=== PATIENT | male | born 1955 | race Caucasian/White ===

== ENCOUNTER → 2019-03-04 | Outpatient (CLI) | payer SELFPAY | PROVIDERS: Family Provider Family Medicine; Visit Provider Internal Medicine Medical Oncology | DX: C91.10 Chronic lymphocytic leukemia of B-cell type not having achieved remission (principal); N18.9 Chronic kidney disease, unspecified; Z87.891 Personal history of nicotine dependence; K30 Functional dyspepsia | CPT/HCPCS: 99214 ==

== ENCOUNTER 2019-03-25 13:46 | Outpatient (CLI) | payer MEDICARE, SELFPAY ==
--- NOTE | 2019-03-25 14:15 | ONC FU_ITS ---
An[facility] Patient Note Patient: Fredy Zuniga Unit #: [id number]: 1955 Dictated By: Anel KellerDate of Visit: Mar 25, 2019 Onc MED Follow-Up/Prog Note Chief Complaint: Chronic lymphocytic leukemia. History of Present Illness: Mr Zuniga is a 64 year-old man with chronic lymphocytic leukemia, Sellers stage 0 at initial diagnosis in 2014. In October 2014 he had presented to the [facility] [place] emergency room after he had an acute episode of feeling dizzy and lightheaded. The episode had started abruptly. There was no actual vertigo with the episode. He did have nausea and sweating, and he turned pale. He also had some trouble breathing, and he felt weak and shaky. He did not have chest pain. The episode lasted only about 20 minutes. He had no further symptoms. His initial evaluation in the emergency room was unremarkable except for an elevated white blood cell count. His subsequent evaluation did include a 48 hour Holter monitor, which apparently showed no abnormality. He was seen for follow-up as an outpatient by Dr. Roy. A CBC at that time showed normal hemoglobin at 15.1 g with hematocrit 46%. The red cell indices were normal. The white blood cell count was elevated at 31,700. The differential included 24% neutrophils, 65% lymphocytes, 9% monocytes, and 2% eosinophils. The report included the presence of abnormal lymphocytes (smudge cells). Dr Pandey had seen him initially in December 2014. He had further evaluation with bone marrow aspiration/biopsy on 01/05/2015. The bone marrow showed increased cellularity at 95%. Flow cytometry confirmed the presence of a population of monotypic B cells consistent with chronic lymphocytic leukemia. There was evidence of CD38 expression in excess of 30%, reported to be an adverse prognostic marker. 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 As he appeared to have early stage disease by clinical evaluation (Sellers stage 0), observation/expectant management was recommended. He has otherwise been in good health. He has no other medical illnesses. He has a history of smoking 2 packs of cigarettes daily for 30 years, but he quit smoking 4 years ago. INTERIM HISTORY: As of his follow-up visit in August 2018 his white count had increased to 142,000. His hemoglobin was down just slightly at 13.6 g. His platelet count was normal at 232,000. He appeared stable clinically, and he just continued on observation/expectant management. As of 12/03/2018 there was further decrease in the hemoglobin to 11.4 g. . Was seen in February for follow-up. His white count that time was 152,000. Dr. Pandey recommended that he now begin treatment with ibrutinib. He has received the medication in the mail and is here today for follow-up. Mr. De Dios has no new concerns today. He states he feels he is doing about the same. He denies any recent infections fever or chills. He denies any nausea or vomiting. He states his bowels are normal for him. He has had no new pain. He has not had any labs drawn since March 03, 2019. He states that he is received education on the ibrutinib from the pharmaceutical company as well as our pharmacist on staff. He is aware not to take grapefruit products with the ibrutinib. His ECOG is 1. Past Medical History: Mr. ZUNIGA's medical history is unremarkable. Past Surgical History: Prevnar 13 in 2016 Surgery on the right knee for torn cartilage in 1972 Allergies: No Known Allergies. Medications: Pantoprazole Sodium 1 (40 mg) Tablet, enteric coated Oral daily Family History: Mr. ZUNIGA's mother is : breast cancer, and lung cancer. Mr. ZUNIGA's father is : Cancer. Mr. ZUNIGA has 1 brother who is alive. Father at age 69 with cancer all over . Primary site apparently was not identified. Mother at age 80 with breast cancer. He has one brother who apparently is in good health. 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 Mr. ZUNIGA quit smoking 6 years ago but had smoked 2.0 packs/day for 30 years. He is an active drinker. Mr. ZUNIGA reports the following support systems: lives in own house and adequate transportation available for expected visits. His diet consists of regular meals. He indicates his activity level as: daily activities. He has a history of smoking 2 packs of cigarettes daily for 30 years. He quit smoking 4 years ago. He has had just very occasional alcohol use. Review Of Symptoms: Constitutional Denies fevers, chills, night sweats, excessive fatigue or weight loss. Allergic/Immunologic No reactions. Eyes Denies significant visual changes. No diplopia. No amaurosis. ENMT Denies changes in hearing, sore throat, mouth sores, difficulty or changes in swallowing ability, and/or sinus drainage. Endocrine No diabetes, thyroid disease or hormone replacement. Denies hot flashes or night sweats. Hematologic/Lymphatic Denies easy bruising or bleeding. The patient denies any tender or palpable lymph nodes. Respiratory Denies dyspnea on exertion, chest pain, cough or hemoptysis. Denies orthopnea. Cardiovascular Denies anginal chest pain, palpitations or orthopnea. Gastrointestinal Denies nausea, vomiting, diarrhea, GI bleeding, or constipation. Denies change in bowel habits and/or stool color, no heartburn or early satiety. Genitourinary (M) Denies hematuria, dysuria, increased frequency, urgency, hesitancy or incontinence. Musculoskeletal Denies joint pain, swelling or redness. No decreased range of motion. Integumentary Denies chronic rashes, inflammation, ulcerations or skin changes. Neurologic Denies headache, blurred vision, and no areas of focal weakness or numbness. Normal gait. No sensory problems. Psychiatric Denies insomnia, depression, lauren or mood swings. Vital Signs: Performed on Mar 25, 2019 13:22 Height - 71.00 in Weight - 280.0 lbs (HIGH) BSA - 2.43 sq.m BMI - 39.05 (HIGH) Temperature - 99.0 F (HIGH) Pulse - 54 /min (LOW) Respiration - 22 /min BP - 134/72 mm(hg) O2 Sat - 96 % Pain - 0,1 - No physically strenuous activity, but ambulatory and able to carry out light or sedentary work (e.g. office work, light house work). (ECOG) Physical Examination: Constitutional Alert, oriented, no acute distress. Skin pink, warm and dry. Head Normocephalic; atraumatic. Eyes Conjunctivae and sclerae are clear and without icterus. Pupils are reactive and equal. ENMT No oral exudates, ulcers, masses, thrush or mucositis. Oropharynx clear. Tongue normal. Neck Supple without masses or thyromegaly. No jugular venous distension. Hematologic/Lymphatic No petechiae or purpura. Respiratory Lungs are clear to auscultation without rhonchi or wheezing. Cardiovascular Regular rate and rhythm of heart without murmurs,clicks, gallops or rubs. Abdomen Non-tender, non-distended or ascites. Back/Spine Non-tender to palpation. Extremities No visible deformities, no cyanosis, clubbing or edema. Musculoskeletal No tenderness or swelling, normal range of motion without obvious weakness. Integumentary No rashes or lesions. Neurologic No sensory or motor deficits, normal cerebellar function, normal gait. Psychiatric Alert and oriented times three. Coherent speech. Verbalizes understanding of our discussions today. Laboratory:Test performed on Mar 03, 2019 08:08 Vitamin B12 433 pg/mL % Iron Saturation 20 % Glucose 112 mg/dL LDH, Total 219 IU/L BUN 19 mg/dL Iron, Total 74 mcg/dL Creatinine 1.37 mg/dL TIBC 366 mcg/dL Cr Clearance (Est) 93.58 mL/min Sodium 140 mmol/L Potassium 4.7 mmol/L Chloride 104 mmol/L CO2 24 mmol/L Calcium 9.4 mg/dL Protein, Total 7.1 g/dL Albumin 4.5 g/dL Bilirubin, Total 0.6 mg/dL Alkaline Phosphatase 111 IU/L AST (SGOT) 13 IU/L ALT (SGPT) 12 IU/L WBC 152 10^9/L RBC 3.4 10^12/L HGB 10.2 g/dL HCT 33.3 % MCV 97.9 fl MCH 30 pg MCHC 30.6 g/dL RDW 14.8 % Platelet Count 201 10^9/L Test performed on Dec 02, 2018 15:19 MPV 9.6 fL Neutrophils (Gran) 11.68 10^9/L Lymphocytes 33.87 10^9/L Monocytes 2.34 10^9/L Eosinophils 1.17 10^9/L Manual Segs 10 % Manual Lymphocytes 29 % Manual Monocytes 2 % Manual Eosinophils 1 % Test performed on Dec 02, 2018 07:55 Hemoglobin A1C 5.6 % Impression: 1. Patient with chronic lymphocytic leukemia, Sellers stage 0 by clinical evaluation. 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 He did not, however, have any indication for treatment. 2. He is being followed on observation/expectant management. 3. By clinical evaluation he likely has some underlying COPD. 4. He has evidence of chronic kidney disease. During followup there has been a gradual and progressive increase in his lymphocyte count. He also has now become mildly anemic, and I notice today that he does have significantly enlarged spleen. The serum iron studies show borderline low transferrin saturation, but overall the findings are most consistent with progression of the chronic lymphocytic leukemia, now to Sellers stage III. Plan: 1. Allopurinol 300 mg daily yesterday. 2. He will start Imbruvica???ibrutinib 420 mg daily tonight or in the a.m. 3. He may use Compazine 10 mg 1 every 4-6 as needed nausea if he develops any nausea with the ibrutinib. 4. Of asked for repeat CBC CMP today to know where we are at when he starts the Imbruvica. 5. I have set him up to have weekly labs at [facility] and see Dr. Pandey in 2 weeks as he will be the [facility] seeing patients then. 6. Mr. De Dios was instructed to contact us in the interim should questions or problems arise. 7. AVOID GRAPEFRUIT AND SEVILLE ORANGES WHILE TAKING THIS MEDICATION. 8. The patient and family were informed of chemotherapy plan and specific drugs were discussed. We also discussed how chemotherapy works and identified common side effects including hypertension, hemorrhage, skin rash and skin changes (HFSR-hand foot skin reaction), EKG changes, diverticulitis, colitis reversible posterior leukoencephalopathy syndrome, dysphonia, myelosuppression including neutropenia, anemia, thrombocytopenia, peripheral neuropathy, fatigue, nausea, diarrhea, constipation, skin changes, mouth sores, drug hypersensitivity, allergic reactions or anaphylaxis and abnormal lab values. They have also been informed how to contact the clinic with side effects or symptoms, including but not limited to fever greater than 100.4???, chills, sore throat or mouth sores, cough, nasal discharge, diarrhea, constipation, nausea and/or vomiting not relieved with medications on hand at home, as well as any other concern or question they may have. Our hours are 8:00 a.m. to 4:30 p.m. on Sunday through and 8-12:00 on Sunday. However, someone is non destructive testing scientist 24 hours per day and they have been advised to contact the [facility] at if it is after hours. We have also discussed potential long-term side effects of chemotherapy including secondary cancers, infertility, pulmonary complications, cardiac complications, and again peripheral neuropathy. We have discussed that they certainly need to let us know before taking any antioxidants or herbal or further dietary supplements, as we are unsure of how these agents react with chemotherapy and we request that they avoid these products for now. They are informed that it is okay to take the multivitamins. They verbally state that they understand to take all medications as directed by the provider unless otherwise indicated. Instructions for oral care with baking soda and salt water rinses as well as a guide for use of [id number] medication were provided with the treatment plan. They have been given a written patient treatment plan, of which a copy is in the chart, as well as specific drug information, and a copy of that is also in the chart. Copies are in the chart for further written information provided to the patient. They have no questions and verbalized understanding and are willing to proceed with chemotherapy at this time. The majority of this visit consisted of time spent (30 minutes) in face to face communication with this patient and/or his family in regards to plan of care, side effect identification and management. Signed By: Anel Keller-, AOCNP Sang Pandey MD <<Signature on File>>
[2019-03-25 15:06] LABS: Alanine Aminotransferase 10 U/L (0-41); Albumin Level 4.8 g/dL (3.5-5.2); Alkaline Phosphatase 131 IU/L (40-130); Anion Gap 15.3 (5-19); Aspartate Amino Transferase 15 U/L (0-40); Blood Urea Nitrogen 21 mg/dL (8-23); Calcium 10.1 mg/Dl (8.8-10.2); Carbon Dioxide 27 mmol/L (22-29); Chloride 99 mmol/L (98-107); Globulin 2.2 g/dL (1.3-4.6); Glomerular Filtration Rate 50.7 mL/min (90-130); Glucose 109 mg/dL (74-106); Potassium 4.3 mmol/L (3.5-5.1); Sodium 137 mmol/L (136-145); Total Bilirubin 0.6 mg/dL (0.15-1.2)
[2019-03-25 16:28] LABS: Basophils # 0.3 10^3/uL (0.0-0.1); Basophils % 0.2 %; Eosinophils # 0.2 10^3/uL (0.0-0.8); Eosinophils % 0.1 %; Hematocrit 33.2 % (42.0-52.0); Hemoglobin 9.9 g/dL (11.7-16.6); Lymphocytes % 88.4 %; Mean Corpuscular HGB Conc 29.8 g/dL (30.0-36.0); Mean Corpuscular Hemoglobin 30.7 pg (28.0-34.0); Mean Corpuscular Volume 103.1 fL (80-94); Mean Platelet Volume 9.8 fL (7.4-10.4); Monocytes # 11.8 10^3/uL (0.2-0.9); Monocytes % 7.4 %; Neutrophils # 5.7 10^3/uL (1.8-7.7); Neutrophils % 3.6 %; Nucleated Red Blood Cells % 0 %; Platelet Count 219 10^3/cmm (130-400); Red Blood Count 3.22 10^6/uL (4.1-5.3); Red Cell Distribution Width 14.5 % (12.1-15.1)
[2019-03-25 22:16] LABS: Lymphocytes # 141.6 10^3/uL (0.8-4.8); White Blood Count 160.2 10^3/uL (4.0-10.0)
[2019-03-25 22:17] LABS: Slide Review Slide Review Perform
== END 2019-03-25 13:47 | disposition home or self-care (01) ==
PROVIDERS: Family Provider Family Medicine; PCP Family Medicine; Visit Provider Nurse Practitioner
DX: C91.10 Chronic lymphocytic leukemia of B-cell type not having achieved remission (principal); J44.9 Chronic obstructive pulmonary disease, unspecified; N18.9 Chronic kidney disease, unspecified; Z79.899 Other long term (current) drug therapy; Z87.891 Personal history of nicotine dependence
CPT/HCPCS: 80053; 85025; 99214

== ENCOUNTER 2019-04-08 09:57 | Outpatient (CLI) | payer MEDICARE, SELFPAY ==
--- NOTE | 2019-04-14 23:46 | ONC FU_ITS ---
Dr. Pandey Patient Follow-Up Note Patient: Fredy Pabon Unit #: [id number]: 1955 Dicatated By: Sang Pandey M.D.Date of Visit:Apr 08, 2019 Onc Med Follow-up/Prog Note Chief Complaint: Chronic lymphocytic leukemia. History of Present Illness: This is a 64 year-old man with chronic lymphocytic leukemia, Sellers stage 0 at initial diagnosis in 2014. In October 2014 he had presented to the [place] emergency room after he had an acute episode of feeling dizzy and lightheaded. The episode had started abruptly. There was no actual vertigo with the episode. He did have nausea and sweating, and he turned pale. He also had some trouble breathing, and he felt weak and shaky. He did not have chest pain. The episode lasted only about 20 minutes. He had no further symptoms. His initial evaluation in the emergency room was unremarkable except for an elevated white blood cell count. His subsequent evaluation did include a 48 hour Holter monitor, which apparently showed no abnormality. He was seen for follow-up as an outpatient by Dr. Roy. A CBC at that time showed normal hemoglobin at 15.1 g with hematocrit 46%. The red cell indices were normal. The white blood cell count was elevated at 31,700. The differential included 24% neutrophils, 65% lymphocytes, 9% monocytes, and 2% eosinophils. The report included the presence of abnormal lymphocytes (smudge cells). I had seen him initially in December 2014. He had further evaluation with bone marrow aspiration/biopsy on 01/05/2015. The bone marrow showed increased cellularity at 95%. Flow cytometry confirmed the presence of a population of monotypic B cells consistent with chronic lymphocytic leukemia. There was evidence of CD38 expression in excess of 30%, reported to be an adverse prognostic marker. 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 As he appeared to have early stage disease by clinical evaluation (Sellers stage 0), observation/expectant management was recommended. He has otherwise been in good health. He has no other medical illnesses. He has a history of smoking 2 packs of cigarettes daily for 30 years, but he quit smoking 4 years ago. INTERIM HISTORY: As of his follow-up visit in August 2018 his white count had increased to 142,000. His hemoglobin was down just slightly at 13.6 g. His platelet count was normal at 232,000. He appeared stable clinically, and he continued on observation/expectant management. As of 12/03/2018 there was further decrease in the hemoglobin to 11.4 g. As of his follow-up visit on 03/04/2019 his hemoglobin was down to 10.2 g with his white blood cell count elevated at 152,000. His platelet count was still normal at 201,000. At that time I had discussed the possibility of starting treatment with ibrutinib. It was deferred pending verification of insurance coverage, but he did then start treatment with ibrutinib 420 mg daily on 03/25/2019. He also has been on prophylaxis with allopurinol. He is seen for a scheduled visit. He has been feeling pretty good generally. He says his energy is been a little better. He is doing light work. His appetite is good. He has lost some weight. He does not have fever or night sweats. He has some shortness of breath with activity. He has just occasional cough. He does not complain of chest pain. Has a little bit of acid reflux. He has noticed that his bowel movements have been more frequent, and on Sunday he actually did have some diarrhea. His urination is also been more frequent. He recently has had some pain and swelling in his hands. He has chronic pain in the right knee. He has occasional numbness in the right foot. Medications: Allopurinol 1 Tablet (of 300 mg) Oral daily, Pantoprazole Sodium 1 (40 mg) Tablet, enteric coated Oral daily Allergies: No Known Allergies. Review of Systems: Constitutional - His energy is preetty good. He is doing light work at home. His appetite is good. He has lost some weight. No fever, chills, hot flashes, or night sweats. ECOG score is 1, ENMT - He has a little bit of sinus drainage. No mouth sores. No sore throat or difficulty swallowing, Hematologic/Lymphatic - No abnormal bruising or bleeding, Respiratory - He has shortness of breath with activity. He has just occasional cough. No pleuritic pain or hemoptysis, Cardiovascular - No angina pain. No palpitations, Gastrointestinal - No nausea or vomiting. He has a little acid reflux. Recently he has been having more frequent bowel movement. He had diarrhea on Sunday. No blood in the stool or black stools, Genitourinary (M) - No dysuria or hematuria. His urination has also been more frequent. No urgency or incontinence, Musculoskeletal - He has recently had some pain and swelling in his hands. He has chronic pain in his right knee, Integumentary - No skin complications, Neurologic - No headache or dizziness. He occasionally has numbness in his right foot, Psychiatric - No anxiety or depression. He has an irregular sleeping schedule. Vital Signs: Performed on Apr 08, 2019 10:21 Height - 71.00 in Weight - 241 lbs (LOW) BSA - 2.28 sq.m BMI - 33.61 (HIGH) Temperature - 97 F (LOW) Pulse - 53 /min (LOW) Respiration - 16 /min BP - 120/74 mm(hg) O2 Sat - 96 % Pain - 2 Physical Examination: Constitutional - He looks pretty good generally, Eyes - Sclerae nonicteric. Conjunctivae clear, ENMT - No lesions noted in the oral cavity, Hematologic/Lymphatic - No cervical, clavicular, or axillary adenopathy, Respiratory - Lungs sound clear with diminished air movement bilaterally, Cardiovascular - Heart rhythm is regular. There is no murmur, gallop, or rub noted, Abdomen - Abdomen is moderately distended. Liver is not enlarged. Spleen is significantly enlarged, as before. There is no abdominal mass or ascites noted and there is no inguinal adenopathy, Extremities - No edema, Neurologic - No focal neurologic deficits noted. Lab/Imaging: Test performed on Apr 07, 2019 09:32 Glucose 147 mg/dL BUN 21 mg/dL Creatinine 1.51 mg/dL Cr Clearance (Est) 86.45 mL/min Sodium 139 mmol/L Potassium 3.9 mmol/L Chloride 100 mmol/L CO2 24 mmol/L Calcium 9.4 mg/dL Protein, Total 6.9 g/dL Albumin 4.6 g/dL Bilirubin, Total 0.5 mg/dL Alkaline Phosphatase 103 IU/L AST (SGOT) 9 IU/L ALT (SGPT) 7 IU/L WBC 286.6 10^9/L RBC 3.60 10^12/L HGB 10.9 g/dL HCT 35.6 % MCV 98.9 fl MCH 30.3 pg MCHC 30.6 g/dL RDW 15.2 % Platelet Count 300 10^9/L MPV 10.3 fL Neutrophils (Gran) 2.87 10^9/L Lymphocytes 48.72 10^9/L Monocytes 2.87 10^9/L Eosinophils 2.87 10^9/L Manual Lymphocytes 17 % Manual Monocytes 80 % Manual Eosinophils 1 % Manual Basophils 1 % Impression: 1. Patient with chronic lymphocytic leukemia, Sellers stage 0 at initial diagnosis. 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 He did not, however, have any indication for treatment, and he was initially followed on observation/expectant management. 2. By clinical evaluation he likely has some underlying COPD. 3. He has evidence of chronic kidney disease. During followup there was a gradual and progressive increase in his lymphocyte count. As of February 2019 he had become mildly anemic, and he also had associated splenomegaly. The serum iron studies had shown borderline low transferrin saturation, but overall the findings appeared to be most consistent with progression of the chronic lymphocytic leukemia to Sellers stage III. On 03/25/2019 he began treatment with ibrutinib 420 mg daily. He also started prophylaxis with allopurinol. He appears to be tolerating the medication well. As expected, there has been an increase in his lymphocyte count. His hemoglobin thus far remains stable, and his platelet count remains normal. Plan: He will continue treatment with ibrutinib 420 mg daily. At least for now he also will continue prophylaxis with allopurinol. I will recheck his blood count in 2 weeks, and I will see him for a follow-up visit in one month. Signed By: Sang Pandey M.D. <<Signature on File>>
== END 2019-04-08 09:58 | disposition home or self-care (01) ==
LOC: STFRANCIS 04-09 08:53
PROVIDERS: Family Provider Family Medicine; PCP Family Medicine; Visit Provider Internal Medicine Medical Oncology
DX: C91.10 Chronic lymphocytic leukemia of B-cell type not having achieved remission (principal); G89.29 Other chronic pain; M25.561 Pain in right knee; R16.1 Splenomegaly, not elsewhere classified; J44.9 Chronic obstructive pulmonary disease, unspecified; N18.9 Chronic kidney disease, unspecified; Z79.899 Other long term (current) drug therapy; Z87.891 Personal history of nicotine dependence
CPT/HCPCS: 99214

== ENCOUNTER 2019-05-06 06:00 | Outpatient (CLI) | payer MEDICARE, SELFPAY ==
--- NOTE | 2019-05-09 06:32 | ONC FU_ITS ---
Dr. Pandey Patient Follow-Up Note Patient: Fredy Pabon Unit #: [id number]: 1955 Dicatated By: Sang Pandey M.D.Date of Visit:May 06, 2019 Onc Med Follow-up/Prog Note Chief Complaint: Chronic lymphocytic leukemia. History of Present Illness: This is a 64 year-old man with chronic lymphocytic leukemia, Sellers stage 0 at initial diagnosis in 2014. In October 2014 he had presented to the [place] emergency room after he had an acute episode of feeling dizzy and lightheaded. The episode had started abruptly. There was no actual vertigo with the episode. He did have nausea and sweating, and he turned pale. He also had some trouble breathing, and he felt weak and shaky. He did not have chest pain. The episode lasted only about 20 minutes. He had no further symptoms. His initial evaluation in the emergency room was unremarkable except for an elevated white blood cell count. His subsequent evaluation did include a 48 hour Holter monitor, which apparently showed no abnormality. He was seen for follow-up as an outpatient by Dr. Roy. A CBC at that time showed normal hemoglobin at 15.1 g with hematocrit 46%. The red cell indices were normal. The white blood cell count was elevated at 31,700. The differential included 24% neutrophils, 65% lymphocytes, 9% monocytes, and 2% eosinophils. The report included the presence of abnormal lymphocytes (smudge cells). I had seen him initially in December 2014. He had further evaluation with bone marrow aspiration/biopsy on 01/05/2015. The bone marrow showed increased cellularity at 95%. Flow cytometry confirmed the presence of a population of monotypic B cells consistent with chronic lymphocytic leukemia. There was evidence of CD38 expression in excess of 30%, reported to be an adverse prognostic marker. 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 As he appeared to have early stage disease by clinical evaluation (Sellers stage 0), observation/expectant management was recommended. He has otherwise been in good health. He has no other medical illnesses. He has a history of smoking 2 packs of cigarettes daily for 30 years, but he quit smoking 4 years ago. INTERIM HISTORY: As of his follow-up visit in August 2018 his white count had increased to 142,000. His hemoglobin was down just slightly at 13.6 g. His platelet count was normal at 232,000. He appeared stable clinically, and he continued on observation/expectant management. As of 12/03/2018 there was further decrease in the hemoglobin to 11.4 g. As of his follow-up visit on 03/04/2019 his hemoglobin was down to 10.2 g with his white blood cell count elevated at 152,000. His platelet count was still normal at 201,000. At that time I had discussed the possibility of starting treatment with ibrutinib. It was deferred pending verification of insurance coverage, but he did then start treatment with ibrutinib 420 mg daily on 03/25/2019. He also was given prophylaxis with allopurinol. As of his follow-up visit on 04/08/2019 his white count had increased to 286,000 with hemoglobin mildly decreased at 10.9 g and platelet count normal at 300,000. He continued ibrutinib 420 mg daily. He is seen for a scheduled visit. He has not been feeling is good, mainly due to having diarrhea for the past 5 days. He also complains of having lots of gas, and he has had some dull pain in the abdominal area. He has loperamide, but he had just recently started taking it. His energy had been pretty good up until then. His ECOG score is 1. His appetite has been down a little. He felt warm one night, but he has not had fever or night sweats. He has some shortness of breath. His cough is better. He does not complain of chest pain. He has no complaints with bladder function. He has been having pain in his right shoulder. He occasionally has lightheadedness. He has tingling on the bottoms of his feet. Medications: Allopurinol 1 Tablet (of 300 mg) Oral daily, Pantoprazole Sodium 1 (40 mg) Tablet, enteric coated Oral daily Allergies: No Known Allergies. Review of Systems: Constitutional - His energy was preetty good, but recently it has been down some. He is still doing light work at home. His appetite is also down. He has gained weight. He felt hot one night. He otherwise has not had fever, and he does not have night sweats. ECOG score is 1, ENMT - He sometimes has sinus drainage. No mouth sores. No sore throat or difficulty swallowing, Hematologic/Lymphatic - No abnormal bruising or bleeding, Respiratory - He has shortness of breath with activity. His cough is better. No pleuritic pain or hemoptysis, Cardiovascular - No angina pain. No palpitations, Gastrointestinal - No nausea or vomiting. He has lots of gas. He has had diarrhea for 5 days, and his stools have been dark. He has started taking loperamide. He has not been aware of any blood in the stool, Genitourinary (M) - No dysuria or hematuria. No urinary frequency. No urgency or incontinence, Musculoskeletal - He recently had some pain in his right shoulder, but it lasted only a few hours. He has chronic pain in his right knee, Integumentary - No skin complications, Neurologic - No headache. He occasionally gets lightheaded. He occasionally has numbness in his right foot, Psychiatric - No anxiety or depression. He has been sleeping OK. Vital Signs: Performed on May 06, 2019 14:17 Height - 71.00 in Weight - 269 lbs (HIGH) BSA - 2.39 sq.m BMI - 37.52 (HIGH) Temperature - 98.2 F (LOW) Pulse - 55 /min (LOW) Respiration - 20 /min BP - 121/74 mm(hg) O2 Sat - 94 % (LOW) Pain - 0 Physical Examination: Constitutional - He looks pretty good generally, Eyes - Sclerae nonicteric. Conjunctivae clear, ENMT - No lesions noted in the oral cavity, Hematologic/Lymphatic - No cervical, clavicular, or axillary adenopathy, Respiratory - Lungs sound clear with diminished air movement bilaterally, Cardiovascular - Heart rhythm is regular. There is no murmur, gallop, or rub noted, Abdomen - Abdomen is moderately distended but soft. Liver is not enlarged. I am not able to palpate the spleen, though it previously has been enlarged. There is no abdominal mass or ascites noted and there is no inguinal adenopathy, Extremities - No edema, Neurologic - No focal neurologic deficits noted. Lab/Imaging: Test performed on May 06, 2019 07:38 Glucose 126 mg/dL BUN 28 mg/dL Creatinine 1.75 mg/dL Cr Clearance (Est) 71.66 mL/min Sodium 137 mmol/L Potassium 4.3 mmol/L Chloride 103 mmol/L CO2 22 mmol/L Calcium 9.5 mg/dL Protein, Total 7 g/dL Albumin 4.3 g/dL Bilirubin, Total 0.6 mg/dL Alkaline Phosphatase 100 IU/L AST (SGOT) 11 IU/L ALT (SGPT) 10 IU/L WBC 353.4 10^9/L RBC 4.06 10^12/L HGB 12.3 g/dL HCT 38.2 % MCV 94.1 fl MCH 30.3 pg MCHC 32.2 g/dL RDW 14.9 % Platelet Count 363 10^9/L MPV 10.3 fL Neutrophils (Gran) 3.53 10^9/L Lymphocytes 162.56 10^9/L Manual Segs 1 % Manual Lymphocytes 46 % Atypical Lymphs 53 % Platelet Estimate consistent with count RBC Morphology normal Impression: 1. Patient with chronic lymphocytic leukemia, Sellers stage 0 at initial diagnosis. 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 He did not, however, have any indication for treatment, and he was initially followed on observation/expectant management. 2. By clinical evaluation he likely has some underlying COPD. 3. He has evidence of chronic kidney disease. During followup there was a gradual and progressive increase in his lymphocyte count. As of February 2019 he had become mildly anemic, and he also had associated splenomegaly. The serum iron studies had shown borderline low transferrin saturation, but overall the findings appeared to be most consistent with progression of the chronic lymphocytic leukemia to Sellers stage III. On 03/25/2019 he began treatment with ibrutinib 420 mg daily. He also started prophylaxis with allopurinol. Since then there has been a significant increase in his lymphocyte count. However, he does appear to be showing some response, as there has been an increase in his hemoglobin level. His platelet count remains normal. He has now developed significant diarrhea, which could be treatment related. Plan: For now he will continue treatment with ibrutinib 420 mg daily. He will stop his iron supplement and he will avoid milk products. He will take loperamide as directed. If the diarrhea persists, he will need to stop the ibrutinib. Signed By: Sang Pandey M.D. <<Signature on File>>
== END 2019-05-06 06:01 | disposition home or self-care (01) ==
LOC: ONCMED 14:19
PROVIDERS: Family Provider Family Medicine; PCP Family Medicine; Visit Provider Internal Medicine Medical Oncology
DX: C91.10 Chronic lymphocytic leukemia of B-cell type not having achieved remission (principal); K52.1 Toxic gastroenteritis and colitis; T45.1X5A Adverse effect of antineoplastic and immunosuppressive drugs, initial encounter; J44.9 Chronic obstructive pulmonary disease, unspecified; N18.9 Chronic kidney disease, unspecified; Z79.899 Other long term (current) drug therapy; Z87.891 Personal history of nicotine dependence
CPT/HCPCS: 99214

== ENCOUNTER 2019-06-03 06:00 | Outpatient (CLI) | payer MEDICARE, SELFPAY ==
--- NOTE | 2019-06-05 12:04 | ONC FU_ITS ---
Dr. Pandey Patient Follow-Up Note Patient: Fredy Pabon Unit #: [id number]: 1955 Dicatated By: Sang Pandey M.D.Date of Visit:Jun 03, 2019 Onc Med Follow-up/Prog Note Chief Complaint: Chronic lymphocytic leukemia. History of Present Illness: This is a 64 year-old man with chronic lymphocytic leukemia, Sellers stage 0 at initial diagnosis in 2014. In October 2014 he had presented to the [place] emergency room after he had an acute episode of feeling dizzy and lightheaded. The episode had started abruptly. There was no actual vertigo with the episode. He did have nausea and sweating, and he turned pale. He also had some trouble breathing, and he felt weak and shaky. He did not have chest pain. The episode lasted only about 20 minutes. He had no further symptoms. His initial evaluation in the emergency room was unremarkable except for an elevated white blood cell count. His subsequent evaluation did include a 48 hour Holter monitor, which apparently showed no abnormality. He was seen for follow-up as an outpatient by Dr. Roy. A CBC at that time showed normal hemoglobin at 15.1 g with hematocrit 46%. The red cell indices were normal. The white blood cell count was elevated at 31,700. The differential included 24% neutrophils, 65% lymphocytes, 9% monocytes, and 2% eosinophils. The report included the presence of abnormal lymphocytes (smudge cells). I had seen him initially in December 2014. He had further evaluation with bone marrow aspiration/biopsy on 01/05/2015. The bone marrow showed increased cellularity at 95%. Flow cytometry confirmed the presence of a population of monotypic B cells consistent with chronic lymphocytic leukemia. There was evidence of CD38 expression in excess of 30%, reported to be an adverse prognostic marker. 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 As he appeared to have early stage disease by clinical evaluation (Sellers stage 0), observation/expectant management was recommended. He has otherwise been in good health. He has no other medical illnesses. He has a history of smoking 2 packs of cigarettes daily for 30 years, but he quit smoking 4 years ago. INTERIM HISTORY: As of his follow-up visit in August 2018 his white count had increased to 142,000. His hemoglobin was down just slightly at 13.6 g. His platelet count was normal at 232,000. He appeared stable clinically, and he continued on observation/expectant management. As of 12/03/2018 there was further decrease in the hemoglobin to 11.4 g. As of his follow-up visit on 03/04/2019 his hemoglobin was down to 10.2 g with his white blood cell count elevated at 152,000. His platelet count was still normal at 201,000. At that time I had discussed the possibility of starting treatment with ibrutinib. It was deferred pending verification of insurance coverage, but he did then start treatment with ibrutinib 420 mg daily on 03/25/2019. He also was given prophylaxis with allopurinol. As of his follow-up visit on 04/08/2019 his white count had increased to 286,000 with hemoglobin mildly decreased at 10.9 g and platelet count normal at 300,000. He continued ibrutinib 420 mg daily. As of 05/06/2019 the white count had increased to 353,000 but with his hemoglobin increased to 12.3 g and his platelet count normal at 363,000. He is seen for a followup visit. He has been feeling pretty good generally. Energy has been pretty good, and he has been doing light work. ECOG score is 1. He has good appetite. He has no fever or night sweats. He had a runny nose a week ago, and he sometimes has cough. He has some shortness of breath with activity. He does not complain of chest pain. He has no GI or complaints. In particular, he is not having diarrhea now. He has joint pain occasionally, mainly in the knees. He has some numbness/tingling in his feet. Medications: Allopurinol 1 Tablet (of 300 mg) Oral daily, Pantoprazole Sodium 1 (40 mg) Tablet, enteric coated Oral daily Allergies: No Known Allergies. Review of Systems: Constitutional - His energy is overall good. He is able to do some light house work. Appetite is good and weight is up about 13 pounds from his [facility] visit. No fever, chills, hot flashes, or night sweats. ECOG score 1, ENMT - He has had some sinus drainage. No mouth sores. No sore throat or difficulty swallowing, Hematologic/Lymphatic - He bruisies easily, Respiratory - He has some shortness of breath with activity. He has an occaional cough. No pleuritic pain or hemoptysis, Cardiovascular - No angina pain. No palpitations, Gastrointestinal - No nausea or vomiting. No heartburn or acid reflux. No diarrhea or constipation. No blood in the stool or black stools, Genitourinary (M) - No dysuria or hematuria. No urinary frequency. No urgency or incontinence, Musculoskeletal - He has some arthritis pain, mainly in his knees, Integumentary - No skin complications, Neurologic - No headache. He has occasional dizziness if he gets up or moves too quickly. No numbness/paresthesias or other focal neurologic symptoms, Psychiatric - No anxiety or depression. No insomnia. Vital Signs: Performed on Jun 03, 2019 10:30 Height - 71.00 in Weight - 254 lbs (LOW) BSA - 2.33 sq.m BMI - 35.43 (HIGH) Temperature - 98.2 F (LOW) Pulse - 65 /min Respiration - 17 /min BP - 164/94 mm(hg) (HIGH) O2 Sat - 94 % (LOW) Pain - 0 Physical Examination: Constitutional - He looks pretty good generally, Eyes - Sclerae nonicteric. Conjunctivae clear, ENMT - No lesions noted in the oral cavity, Hematologic/Lymphatic - No cervical, clavicular, or axillary adenopathy, Respiratory - Lungs sound clear with diminished air movement bilaterally, Cardiovascular - Heart rhythm is regular. There is no murmur, gallop, or rub noted, Abdomen - Moderately distended and tympanic. Liver is not enlarged. Spleen is not palpable. There is no abdominal mass or ascites noted and there is no inguinal adenopathy, Extremities - No edema, Integumentary - There is onychomycosis involving the third and fourth fingers on the right hand, Neurologic - No focal neurologic deficits noted. Lab/Imaging: CBC shows hemoglobin 12.6 g, white blood cell count 250,000, and platelet count 320,000. The differential shows 2% segs, 87% lymphocytes, 10% atypical lymphocytes, and 1% monocytes. Comprehensive metabolic profile is unremarkable except for borderline renal function with BUN 19 and creatinine 1.36 mg/dL. LDH is normal at 221 U/L. Impression: 1. Patient with chronic lymphocytic leukemia, Sellers stage 0 at initial diagnosis. 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 He did not, however, have any indication for treatment, and he was initially followed on observation/expectant management. 2. By clinical evaluation he likely has some underlying COPD. 3. He has evidence of chronic kidney disease. During followup there was a gradual and progressive increase in his lymphocyte count. As of February 2019 he had become mildly anemic, and he also had associated splenomegaly. The serum iron studies had shown borderline low transferrin saturation, but overall the findings appeared to be most consistent with progression of the chronic lymphocytic leukemia to Sellers stage III. On 03/25/2019 he began treatment with ibrutinib 420 mg daily. He also started prophylaxis with allopurinol. During subsequent followup there was a significant increase in his lymphocyte count, reaching a maximum of 353,000 on 05/06/2019. However, he has had evidence of response, as there has been an increase in his hemoglobin level. It does appear that his lymphocyte count is starting to decline now. He has been tolerating the ibrutinib well, though his blood pressure now has become mildly elevated, which could be treatment related. Plan: He will continue treatment with ibrutinib 420 mg daily. He will be scheduled for a follow-up visit in 1 month. In the meantime, I will see pain get his blood pressure checked at least once a week. Signed By: Sang Pandey M.D. <<Signature on File>>
== END 2019-06-03 06:01 | disposition home or self-care (01) ==
LOC: ONCMED 11:47
PROVIDERS: Family Provider Family Medicine; PCP Family Medicine; Visit Provider Internal Medicine Medical Oncology
DX: C91.10 Chronic lymphocytic leukemia of B-cell type not having achieved remission (principal); N18.9 Chronic kidney disease, unspecified; Z87.891 Personal history of nicotine dependence; Z79.899 Other long term (current) drug therapy
CPT/HCPCS: 99214

== ENCOUNTER 2019-06-26 11:55 | Outpatient (CLI) | payer MEDICARE, SELFPAY ==
[2019-06-26 14:58] LABS: Basophils # 0.1 10^3/uL (0.0-0.1); Eosinophils % 0.4 %; Hematocrit 40.3 % (42.0-52.0); Hemoglobin 12.1 g/dL (11.7-16.6); Lymphocytes % 93.2 %; Mean Corpuscular Hemoglobin 28.9 pg (28.0-34.0); Mean Corpuscular Volume 96.4 fL (80-94); Monocytes # 7.5 10^3/uL (0.2-0.9); Monocytes % 2.8 %; Neutrophils # 8.3 10^3/uL (1.8-7.7); Neutrophils % 3.2 %; Nucleated Red Blood Cells % 0 %; Platelet Count 430 10^3/cmm (130-400); Red Blood Count 4.18 10^6/uL (4.1-5.3); Red Cell Distribution Width 14.8 % (12.1-15.1)
[2019-06-26 15:09] LABS: Lymphocytes # 245.6 10^3/uL (0.8-4.8); White Blood Count 263.5 10^3/uL (4.0-10.0)
[2019-06-26 15:40] LABS: Alanine Aminotransferase 18 U/L (0-41); Albumin Level 4.6 g/dL (3.5-5.2); Alkaline Phosphatase 111 IU/L (40-130); Anion Gap 17.4 (5-19); Aspartate Amino Transferase 17 U/L (0-40); Blood Urea Nitrogen 21 mg/dL (8-23); Calcium 9.8 mg/dL (8.5-10.5); Carbon Dioxide 27 mmol/L (22-29); Chloride 103 mmol/L (98-107); Globulin 2.6 g/dL (1.3-4.6); Glomerular Filtration Rate 43.5 mL/min (90-130); Glucose 102 mg/dL (65-115); Lactate Dehydrogenase 188 U/L (135-225); Osmolality Calculated 293 mOsm/kg (285-295); Potassium 4.4 mmol/L (3.5-5.1); Sodium 143 mmol/L (136-145); Total Bilirubin 0.5 mg/dL (0.15-1.2); Total Protein 7.2 g/dL (6.6-8.7)
[2019-06-26 16:08] LABS: Slide Review Slide Review Perform
[2019-06-26 16:10] LABS: Absolute Segmented Neutrophil 5.2 10/cmm (1.6-7.1); Lymphocytes 87 %; Monocytes Absolute 2.6 10^3/cmm (0.1-0.6); Segmented Neutrophils 2 %; Total Cells Counted 100 (0-100)
[2019-06-26 16:11] LABS: Lymphocytes Absolute 255.6 10^3/cmm (1.2-3.4); Platelet Estimate Normal (Normal)
== END 2019-06-26 11:56 | disposition home or self-care (01) ==
LOC: ONCMED 15:21
PROVIDERS: Family Provider Family Medicine; PCP Family Medicine; Visit Provider Internal Medicine Medical Oncology
DX: C91.10 Chronic lymphocytic leukemia of B-cell type not having achieved remission (principal)
CPT/HCPCS: 36415; 80053; 83615; 85007; 85025

== ENCOUNTER 2019-06-27 06:48 | Outpatient (CLI) | payer MEDICARE, SELFPAY ==
--- NOTE | 2019-06-27 15:19 | ONC FU_ITS ---
Dr. Pandey Patient Follow-Up Note Patient: Fredy Pabon Unit #: [id number]: [id number] Dicatated By: Sang Pandey M.D.Date of Visit:Jun 27, 2019 Onc Med Follow-up/Prog Note Chief Complaint: Chronic lymphocytic leukemia. History of Present Illness: This is a 64 year-old man with chronic lymphocytic leukemia, Sellers stage 0 at initial diagnosis in 2014. In October 2014 he had presented to the [facility] emergency room after he had an acute episode of feeling dizzy and lightheaded. The episode had started abruptly. There was no actual vertigo with the episode. He did have nausea and sweating, and he turned pale. He also had some trouble breathing, and he felt weak and shaky. He did not have chest pain. The episode lasted only about 20 minutes. He had no further symptoms. His initial evaluation in the emergency room was unremarkable except for an elevated white blood cell count. His subsequent evaluation did include a 48 hour Holter monitor, which apparently showed no abnormality. He was seen for follow-up as an outpatient by Dr. Roy. A CBC at that time showed normal hemoglobin at 15.1 g with hematocrit 46%. The red cell indices were normal. The white blood cell count was elevated at 31,700. The differential included 24% neutrophils, 65% lymphocytes, 9% monocytes, and 2% eosinophils. The report included the presence of abnormal lymphocytes (smudge cells). I had seen him initially in December 2014. He had further evaluation with bone marrow aspiration/biopsy on 01/05/2015. The bone marrow showed increased cellularity at 95%. Flow cytometry confirmed the presence of a population of monotypic B cells consistent with chronic lymphocytic leukemia. There was evidence of CD38 expression in excess of 30%, reported to be an adverse prognostic marker. 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 As he appeared to have early stage disease by clinical evaluation (Sellers stage 0), observation/expectant management was recommended. He has otherwise been in good health. He has no other medical illnesses. He has a history of smoking 2 packs of cigarettes daily for 30 years, but he quit smoking 4 years ago. INTERIM HISTORY: As of his follow-up visit in August 2018 his white count had increased to 142,000. His hemoglobin was down just slightly at 13.6 g. His platelet count was normal at 232,000. He appeared stable clinically, and he continued on observation/expectant management. As of 12/03/2018 there was further decrease in the hemoglobin to 11.4 g. As of his follow-up visit on 03/04/2019 his hemoglobin was down to 10.2 g with his white blood cell count elevated at 152,000. His platelet count was still normal at 201,000. At that time I had discussed the possibility of starting treatment with ibrutinib. It was deferred pending verification of insurance coverage, but he did then start treatment with ibrutinib 420 mg daily on 03/25/2019. He also was given prophylaxis with allopurinol. As of his follow-up visit on 04/08/2019 his white count had increased to 286,000 with hemoglobin mildly decreased at 10.9 g and platelet count normal at 300,000. He continued ibrutinib 420 mg daily. As of 05/06/2019 the white count had increased to 353,000 but with his hemoglobin increased to 12.3 g and his platelet count normal at 363,000. As of 06/03/2019 the hemoglobin remained stable at 12.6 g with the white blood cell count decreased to 250,000 and the platelet count stable at 320,000. He continued ibrutinib 420 mg daily. He is seen for a followup visit by Telehealth. He has been feeling a little better. His energy has improved somewhat and he has been more active. His ECOG score is 1. He has pretty good appetite. He has no fever or night sweats. He has a little sinus drainage. He has just occasional cough. He says his breathing has been better lately. He has not been having chest pain. He currently has no GI complaints. He says his diarrhea has improved. His urination has been a little weak. He says his joint pain is better. He does not complain of headache. He had just one recent episode of dizziness. He has no focal neurologic symptoms. Medications: Allopurinol 1 Tablet (of 300 mg) Oral daily, Pantoprazole Sodium 1 (40 mg) Tablet, enteric coated Oral daily Allergies: No Known Allergies. Review of Systems: Constitutional - His energy is improved and he's been feeling good. He is doing outside work. His appetite is good and weight is stable. No fever, chills, hot flashes, or night sweats. ECOG score is 1, ENMT - He has occasional sinus congestion/drainage. No mouth sores. No sore throat or difficulty swallowing, Hematologic/Lymphatic - No abnormal bruising or bleeding, Respiratory - No shortness of breath. No cough. No pleuritic pain or hemoptysis, Cardiovascular - No angina pain. No palpitations, Gastrointestinal - No nausea or vomiting. No heartburn or acid reflux. His diarrhea has improved. No constipation. No blood in the stool or black stools, Genitourinary (M) - No dysuria or hematuria. No urinary frequency. No urgency or incontinence, Musculoskeletal - No joint or bone pain, Integumentary - No skin complications, Neurologic - No headache. He had one episode of dizziness. No numbness/paresthesias or other focal neurologic symptoms, Psychiatric - No anxiety or depression. No insomnia. Physical Examination: Constitutional - He looks good generally. Lab/Imaging: CBC shows hemoglobin 12.1 g with white blood cell count 263,000 and platelet count 430,000. Comprehensive metabolic profile is unremarkable except for elevated BUN and creatinine at 21 and 1.6 mg/dL. LDH is normal at 188 U/L. Impression: 1. Patient with chronic lymphocytic leukemia, Sellers stage 0 at initial diagnosis. 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 He did not, however, have any indication for treatment, and he was initially followed on observation/expectant management. 2. By clinical evaluation he likely has some underlying COPD. 3. He has evidence of chronic kidney disease. During followup there was a gradual and progressive increase in his lymphocyte count. As of February 2019 he had become mildly anemic, and he also had associated splenomegaly. The serum iron studies had shown borderline low transferrin saturation, but overall the findings appeared to be most consistent with progression of the chronic lymphocytic leukemia to Sellers stage III. On 03/25/2019 he began treatment with ibrutinib 420 mg daily. He also started prophylaxis with allopurinol. During subsequent followup there was a significant increase in his lymphocyte count, reaching a maximum of 353,000 on 05/06/2019. However, there has been evidence of response with an increase in his hemoglobin level. He has otherwise tolerated the ibrutinib with no adverse effects. At this point the lymphocyte count remains significantly elevated, but it has shown some decline since April. Overall, he appears to be doing very well clinically. Plan: He continues treatment with ibrutinib 420 mg daily. He will be scheduled for a follow-up visit in 1 month. Signed By: Sang Pandey M.D. <<Signature on File>>
== END 2019-06-27 06:49 | disposition home or self-care (01) ==
LOC: ONCMED 06:50
PROVIDERS: Family Provider Family Medicine; PCP Family Medicine; Visit Provider Internal Medicine Medical Oncology
DX: C91.10 Chronic lymphocytic leukemia of B-cell type not having achieved remission (principal); J44.9 Chronic obstructive pulmonary disease, unspecified; N18.9 Chronic kidney disease, unspecified; Z79.899 Other long term (current) drug therapy

== ENCOUNTER 2019-08-05 11:50 | Outpatient (CLI) | payer MEDICARE, SELFPAY ==
--- NOTE | 2019-08-08 06:58 | ONC FU_ITS ---
Dr. Pandey Patient Follow-Up Note Patient: Fredy Pabon Unit #: [id number]: [id number] Dicatated By: Sang Pandey M.D.Date of Visit:August 05, 2019 Onc Med Follow-up/Prog Note Chief Complaint: Chronic lymphocytic leukemia. History of Present Illness: This is a 64 year-old man with chronic lymphocytic leukemia, Sellers stage 0 at initial diagnosis in 2014. In October 2014 he had presented to the [facility] emergency room after he had an acute episode of feeling dizzy and lightheaded. The episode had started abruptly. There was no actual vertigo with the episode. He did have nausea and sweating, and he turned pale. He also had some trouble breathing, and he felt weak and shaky. He did not have chest pain. The episode lasted only about 20 minutes. He had no further symptoms. His initial evaluation in the emergency room was unremarkable except for an elevated white blood cell count. His subsequent evaluation did include a 48 hour Holter monitor, which apparently showed no abnormality. He was seen for follow-up as an outpatient by Dr. Roy. A CBC at that time showed normal hemoglobin at 15.1 g with hematocrit 46%. The red cell indices were normal. The white blood cell count was elevated at 31,700. The differential included 24% neutrophils, 65% lymphocytes, 9% monocytes, and 2% eosinophils. The report included the presence of abnormal lymphocytes (smudge cells). I had seen him initially in December 2014. He had further evaluation with bone marrow aspiration/biopsy on 01/05/2015. The bone marrow showed increased cellularity at 95%. Flow cytometry confirmed the presence of a population of monotypic B cells consistent with chronic lymphocytic leukemia. There was evidence of CD38 expression in excess of 30%, reported to be an adverse prognostic marker. 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 As he appeared to have early stage disease by clinical evaluation (Sellers stage 0), observation/expectant management was recommended. He has otherwise been in good health. He has no other medical illnesses. He has a history of smoking 2 packs of cigarettes daily for 30 years, but he quit smoking 4 years ago. INTERIM HISTORY: As of his follow-up visit in August 2018 his white count had increased to 142,000. His hemoglobin was down just slightly at 13.6 g. His platelet count was normal at 232,000. He appeared stable clinically, and he continued on observation/expectant management. As of 12/03/2018 there was further decrease in the hemoglobin to 11.4 g. As of his follow-up visit on 03/04/2019 his hemoglobin was down to 10.2 g with his white blood cell count elevated at 152,000. His platelet count was still normal at 201,000. At that time I had discussed the possibility of starting treatment with ibrutinib. It was deferred pending verification of insurance coverage, but he did then start treatment with ibrutinib 420 mg daily on 03/25/2019. He also was given prophylaxis with allopurinol. As of his follow-up visit on 04/08/2019 his white count had increased to 286,000 with hemoglobin mildly decreased at 10.9 g and platelet count normal at 300,000. He continued ibrutinib 420 mg daily. As of 05/06/2019 the white count had increased to 353,000 but with his hemoglobin increased to 12.3 g and his platelet count normal at 363,000. As of 06/03/2019 the hemoglobin remained stable at 12.6 g with the white blood cell count decreased to 250,000 and the platelet count stable at 320,000. He continued ibrutinib 420 mg daily. As of 06/26/2019 the white count had decreased to 263,000 with hemoglobin stable 12.1 g and platelet count normal at 430,000. He is seen for a followup visit. He has been feeling pretty good generally. He has not been as active lately. He says he has had some depression associated with the weather. His appetite is good. He has no fever or night sweats. He occasionally has sinus drainage, and he does report having some cough. He has shortness of breath, but his breathing is about the same. He has had one recent episode of chest pain which lasted about 20 minutes. He has not been having nausea, and currently is not having any acid reflux symptoms. His bowels have been normal. He has had no diarrhea. He says his urine is been a little stronger, but bladder function has been okay. He has a little aching in his joints once in a while. He has some numbness on the bottoms of his feet. Medications: Allopurinol 1 Tablet (of 300 mg) Oral daily, Pantoprazole Sodium 1 (40 mg) Tablet, enteric coated Oral daily Allergies: No Known Allergies. Review of Systems: Constitutional - He has not been as active lately. Appetite is good and weight is stable. No fever or night sweats. ECOG score is 1, ENMT - He occasionally has sinus drainage. No mouth sores. No sore throat or difficulty swallowing, Hematologic/Lymphatic - No abnormal bruising or bleeding, Respiratory - He has some shortness of breath and he has some cough. No pleuritic pain or hemoptysis, Cardiovascular - He had one recent episode of chest pain lasting about 20 minutes. No palpitations, Gastrointestinal - No nausea or vomiting. He currently has no acid reflux symptoms and he has had no diarrhea or constipation. No blood in the stool or black stools, Genitourinary (M) - No dysuria or hematuria. No urinary frequency. No urgency or incontinence, Musculoskeletal - He has aching once in a while, Integumentary - No skin complications, Neurologic - No headache or dizziness. He has numbness on the bottoms of his feet, Psychiatric - He has had some depression related to the weather and to restricted activities. No insomnia. Vital Signs: Performed on August 05, 2019 11:30 Height - 71.00 in Weight - 258 lbs (HIGH) BSA - 2.35 sq.m BMI - 35.98 (HIGH) Temperature - 97.2 F (LOW) Pulse - 55 /min (LOW) Respiration - 17 /min BP - 150/70 mm(hg) (HIGH) O2 Sat - 96 % Pain - 0 Physical Examination: Constitutional - He looks good generally, Eyes - Sclerae nonicteric. Conjunctivae clear, ENMT - No lesions noted in the oral cavity, Hematologic/Lymphatic - No cervical, clavicular, or axillary adenopathy, Respiratory - Lungs sound clear with diminished air movement bilaterally, Cardiovascular - Heart rhythm is regular. There is no murmur, gallop, or rub noted, Abdomen - Soft. Liver is not enlarged. Spleen is not palpable. There is no abdominal mass or ascites noted and there is no inguinal adenopathy, Extremities - No edema, Neurologic - No focal neurologic deficits noted. Lab/Imaging: Test performed on August 01, 2019 07:22 Glucose 122 mg/dL BUN 26 mg/dL Creatinine 1.26 mg/dL Cr Clearance (Est) 93.98 mL/min Sodium 139 mmol/L Potassium 4.2 mmol/L Chloride 102 mmol/L CO2 26 mmol/L Calcium 9.3 mg/dL Protein, Total 6.9 g/dL Albumin 4.4 g/dL Bilirubin, Total 0.5 mg/dL Alkaline Phosphatase 99 IU/L AST (SGOT) 19 IU/L ALT (SGPT) 13 IU/L WBC 168.7 10^9/L RBC 4.25 10^12/L HGB 12.1 g/dL HCT 39.3 % MCV 92.5 fl MCH 28.5 pg MCHC 30.8 g/dL RDW 15.4 % Platelet Count 381 10^9/L MPV 10.3 fL Neutrophils (Gran) 16.87 10^9/L Lymphocytes 148.46 10^9/L Monocytes 1.69 10^9/L Eosinophils 1.69 10^9/L Manual Lymphocytes 88 % Manual Monocytes 1 % Manual Eosinophils 1 % Impression: 1. Patient with chronic lymphocytic leukemia, Sellers stage 0 at initial diagnosis. 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 He did not, however, have any indication for treatment, and he was initially followed on observation/expectant management. 2. By clinical evaluation he likely has some underlying COPD. 3. He has evidence of chronic kidney disease. During followup there was a gradual and progressive increase in his lymphocyte count. As of February 2019 he had become mildly anemic, and he also had associated splenomegaly. The serum iron studies had shown borderline low transferrin saturation, but overall the findings appeared to be most consistent with progression of the chronic lymphocytic leukemia to Sellers stage III. On 03/25/2019 he began treatment with ibrutinib 420 mg daily. He also started prophylaxis with allopurinol. During subsequent followup there was a significant increase in his lymphocyte count, reaching a maximum of 353,000 on 05/06/2019. However, there was evidence of response with an increase in his hemoglobin level. He has since then continued the ibrutinib at 420 mg daily. For a while he was having diarrhea, that seems to have resolved. He has otherwise tolerated it well. At this point his lymphocyte count remains significantly elevated, but it is now coming down, and his other blood counts are now stable. Plan: He continues treatment with ibrutinib 420 mg daily. He is going to stop ranitidine. He will let us know if he needs to restart medication for acid reflux. He will be scheduled for a follow-up visit in 3 month. Signed By: Sang Pandey M.D. <<Signature on File>>
== END 2019-08-05 11:51 | disposition home or self-care (01) ==
LOC: ONCMED 11:50
PROVIDERS: PCP Family Medicine; Visit Provider Internal Medicine Medical Oncology
DX: C91.10 Chronic lymphocytic leukemia of B-cell type not having achieved remission (principal); J44.9 Chronic obstructive pulmonary disease, unspecified; N18.9 Chronic kidney disease, unspecified; R16.1 Splenomegaly, not elsewhere classified; Z79.899 Other long term (current) drug therapy
CPT/HCPCS: 99214

== ENCOUNTER 2019-11-04 09:25 | Outpatient (CLI) | payer MEDICARE, SELFPAY ==
--- NOTE | 2019-11-08 10:24 | ONC FU_ITS ---
Dr. Pandey Patient Follow-Up Note Patient: Fredy Pabon Unit #: [id number]: 1955 Dicatated By: Sang Pandey M.D.Date of Visit:Nov 04, 2019 Onc Med Follow-up/Prog Note Chief Complaint: Chronic lymphocytic leukemia. History of Present Illness: This is a 64 year-old man with chronic lymphocytic leukemia, Sellers stage 0 at initial diagnosis in 2014. In October 2014 he had presented to the [place] emergency room after he had an acute episode of feeling dizzy and lightheaded. The episode had started abruptly. There was no actual vertigo with the episode. He did have nausea and sweating, and he turned pale. He also had some trouble breathing, and he felt weak and shaky. He did not have chest pain. The episode lasted only about 20 minutes. He had no further symptoms. His initial evaluation in the emergency room was unremarkable except for an elevated white blood cell count. His subsequent evaluation did include a 48 hour Holter monitor, which apparently showed no abnormality. He was seen for follow-up as an outpatient by Dr. Roy. A CBC at that time showed normal hemoglobin at 15.1 g with hematocrit 46%. The red cell indices were normal. The white blood cell count was elevated at 31,700. The differential included 24% neutrophils, 65% lymphocytes, 9% monocytes, and 2% eosinophils. The report included the presence of abnormal lymphocytes (smudge cells). I had seen him initially in December 2014. He had further evaluation with bone marrow aspiration/biopsy on 01/05/2015. The bone marrow showed increased cellularity at 95%. Flow cytometry confirmed the presence of a population of monotypic B cells consistent with chronic lymphocytic leukemia. There was evidence of CD38 expression in excess of 30%, reported to be an adverse prognostic marker. 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 As he appeared to have early stage disease by clinical evaluation (Sellers stage 0), observation/expectant management was recommended. He has otherwise been in good health. He has no other medical illnesses. He has a history of smoking 2 packs of cigarettes daily for 30 years, but he quit smoking 4 years ago. INTERIM HISTORY: As of his follow-up visit in August 2018 his white count had increased to 142,000. His hemoglobin was down just slightly at 13.6 g. His platelet count was normal at 232,000. He appeared stable clinically, and he continued on observation/expectant management. As of 12/03/2018 there was further decrease in the hemoglobin to 11.4 g. As of his follow-up visit on 03/04/2019 his hemoglobin was down to 10.2 g with his white blood cell count elevated at 152,000. His platelet count was still normal at 201,000. At that time I had discussed the possibility of starting treatment with ibrutinib. It was deferred pending verification of insurance coverage, but he did then start treatment with ibrutinib 420 mg daily on 03/25/2019. He also was given prophylaxis with allopurinol. At his follow-up visit on 04/08/2019 his white count had increased to 286,000 with hemoglobin mildly decreased at 10.9 g and platelet count normal at 300,000. He continued ibrutinib 420 mg daily. As of 05/06/2019 the white count had further increased to 353,000 but with his hemoglobin increased to 12.3 g and his platelet count normal at 363,000. During subsequent followup there was a gradual decline in his white blood cell count with his hemoglobin remaining stable. He continued ibrutinib 420 mg daily. He is seen for a followup visit. He has been feeling pretty good generally. He says his energy is fair. He has normal activity, though. ECOG score is 0. His appetite is good. He has no fever or night sweats. He has some shortness of breath with activity. He has just occasional cough. He does not complain of chest pain. He has not been having nausea. His acid reflux is adequately managed with medication. He has just occasional diarrhea. He has had some increased frequency with urination. He complains that his knees are stiff. He occasionally has dizziness. He has numbness/tingling in his feet. Medications: Allopurinol 1 Tablet (of 300 mg) Oral daily Allergies: No Known Allergies. Review of Systems: Constitutional - He has been feeling good. He has mostly normal activity. His appetite is good and weight is up about 10 pounds from last visit. No fever, night sweats, or hot flashes. ECOG score is 0, ENMT - No sinus congestion/drainage. No mouth sores. No sore throat or difficulty swallowing, Hematologic/Lymphatic - No abnormal bruising or bleeding, Respiratory - He gets short of breath with exertion. He has occasional cough. No pleuritic pain or hemoptysis, Cardiovascular - No angina pain. No palpitations, Gastrointestinal - No nausea or vomiting. No heartburn or acid reflux. He has occasional episodes of diarrhea. No constipation. No blood in the stool or black stools, Genitourinary (M) - No dysuria or hematuria. He has urinary frequency. No urgency or incontinence, Musculoskeletal - No joint or bone pain, Integumentary - No skin complications, Neurologic - No headache or dizziness. He has numbness and tingling in his feet. No other focal neurologic symptoms, Psychiatric - No anxiety or depression. No insomnia. Vital Signs: Performed on Nov 04, 2019 09:09 Height - 71.00 in Weight - 268 lbs (HIGH) BSA - 2.39 sq.m BMI - 37.38 (HIGH) Temperature - 96.9 F (LOW) Pulse - 49 /min (LOW) Respiration - 17 /min BP - 106/40 mm(hg) O2 Sat - 94 % (LOW) Pain - 0 Physical Examination: Constitutional - He looks good generally, Eyes - Sclerae nonicteric. Conjunctivae clear, ENMT - No lesions noted in the oral cavity, Hematologic/Lymphatic - No cervical, clavicular, or axillary adenopathy, Respiratory - Lungs sound clear with diminished air movement bilaterally, Cardiovascular - Heart rhythm is regular. There is no murmur, gallop, or rub noted, Abdomen - Mildly distended but soft. Liver and spleen are not enlarged. There is no abdominal mass or ascites noted and there is no inguinal adenopathy, Extremities - No edema, Neurologic - No focal neurologic deficits noted. Lab/Imaging: Test performed on Oct 30, 2019 07:39 Glucose 148 mg/dL LDH, Total 206 IU/L BUN 19 mg/dL Creatinine 1.15 mg/dL Cr Clearance (Est) 104.59 mL/min Sodium 140 mmol/L Potassium 4.1 mmol/L Chloride 105 mmol/L CO2 24 mmol/L Calcium 9.4 mg/dL Protein, Total 6.8 g/dL Albumin 4.5 g/dL Bilirubin, Total 0.3 mg/dL Alkaline Phosphatase 99 IU/L AST (SGOT) 15 IU/L ALT (SGPT) 12 IU/L WBC 99.0 10^9/L RBC 4.80 10^12/L HGB 14.1 g/dL HCT 44.5 % MCV 92.7 fl MCH 29.4 pg MCHC 31.7 g/dL RDW 16.2 % Platelet Count 367 10^9/L MPV 10.9 fL Neutrophils (Gran) 9.90 10^9/L Lymphocytes 87.12 10^9/L Monocytes 0.99 10^9/L Eosinophils 0.99 10^9/L Manual Lymphocytes 88 % Manual Monocytes 1 % Manual Eosinophils 1 % Manual Basophils 0 % Impression: 1. Patient with chronic lymphocytic leukemia, Sellers stage 0 at initial diagnosis. 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 He did not, however, have any indication for treatment, and he was initially followed on observation/expectant management. 2. By clinical evaluation he likely has some underlying COPD. 3. He has evidence of chronic kidney disease. During followup there was a gradual and progressive increase in his lymphocyte count. As of February 2019 he had become mildly anemic, and he also had associated splenomegaly. The serum iron studies had shown borderline low transferrin saturation, but overall the findings appeared to be most consistent with progression of the chronic lymphocytic leukemia to Sellers stage III. On 03/25/2019 he began treatment with ibrutinib 420 mg daily. He also started prophylaxis with allopurinol. During subsequent followup there was a significant increase in his lymphocyte count, reaching a maximum of 353,000 on 05/06/2019. However, there was evidence of response with an increase in his hemoglobin level. He has since then continued the ibrutinib at 420 mg daily. For a while he was having diarrhea, but that has improved significantly. He has otherwise tolerated it well. His lymphocyte count now is decreasing. His hemoglobin has come up to normal range, and his platelet count also remains normal. Overall, he appears to be showing a very good response to the treatment, and at this point he is doing very well clinically. Plan: He continues ibrutinib 420 mg daily. I will see him again in 3 months. Signed By: Sang Pandey M.D. <<Signature on File>>
== END 2019-11-04 09:26 | disposition home or self-care (01) ==
LOC: ONCMED 09:25
PROVIDERS: PCP Family Medicine; Visit Provider Internal Medicine Medical Oncology
DX: C91.10 Chronic lymphocytic leukemia of B-cell type not having achieved remission (principal); N18.9 Chronic kidney disease, unspecified; R16.1 Splenomegaly, not elsewhere classified; Z87.891 Personal history of nicotine dependence; Z79.899 Other long term (current) drug therapy
CPT/HCPCS: 99214

== ENCOUNTER 2020-02-03 08:52 | Outpatient (CLI) | payer MEDICARE, SELFPAY ==
--- NOTE | 2020-02-03 14:58 | ONC FU_ITS ---
Dr. Pandey Patient Follow-Up Note Patient: Fredy Pabon Unit #: [id number]: 1955 Dicatated By: Sang Pandey M.D.Date of Visit:Feb 03, 2020 Onc Med Follow-up/Prog Note Chief Complaint: Chronic lymphocytic leukemia. History of Present Illness: This is a 65 year-old man with chronic lymphocytic leukemia, Sellers stage 0 at initial diagnosis in 2014. In October 2014 he had presented to the [place] emergency room after he had an acute episode of feeling dizzy and lightheaded. The episode had started abruptly. There was no actual vertigo with the episode. He did have nausea and sweating, and he turned pale. He also had some trouble breathing, and he felt weak and shaky. He did not have chest pain. The episode lasted only about 20 minutes. He had no further symptoms. His initial evaluation in the emergency room was unremarkable except for an elevated white blood cell count. His subsequent evaluation did include a 48 hour Holter monitor, which apparently showed no abnormality. He was seen for follow-up as an outpatient by Dr. Roy. A CBC at that time showed normal hemoglobin at 15.1 g with hematocrit 46%. The red cell indices were normal. The white blood cell count was elevated at 31,700. The differential included 24% neutrophils, 65% lymphocytes, 9% monocytes, and 2% eosinophils. The report included the presence of abnormal lymphocytes (smudge cells). I had seen him initially in December 2014. He had further evaluation with bone marrow aspiration/biopsy on 01/05/2015. The bone marrow showed increased cellularity at 95%. Flow cytometry confirmed the presence of a population of monotypic B cells consistent with chronic lymphocytic leukemia. There was evidence of CD38 expression in excess of 30%, reported to be an adverse prognostic marker. 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 As he appeared to have early stage disease by clinical evaluation (Sellers stage 0), observation/expectant management was recommended. He has otherwise been in good health. He has no other medical illnesses. He has a history of smoking 2 packs of cigarettes daily for 30 years, but he quit smoking 4 years ago. INTERIM HISTORY: As of his follow-up visit in August 2018 his white count had increased to 142,000. His hemoglobin was down just slightly at 13.6 g. His platelet count was normal at 232,000. He appeared stable clinically, and he continued on observation/expectant management. As of 12/03/2018 there was further decrease in the hemoglobin to 11.4 g. As of his follow-up visit on 03/04/2019 his hemoglobin was down to 10.2 g with his white blood cell count elevated at 152,000. His platelet count was still normal at 201,000. At that time I had discussed the possibility of starting treatment with ibrutinib. It was deferred pending verification of insurance coverage, but he did then start treatment with ibrutinib 420 mg daily on 03/25/2019. He also was given prophylaxis with allopurinol. At his follow-up visit on 04/08/2019 his white count had increased to 286,000 with hemoglobin mildly decreased at 10.9 g and platelet count normal at 300,000. He continued ibrutinib 420 mg daily. As of 05/06/2019 the white count had further increased to 353,000 but with his hemoglobin increased to 12.3 g and his platelet count normal at 363,000. During subsequent followup there was a gradual decline in his white blood cell count with his hemoglobin remaining stable. He continued ibrutinib 420 mg daily. He is seen for a followup visit. He has been feeling good generally. He does complain that he has been having some difficulty with vision, and he has scheduled to have cataract surgery on the right eye tomorrow. The left eye apparently will need to be done as well. His energy is about the same. He says he gets by. He is doing light work. Appetite is good. He is not had fever. He occasionally has sweating at night. He has some shortness of breath, and he occasionally has coughing spells. He does not complain of chest pain. He has occasional heartburn. He sometimes has loose stools, he has no diarrhea. Bladder function has been okay, though he does tend to have frequent urination. He has pain in both knees. He recently had some transient swelling in his left hand. He has no other joint or bone pain. He sometimes has numbness in his right foot and he occasionally has numbness in his left hand. Medications: Allopurinol 1 Tablet (of 300 mg) Oral daily, Imbruvica 1 (420 mg) Tablet Oral daily Allergies: No Known Allergies. Review of Systems: Constitutional - His energy is the same. He is doing light work. Appetite is good and weight is stable. No fever or night sweats. ECOG score is 1, ENMT - No sinus congestion/drainage. No mouth sores. No sore throat or difficulty swallowing, Hematologic/Lymphatic - No abnormal bruising or bleeding, Respiratory - He has some shortness of breath. He has occasional coughing spells. No pleuritic pain or hemoptysis, Cardiovascular - No angina pain. No palpitations, Gastrointestinal - No nausea or vomiting. He has occasional acid reflux. He has just occasional loose stools and no diarrhea. No blood in the stool or black stools, Genitourinary (M) - No dysuria or hematuria. He has some urinary frequency. No urgency or incontinence, Musculoskeletal - He has pain in both knees. He recently had some transient swelling in his left hand, Integumentary - No skin rash, Neurologic - No headache or dizziness. He sometimes has numbness in his right foot and occasionally in his left hand. No other focal neurologic symptoms, Psychiatric - No anxiety or depression. No insomnia. Vital Signs: Performed on Feb 03, 2020 14:51 Height - 71.00 in Weight - 268 lbs BSA - 2.39 sq.m BMI - 37.38 (HIGH) Temperature - 98.6 F Pulse - 52 /min (LOW) Respiration - 18 /min BP - 146/76 mm(hg) (HIGH) O2 Sat - 96 % Pain - 0 Physical Examination: Constitutional - He looks good generally, Eyes - Sclerae nonicteric. Conjunctivae clear, ENMT - No lesions noted in the oral cavity, Hematologic/Lymphatic - No cervical, clavicular, or axillary adenopathy, Respiratory - Lungs sound clear with diminished air movement bilaterally, Cardiovascular - Heart rhythm is regular with a badycardia. There is no murmur, gallop, or rub noted, Abdomen - Mildly distended but soft. Liver and spleen are not enlarged. There is no abdominal mass or ascites noted and there is no inguinal adenopathy, Extremities - No edema, Neurologic - No focal neurologic deficits noted. Lab/Imaging: CBC shows hemoglobin normal at 15.2 g with hematocrit 48.1%. The white blood cell count is 62,500 with absolute neutrophil count 10,600. The platelet count is slightly elevated at 453,000. Comprehensive metabolic profile shows borderline renal function with BUN 18 and creatinine 1.37 mg/dL. Bilirubin and liver enzymes are normal. LDH is normal at 141 U/L. Impression: 1. Patient with chronic lymphocytic leukemia, Sellers stage 0 at initial diagnosis. 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 He did not, however, have any indication for treatment, and he was initially followed on observation/expectant management. 2. By clinical evaluation he likely has some underlying COPD. 3. He has evidence of chronic kidney disease. During followup there was a gradual and progressive increase in his lymphocyte count. As of February 2019 he had become mildly anemic, and he also had associated splenomegaly. The serum iron studies had shown borderline low transferrin saturation, but overall the findings appeared to be most consistent with progression of the chronic lymphocytic leukemia to Sellers stage III. On 03/25/2019 he began treatment with ibrutinib 420 mg daily. He also started prophylaxis with allopurinol. Initially there was a significant increase in his lymphocyte count, reaching a maximum of 353,000 on 05/06/2019. However, there was evidence of response with an increase in his hemoglobin level. He then continued the ibrutinib at 420 mg daily. For a while he was having diarrhea, but that did improve. He has otherwise tolerated it well. During follow-up continued to show gradual improvement with declining lymphocyte count and further improvement in the anemia. Overall, he has been doing very well clinically. Plan: He continues ibrutinib 420 mg daily. I will see him again in 3 months. Signed By: Sang Pandey M.D. <<Signature on File>>
== END 2020-02-03 08:53 | disposition home or self-care (01) ==
LOC: ONCMED 08:53
PROVIDERS: PCP Family Medicine; Visit Provider Internal Medicine Medical Oncology
DX: C91.10 Chronic lymphocytic leukemia of B-cell type not having achieved remission (principal); N18.9 Chronic kidney disease, unspecified; J44.9 Chronic obstructive pulmonary disease, unspecified; F17.210 Nicotine dependence, cigarettes, uncomplicated; Z79.899 Other long term (current) drug therapy
CPT/HCPCS: 99214

== ENCOUNTER 2020-06-01 08:39 | Outpatient (CLI) | payer MEDICARE, SELFPAY ==
--- NOTE | 2020-06-01 09:38 | ONC FU_ITS ---
Dr. Pandey Patient Follow-Up Note Patient: Fredy Pabon Unit #: [id number]: 1955 Dicatated By: Sang Pandey M.D.Date of Visit:Jun 01, 2020 Onc Med Follow-up/Prog Note Chief Complaint: Chronic lymphocytic leukemia. History of Present Illness: This is a 65 year-old man with chronic lymphocytic leukemia, Sellers stage 0 at initial diagnosis in 2014. In October 2014 he had presented to the [facility] emergency room after he had an acute episode of feeling dizzy and lightheaded. The episode had started abruptly. There was no actual vertigo with the episode. He did have nausea and sweating, and he turned pale. He also had some trouble breathing, and he felt weak and shaky. He did not have chest pain. The episode lasted only about 20 minutes. He had no further symptoms. His initial evaluation in the emergency room was unremarkable except for an elevated white blood cell count. His subsequent evaluation did include a 48 hour Holter monitor, which apparently showed no abnormality. He was seen for follow-up as an outpatient by Dr. Roy. A CBC at that time showed normal hemoglobin at 15.1 g with hematocrit 46%. The red cell indices were normal. The white blood cell count was elevated at 31,700. The differential included 24% neutrophils, 65% lymphocytes, 9% monocytes, and 2% eosinophils. The report included the presence of abnormal lymphocytes (smudge cells). I had seen him initially in December 2014. He had further evaluation with bone marrow aspiration/biopsy on 01/05/2015. The bone marrow showed increased cellularity at 95%. Flow cytometry confirmed the presence of a population of monotypic B cells consistent with chronic lymphocytic leukemia. There was evidence of CD38 expression in excess of 30%, reported to be an adverse prognostic marker. 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 As he appeared to have early stage disease by clinical evaluation (Sellers stage 0), observation/expectant management was recommended. As of his follow-up visit in August 2018 his white count had increased to 142,000. His hemoglobin was down just slightly at 13.6 g. His platelet count was normal at 232,000. He appeared stable clinically, and he continued on observation/expectant management. As of 12/03/2018 there was further decrease in the hemoglobin to 11.4 g. As of his follow-up visit on 03/04/2019 his hemoglobin was down to 10.2 g with his white blood cell count elevated at 152,000. His platelet count was still normal at 201,000. At that time I had discussed the possibility of starting treatment with ibrutinib. It was deferred pending verification of insurance coverage, but he did then start treatment with ibrutinib 420 mg daily on 03/25/2019. He also was given prophylaxis with allopurinol. At his follow-up visit on 04/08/2019 his white count had increased to 286,000 with hemoglobin mildly decreased at 10.9 g and platelet count normal at 300,000. He continued ibrutinib 420 mg daily. As of 05/06/2019 the white count had further increased to 353,000 but with his hemoglobin increased to 12.3 g and his platelet count normal at 363,000. During subsequent followup there was a gradual decline in his white blood cell count with his hemoglobin remaining stable. He continued ibrutinib 420 mg daily. He has otherwise been in good health. He has no other medical illnesses. He has a history of smoking 2 packs of cigarettes daily for 30 years, but he quit smoking 4 years ago. INTERIM HISTORY: He has been feeling pretty good generally. He has pretty good energy, he is still doing light work at home. ECOG score is 1. His appetite was down about a month ago, but it is better now. His weight is stable. He has no fever or night sweats. He continues to have some shortness of breath with more strenuous activity. He has just occasional cough. He does not complain of chest pain. He has no GI or complaints. In particular, he has not had any diarrhea. He has some joint pain, mainly in the knees and hips. It is not getting any worse. He does not complain of headache. He has occasional dizziness. He occasionally has numbness in his feet. He is seen for a followup visit. Medications: Allopurinol 1 Tablet (of 300 mg) Oral daily, Imbruvica 1 (420 mg) Tablet Oral daily Allergies: No Known Allergies. Vital Signs: Performed on Jun 01, 2020 08:44 Height - 71.00 in Weight - 268 lbs BSA - 2.39 sq.m BMI - 37.38 (HIGH) Temperature - 97.0 F (LOW) Pulse - 62 /min Respiration - 18 /min BP - 130/70 mm(hg) O2 Sat - 94 % (LOW) Pain - 0 Physical Examination: Constitutional - He looks good generally, Eyes - Sclerae nonicteric. Conjunctivae clear, ENMT - No lesions noted in the oral cavity, Hematologic/Lymphatic - No cervical, clavicular, or axillary adenopathy, Respiratory - Lungs sound clear with diminished air movement bilaterally, Cardiovascular - Heart rhythm is regular. There is no murmur, gallop, or rub noted, Abdomen - Mildly distended but soft. Liver and spleen are not enlarged. There is no abdominal mass or ascites noted and there is no inguinal adenopathy, Extremities - No edema, Neurologic - No focal neurologic deficits noted. Lab/Imaging: Test performed on May 28, 2020 12:51 Glucose 104 mg/dL LDH, Total 155 IU/L BUN 14 mg/dL Creatinine 1.09 mg/dL Cr Clearance (Est) 113.08 mL/min Sodium 137 mmol/L Potassium 4.3 mmol/L Chloride 102 mmol/L CO2 23 mmol/L Calcium 9.4 mg/dL Protein, Total 6.6 g/dL Albumin 4.0 g/dL Bilirubin, Total 0.7 mg/dL Alkaline Phosphatase 109 IU/L AST (SGOT) 14 IU/L ALT (SGPT) 12 IU/L WBC 33.3 10^9/L RBC 5.00 10^12/L HGB 14.4 g/dL HCT 46.0 % MCV 92.0 fl MCH 28.8 pg MCHC 31.3 g/dL RDW 16.6 % Platelet Count 373 10^9/L MPV 10.8 fL Neutrophils (Gran) 5.33 10^9/L Lymphocytes 24.31 10^9/L Monocytes 1.33 10^9/L Eosinophils 1.33 10^9/L Manual Lymphocytes 73 % Manual Monocytes 3 % Manual Eosinophils 4 % Manual Basophils 4 % Problem List: 1. Chronic lymphocytic leukemia, Sellers stage 0 at initial diagnosis in December 2014. 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 He did not, however, have any indication for treatment, and he was initially followed on observation/expectant management. 2. COPD. 3. Chronic kidney disease. Problems Addressed with this Encounter and Plan: Patient with chronic lymphocytic leukemia, Sellers stage 0 at initial diagnosis. 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 He did not, however, have any indication for treatment, and he was initially followed on observation/expectant management. During followup there was a gradual and progressive increase in his lymphocyte count. As of February 2019 he had become mildly anemic, and he also had associated splenomegaly. The serum iron studies had shown borderline low transferrin saturation, but overall the findings appeared to be most consistent with progression of the chronic lymphocytic leukemia to Sellers stage III. On 03/25/2019 he began treatment with ibrutinib 420 mg daily. He also started prophylaxis with allopurinol. Initially there was a significant increase in his lymphocyte count, reaching a maximum of 353,000 on 05/06/2019. However, there was evidence of response with an increase in his hemoglobin level. He then continued the ibrutinib at 420 mg daily. For a while he was having diarrhea, but that did improve. He has otherwise tolerated it well. During follow-up he continued to show gradual improvement with declining lymphocyte count and further improvement in the anemia. At this point he appears to be doing very well clinically. His white blood cell count continues to decline gradually with his hemoglobin/hematocrit levels and platelet count abnormal levels. He has been tolerating treatment with no adverse effects. He continues ibrutinib 420 mg daily. I will see him again in 3 months. Signed By: Sang Pandey M.D. <<Signature on File>>
== END 2020-06-01 08:40 | disposition home or self-care (01) ==
LOC: ONCMED 08:40
PROVIDERS: PCP Family Medicine; Visit Provider Internal Medicine Medical Oncology
DX: C91.10 Chronic lymphocytic leukemia of B-cell type not having achieved remission (principal); J44.9 Chronic obstructive pulmonary disease, unspecified; N18.9 Chronic kidney disease, unspecified; Z79.899 Other long term (current) drug therapy
CPT/HCPCS: 99214

== ENCOUNTER 2020-08-31 13:00 | Outpatient (CLI) | payer MEDICARE, SELFPAY ==
--- NOTE | 2020-09-03 07:05 | ONC FU_ITS ---
Dr. Pandey Patient Follow-Up Note Patient: Fredy Pabon Unit #: [id number]: 1955 Dicatated By: Sang Pandey M.D.Date of Visit:Aug 31, 2020 Onc Med Follow-up/Prog Note Chief Complaint: Chronic lymphocytic leukemia. History of Present Illness: This is a 65 year-old man with chronic lymphocytic leukemia, Sellers stage 0 at initial diagnosis in 2014. In October 2014 he had presented to the [facility] emergency room after he had an acute episode of feeling dizzy and lightheaded. The episode had started abruptly. There was no actual vertigo with the episode. He did have nausea and sweating, and he turned pale. He also had some trouble breathing, and he felt weak and shaky. He did not have chest pain. The episode lasted only about 20 minutes. He had no further symptoms. His initial evaluation in the emergency room was unremarkable except for an elevated white blood cell count. His subsequent evaluation did include a 48 hour Holter monitor, which apparently showed no abnormality. He was seen for follow-up as an outpatient by Dr. Roy. A CBC at that time showed normal hemoglobin at 15.1 g with hematocrit 46%. The red cell indices were normal. The white blood cell count was elevated at 31,700. The differential included 24% neutrophils, 65% lymphocytes, 9% monocytes, and 2% eosinophils. The report included the presence of abnormal lymphocytes (smudge cells). I had seen him initially in December 2014. He had further evaluation with bone marrow aspiration/biopsy on 01/05/2015. The bone marrow showed increased cellularity at 95%. Flow cytometry confirmed the presence of a population of monotypic B cells consistent with chronic lymphocytic leukemia. There was evidence of CD38 expression in excess of 30%, reported to be an adverse prognostic marker. 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 As he appeared to have early stage disease by clinical evaluation (Sellers stage 0), observation/expectant management was recommended. As of his follow-up visit in August 2018 his white count had increased to 142,000. His hemoglobin was down just slightly at 13.6 g. His platelet count was normal at 232,000. He appeared stable clinically, and he continued on observation/expectant management. As of 12/03/2018 there was further decrease in the hemoglobin to 11.4 g. As of his follow-up visit on 03/04/2019 his hemoglobin was down to 10.2 g with his white blood cell count elevated at 152,000. His platelet count was still normal at 201,000. At that time I had discussed the possibility of starting treatment with ibrutinib. It was deferred pending verification of insurance coverage, but he did then start treatment with ibrutinib 420 mg daily on 03/25/2019. He also was given prophylaxis with allopurinol. At his follow-up visit on 04/08/2019 his white count had increased to 286,000 with hemoglobin mildly decreased at 10.9 g and platelet count normal at 300,000. He continued ibrutinib 420 mg daily. As of 05/06/2019 the white count had further increased to 353,000 but with his hemoglobin increased to 12.3 g and his platelet count normal at 363,000. During subsequent followup there was a gradual decline in his white blood cell count with his hemoglobin remaining stable. He continued ibrutinib 420 mg daily. He has otherwise been in good health. He has no other medical illnesses. He has a history of smoking 2 packs of cigarettes daily for 30 years, but he quit smoking 4 years ago. INTERIM HISTORY: He is seen for a followup visit. He has been feeling good generally. His energy has been okay. He has normal activity. Appetite also is okay. His weight is stable. He has no fever or night sweats. Has occasional sinus drainage and cough. He has some mild exertional dyspnea. He has no resting dyspnea or chest pain. He says he has had a couple of rounds of diarrhea. His bowels are okay now. He has no other GI complaints. Bladder function has been okay, but he has noticed that his urine is darker. He has had some pain in his right knee, but no other joint or bone pain. He does not complain of headache or dizziness. He has no focal neurologic symptoms. He has not had any abnormal bruising or bleeding. Medications: Allopurinol 1 Tablet (of 300 mg) Oral daily, Imbruvica 1 (420 mg) Tablet Oral daily Allergies: No Known Allergies. Vital Signs: Performed on Aug 31, 2020 12:54 Height - 71.00 in Weight - 265 lbs (LOW) BSA - 2.38 sq.m BMI - 36.96 (HIGH) Temperature - 97.0 F (LOW) Pulse - 55 /min (LOW) Respiration - 18 /min BP - 110/58 mm(hg) O2 Sat - 93 % (LOW) Pain - 0 Physical Examination: Constitutional - He looks good generally, Eyes - Sclerae nonicteric. Conjunctivae clear, ENMT - No lesions noted in the oral cavity, Hematologic/Lymphatic - No cervical, clavicular, or axillary adenopathy, Respiratory - Lungs sound clear with diminished air movement bilaterally, Cardiovascular - Heart rhythm is regular. There is no murmur, gallop, or rub noted, Abdomen - Mildly distended but soft. Liver and spleen are not enlarged. There is no abdominal mass or ascites noted and there is no inguinal adenopathy, Extremities - No edema, Neurologic - No focal neurologic deficits noted. Lab/Imaging: Test performed on Aug 28, 2020 06:16 Glucose 107 mg/dL LDH, Total 139 IU/L BUN 17 mg/dL Creatinine 1.17 mg/dL Cr Clearance (Est) 105.34 mL/min Sodium 141 mmol/L Potassium 3.7 mmol/L Chloride 105 mmol/L CO2 23 mmol/L Calcium 9.6 mg/dL Protein, Total 7.0 g/dL Albumin 4.4 g/dL Globulin 2.6 g/dL Bilirubin, Total 0.7 mg/dL Alkaline Phosphatase 98 IU/L AST (SGOT) 14 IU/L ALT (SGPT) 12 IU/L Hemoglobin A1C 5.2 % WBC 40.6 10^9/L RBC 5.30 10^12/L HGB 15.8 g/dL HCT 48.1 % MCV 90.8 fl MCH 29.8 pg MCHC 32.8 g/dL RDW 13.6 % Platelet Count 380 10^9/L MPV 11.0 fL Neutrophils (Gran) 8079 10^9/L Lymphocytes 69786 10^9/L Monocytes 3938 10^9/L Eosinophils 203 10^9/L Basophils 81 10^9/L Manual Lymphocytes 69.7 % Manual Monocytes 9.7 % Manual Eosinophils 0.5 % Manual Basophils 0.2 % Problem List: 1. Chronic lymphocytic leukemia, Sellers stage 0 at initial diagnosis in December 2014. 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 He did not, however, have any indication for treatment, and he was initially followed on observation/expectant management. 2. COPD. 3. Chronic kidney disease. Problems Addressed with this Encounter and Plan: Patient with chronic lymphocytic leukemia, Sellers stage 0 at initial diagnosis. 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 He did not, however, have any indication for treatment, and he was initially followed on observation/expectant management. During followup there was a gradual and progressive increase in his lymphocyte count. As of February 2019 he had become mildly anemic, and he also had associated splenomegaly. The serum iron studies had shown borderline low transferrin saturation, but overall the findings appeared to be most consistent with progression of the chronic lymphocytic leukemia to Sellers stage III. On 03/25/2019 he began treatment with ibrutinib 420 mg daily. He also started prophylaxis with allopurinol. Initially there was a significant increase in his lymphocyte count, reaching a maximum of 353,000 on 05/06/2019. However, there was evidence of response with an increase in his hemoglobin level. He then continued the ibrutinib at 420 mg daily. For a while he was having diarrhea, but that did improve. He has otherwise tolerated it well. During follow-up he continued to show gradual improvement with declining lymphocyte count and further improvement in the anemia. During follow-up he has been doing well clinically. He has continued to have a mild lymphocytosis, and since his last visit it actually did go up a little. However, he continues to have normal hemoglobin/hematocrit levels and normal platelet count and there has been no other evidence of disease progression. As such, he continues ibrutinib 420 mg daily. I will see him again in 3 months. Signed By: Sang Pandey M.D. <<Signature on File>>
== END 2020-08-31 13:01 | disposition home or self-care (01) ==
PROVIDERS: PCP Family Medicine; Visit Provider Internal Medicine Medical Oncology
DX: C91.10 Chronic lymphocytic leukemia of B-cell type not having achieved remission (principal); J44.9 Chronic obstructive pulmonary disease, unspecified; N18.9 Chronic kidney disease, unspecified; Z79.899 Other long term (current) drug therapy
CPT/HCPCS: 99214

== ENCOUNTER 2020-12-07 09:07 | Outpatient (CLI) | payer MEDICARE, SELFPAY ==
--- NOTE | 2020-12-07 09:14 | ONC FU_ITS ---
Dr. Pandey Patient Follow-Up Note Patient: Fredy Pabon Unit #: [id number]: 1955 Dicatated By: Sang Pandey M.D.Date of Visit:Dec 07, 2020 Onc Med Follow-up/Prog Note Chief Complaint: Chronic lymphocytic leukemia. History of Present Illness: This is a 65 year-old man with chronic lymphocytic leukemia, Sellers stage 0 at initial diagnosis in 2014. In October 2014 he had presented to the [place] emergency room after he had an acute episode of feeling dizzy and lightheaded. The episode had started abruptly. There was no actual vertigo with the episode. He did have nausea and sweating, and he turned pale. He also had some trouble breathing, and he felt weak and shaky. He did not have chest pain. The episode lasted only about 20 minutes. He had no further symptoms. His initial evaluation in the emergency room was unremarkable except for an elevated white blood cell count. His subsequent evaluation did include a 48 hour Holter monitor, which apparently showed no abnormality. He was seen for follow-up as an outpatient by Dr. Roy. A CBC at that time showed normal hemoglobin at 15.1 g with hematocrit 46%. The red cell indices were normal. The white blood cell count was elevated at 31,700. The differential included 24% neutrophils, 65% lymphocytes, 9% monocytes, and 2% eosinophils. The report included the presence of abnormal lymphocytes (smudge cells). I had seen him initially in December 2014. He had further evaluation with bone marrow aspiration/biopsy on 01/05/2015. The bone marrow showed increased cellularity at 95%. Flow cytometry confirmed the presence of a population of monotypic B cells consistent with chronic lymphocytic leukemia. There was evidence of CD38 expression in excess of 30%, reported to be an adverse prognostic marker. 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 As he appeared to have early stage disease by clinical evaluation (Sellers stage 0), observation/expectant management was recommended. As of his follow-up visit in August 2018 his white count had increased to 142,000. His hemoglobin was down just slightly at 13.6 g. His platelet count was normal at 232,000. He appeared stable clinically, and he continued on observation/expectant management. As of 12/03/2018 there was further decrease in the hemoglobin to 11.4 g. As of his follow-up visit on 03/04/2019 his hemoglobin was down to 10.2 g with his white blood cell count elevated at 152,000. His platelet count was still normal at 201,000. At that time I had discussed the possibility of starting treatment with ibrutinib. It was deferred pending verification of insurance coverage, but he did then start treatment with ibrutinib 420 mg daily on 03/25/2019. He also was given prophylaxis with allopurinol. At his follow-up visit on 04/08/2019 his white count had increased to 286,000 with hemoglobin mildly decreased at 10.9 g and platelet count normal at 300,000. He continued ibrutinib 420 mg daily. As of 05/06/2019 the white count had further increased to 353,000 but with his hemoglobin increased to 12.3 g and his platelet count normal at 363,000. During subsequent followup there was a gradual decline in his white blood cell count with his hemoglobin remaining stable. He continued ibrutinib 420 mg daily. He has otherwise been in good health. He has no other medical illnesses. He has a history of smoking 2 packs of cigarettes daily for 30 years, but he quit smoking 4 years ago. INTERIM HISTORY: He is seen for a follow-up visit. He has been feeling pretty good generally. With the hot weather he has slowed down, and there has been some decrease in his activity. His ECOG score is 1. His appetite is pretty good. He has no fever or night sweats. He has not had sore mouth or throat. He has just occasional cough. He does not complain of shortness of breath or chest pain. He has no GI complaints other than occasional acid reflux. His bowel function lately has been better. He has not been having any diarrhea. He complains that his bladder is sometimes weak, but lately it has been pretty good. He has some stiffness in his joints, but no significant joint or bone pain. He does not complain of headache. He has just occasional dizziness, and he also occasionally has numbness in his feet. He has some bruising, but no worse. He has had no other bleeding manifestations. Medications: Allopurinol 1 Tablet (of 300 mg) Oral daily, Imbruvica 1 (420 mg) Tablet Oral daily Allergies: No Known Allergies. Vital Signs: Weight is 260 pounds. Blood pressure 122/74, pulse 53, respirations 18, temp 98.1 degrees, oxygen saturation 96%. Physical Examination: Constitutional - He looks good generally, Eyes - Sclerae nonicteric. Conjunctivae clear, ENMT - No lesions noted in the oral cavity, Hematologic/Lymphatic - No cervical, clavicular, or axillary adenopathy, Respiratory - Lungs sound clear with diminished air movement bilaterally, Cardiovascular - Heart rhythm is regular with a bradycardia. There is no murmur, gallop, or rub noted, Abdomen - Mildly distended and tympanic. Liver and spleen are not enlarged. There is no abdominal mass or ascites noted and there is no inguinal adenopathy, Extremities - No edema, Neurologic - No focal neurologic deficits noted. Lab/Imaging: Test performed on Dec 02, 2020 08:04 Sodium 138 mmol/L Potassium 4.1 mmol/L Chloride 103 mmol/L CO2 25 mmol/L Anion Gap 10 BUN 18 mg/dL Creatinine 1.30 mg/dL Cr Clearance (Est) 93.75 mL/min Glucose 121 mg/dL Calcium 9.4 mg/dL Protein, Total 7.0 g/dL Albumin 4.5 g/dL Bilirubin, Total 0.5 mg/dL ALT (SGPT) 11 Units/L AST (SGOT) 14 Units/L Alkaline Phosphatase 108 International Units/L WBC 30.6 10^3/uL RBC 5.13 10^6/uL HGB 15.2 g/dL HCT 47.7 % MCV 93.0 fl MCH 29.6 pg MCHC 31.9 g/dL RDW 15.1 % Platelet Count 348 10^3/uL MPV 11.0 fl Neutrophils 7.34 10^3/uL Lymphocytes 16.83 10^3/uL Monocytes 1.53 10^3/uL Eosinophils 0.61 10^3/uL Neutrophil % 24 % Lymphocyte % 55 % Monocyte % 5 % Eosinophil % 2 % Problem List: 1. Chronic lymphocytic leukemia, Sellers stage 0 at initial diagnosis in December 2014. 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 He did not, however, have any indication for treatment, and he was initially followed on observation/expectant management. 2. COPD. 3. Chronic kidney disease. Problems Addressed with this Encounter and Plan: Patient with chronic lymphocytic leukemia, Sellers stage 0 at initial diagnosis. 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 He did not, however, have any indication for treatment, and he was initially followed on observation/expectant management. During followup there was a gradual and progressive increase in his lymphocyte count. As of February 2019 he had become mildly anemic, and he also had associated splenomegaly. The serum iron studies had shown borderline low transferrin saturation, but overall the findings appeared to be most consistent with progression of the chronic lymphocytic leukemia to Sellers stage III. On 03/25/2019 he began treatment with ibrutinib 420 mg daily. He also started prophylaxis with allopurinol. Initially there was a significant increase in his lymphocyte count, reaching a maximum of 353,000 on 05/06/2019. However, there was evidence of response with an increase in his hemoglobin level. He then continued the ibrutinib at 420 mg daily. For a while he was having diarrhea, but that did improve. He has otherwise tolerated it well. During follow-up he continued to show gradual improvement with declining lymphocyte count and further improvement in the anemia. During follow-up he has been doing well clinically. He still has a mild lymphocytosis, but it has continued to show gradual decline. He has been able to tolerate treatment with no adverse effects, and he will continue ibrutinib at 420 mg daily. I will see him again in 3 months. Signed By: Sang Pandey M.D. <<Signature on File>>
== END 2020-12-07 09:08 | disposition home or self-care (01) ==
LOC: ONCMED 09:07
PROVIDERS: PCP Family Medicine; Visit Provider Internal Medicine Medical Oncology
DX: C91.10 Chronic lymphocytic leukemia of B-cell type not having achieved remission (principal); J44.9 Chronic obstructive pulmonary disease, unspecified; N18.9 Chronic kidney disease, unspecified; D64.9 Anemia, unspecified; R16.1 Splenomegaly, not elsewhere classified; Z79.899 Other long term (current) drug therapy
CPT/HCPCS: 99214

== ENCOUNTER 2021-03-08 08:37 | Outpatient (CLI) | payer MEDICARE, SELFPAY ==
[2021-03-08 09:11] LABS: Hematocrit 47.5 % (42.0-52.0); Hemoglobin 15.4 g/dL (11.7-16.6); Mean Corpuscular HGB Conc 32.4 g/dL (30.0-36.0); Mean Corpuscular Volume 92.6 fl (80-94); Mean Platelet Volume 11.5 fL (7.4-10.4); Platelet Count 373 10^3/cmm (130-400); Red Blood Count 5.13 10^6/uL (4.1-5.3); Red Cell Distribution Width 14.2 % (12.1-15.1)
[2021-03-08 09:17] LABS: Alanine Aminotransferase 11 U/L (0-41); Albumin Level 4.4 g/dL (3.5-5.2); Alkaline Phosphatase 104 IU/L (40-130); Anion Gap 17.5 (5-19); Aspartate Amino Transferase 13 U/L (0-40); Blood Urea Nitrogen 14 mg/dL (8-23); Calcium 8.7 mg/dL (8.5-10.5); Carbon Dioxide 21 mmol/L (22-29); Chloride 104 mmol/L (98-107); Globulin 2.3 g/dL (1.3-4.6); Glomerular Filtration Rate 60.2 mL/min (90-130); Glucose 97 mg/dL (65-115); Osmolality Calculated 286 mOsm/kg (285-295); Potassium 4.5 mmol/L (3.5-5.1); Sodium 138 mmol/L (136-145); Total Bilirubin 0.6 mg/dL (0.15-1.2); Total Protein 6.7 g/dL (6.6-8.7)
[2021-03-08 09:41] LABS: Absolute Segmented Neutrophil 11.5 10/cmm (1.6-7.1); LAB Peripheral Smear Sent for Review; Segmented Neutrophils 27 %; Slide Review Slide Review Perform; Total Cells Counted 100 (0-100); White Blood Count 42.7 10^3/uL (4.0-10.0)
[2021-03-08 09:42] LABS: Absolute Eosinophils 0.4 10^3/cmm (0.0-0.7); Absolute Neutrophil 11.5 10^3/cmm (1.4-6.5); Eosinophils 1 %; Lymphocytes 7 %; Lymphocytes Absolute 29.9 10^3/cmm (1.2-3.4); Monocytes Absolute 0.9 10^3/cmm (0.1-0.6); Platelet Estimate Normal (Normal)
--- NOTE | 2021-03-08 18:53 | ONC FU_ITS ---
Dr. Pandey Patient Follow-Up Note Patient: Fredy Pabon Unit #: [id number]: 1955 Dicatated By: Sang Pandey M.D.Date of Visit:Mar 08, 2021 Onc Med Follow-up/Prog Note Chief Complaint: Chronic lymphocytic leukemia. History of Present Illness: This is a 66 year-old man with chronic lymphocytic leukemia, Sellers stage 0 at initial diagnosis in 2014. In October 2014 he had presented to the [place] emergency room after he had an acute episode of feeling dizzy and lightheaded. The episode had started abruptly. There was no actual vertigo with the episode. He did have nausea and sweating, and he turned pale. He also had some trouble breathing, and he felt weak and shaky. He did not have chest pain. The episode lasted only about 20 minutes. He had no further symptoms. His initial evaluation in the emergency room was unremarkable except for an elevated white blood cell count. His subsequent evaluation did include a 48 hour Holter monitor, which apparently showed no abnormality. He was seen for follow-up as an outpatient by Dr. Roy. A CBC at that time showed normal hemoglobin at 15.1 g with hematocrit 46%. The red cell indices were normal. The white blood cell count was elevated at 31,700. The differential included 24% neutrophils, 65% lymphocytes, 9% monocytes, and 2% eosinophils. The report included the presence of abnormal lymphocytes (smudge cells). I had seen him initially in December 2014. He had further evaluation with bone marrow aspiration/biopsy on 01/05/2015. The bone marrow showed increased cellularity at 95%. Flow cytometry confirmed the presence of a population of monotypic B cells consistent with chronic lymphocytic leukemia. There was evidence of CD38 expression in excess of 30%, reported to be an adverse prognostic marker. 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 As he appeared to have early stage disease by clinical evaluation (Sellers stage 0), observation/expectant management was recommended. As of his follow-up visit in August 2018 his white count had increased to 142,000. His hemoglobin was down just slightly at 13.6 g. His platelet count was normal at 232,000. He appeared stable clinically, and he continued on observation/expectant management. As of 12/03/2018 there was further decrease in the hemoglobin to 11.4 g. As of his follow-up visit on 03/04/2019 his hemoglobin was down to 10.2 g with his white blood cell count elevated at 152,000. His platelet count was still normal at 201,000. At that time I had discussed the possibility of starting treatment with ibrutinib. It was deferred pending verification of insurance coverage, but he did then start treatment with ibrutinib 420 mg daily on 03/25/2019. He also was given prophylaxis with allopurinol. At his follow-up visit on 04/08/2019 his white count had increased to 286,000 with hemoglobin mildly decreased at 10.9 g and platelet count normal at 300,000. He continued ibrutinib 420 mg daily. As of 05/06/2019 the white count had further increased to 353,000 but with his hemoglobin increased to 12.3 g and his platelet count normal at 363,000. During subsequent followup there was a gradual decline in his white blood cell count with his hemoglobin remaining stable. He continued ibrutinib 420 mg daily. He has otherwise been in good health. He has no other medical illnesses. He has a history of smoking 2 packs of cigarettes daily for 30 years, but he quit smoking 4 years ago. INTERIM HISTORY: He is seen for a follow-up visit. He has been feeling pretty good generally. He says his energy is down some but he is not as active. He is still doing light work. ECOG score is 1. Appetite is pretty good. He has no fever or night sweats. He has had some sinus drainage and he occasionally has cough. He has not had sore mouth or throat. He is sometimes short of breath. He does not complain of chest pain. He has occasional acid reflux and is still occasionally has diarrhea. He has no complaints. He has joint pain, mainly in his knees. He does not complain of headache. He has occasional dizziness, mainly with quick movements. He sometimes has numbness in his feet. Medications: Allopurinol 1 Tablet (of 300 mg) Oral daily, Imbruvica 1 (420 mg) Tablet Oral daily Allergies: No Known Allergies. Vital Signs: Performed on Mar 08, 2021 11:39 Height - 71.00 in Weight - 276.4 lbs (HIGH) BSA - 2.42 sq.m BMI - 38.55 (HIGH) Temperature - 96.2 F (LOW) Pulse - 52 /min (LOW) Respiration - 16 /min BP - 172/66 mm(hg) (HIGH) O2 Sat - 95 % (LOW) Pain - 0 Fatigue - 5 Physical Examination: Constitutional - He looks pretty good generally, Eyes - Sclerae nonicteric. Conjunctivae clear, ENMT - No lesions noted in the oral cavity, Hematologic/Lymphatic - No cervical, clavicular, or axillary adenopathy, Respiratory - Lungs sound clear with diminished air movement bilaterally, Cardiovascular - Heart rhythm is regular with a bradycardia. There is no murmur, gallop, or rub noted, Abdomen - Mildly distended. Liver and spleen are not enlarged. There is no abdominal mass or ascites noted and there is no inguinal adenopathy, Extremities - No edema, Neurologic - No focal neurologic deficits noted. Lab/Imaging: Test performed on Mar 08, 2021 08:50 Sodium 138 mmol/L Potassium 4.5 mmol/L Chloride 104 mmol/L CO2 21 mmol/L Anion Gap 17.5 BUN 14 mg/dL Creatinine 1.2 mg/dL Cr Clearance (Est) 104.48 mL/min eGFR 60.2 mL/min Glucose 97 mg/dL Osmolality - Calculated 286 mOsm/kg Calcium 8.7 mg/dL Protein, Total 6.7 g/dL Albumin 4.4 g/dL Globulin 2.3 g/dL Bilirubin, Total 0.6 mg/dL ALT (SGPT) 11 U/L AST (SGOT) 13 U/L Alkaline Phosphatase 104 IU/L WBC 42.7 10 3/uL Manual Segs % 27 % Manual Bands % 0.0 % RBC 5.13 10 6/uL HGB 15.4 g/dL Manual Lymphs % 7 % Atypical Lymphs % 63.0 % HCT 47.5 % MCV 92.6 fl Total Cells Counted 100 Manual Monos % 2.0 % MCH 30.0 pg Manual Eos % 1 % MCHC 32.4 g/dL Manual Basos % 0.0 % RDW 14.2 % Platelet Count 373 10 3/cmm MPV 11.5 fL CBC Slide Review Slide Review Perform Platelet Estimate Normal Manual Segs Abs 11.5 10/cmm Manual Bands Abs 0.0 10 3/cmm Manual Neutrophils Abs 11.5 10 3/cmm Manual Lymphocytes Abs 29.9 10 3/cmm Manual Monocytes Abs 0.9 10 3/cmm Manual Eosinophils Abs 0.4 10 3/cmm Manual Basophils Abs 0.0 10 3/cmm Problem List: 1. Chronic lymphocytic leukemia, Sellers stage 0 at initial diagnosis in December 2014. 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 He did not, however, have any indication for treatment, and he was initially followed on observation/expectant management. 2. COPD. 3. Chronic kidney disease. Problems Addressed with this Encounter and Plan: Patient with chronic lymphocytic leukemia, Sellers stage 0 at initial diagnosis. 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 He did not, however, have any indication for treatment, and he was initially followed on observation/expectant management. During followup there was a gradual and progressive increase in his lymphocyte count. As of February 2019 he had become mildly anemic, and he also had associated splenomegaly. The serum iron studies had shown borderline low transferrin saturation, but overall the findings appeared to be most consistent with progression of the chronic lymphocytic leukemia to Sellers stage III. On 03/25/2019 he began treatment with ibrutinib 420 mg daily. He also started prophylaxis with allopurinol. Initially there was a significant increase in his lymphocyte count, reaching a maximum of 353,000 on 05/06/2019. However, there was evidence of response with an increase in his hemoglobin level. He then continued the ibrutinib at 420 mg daily. For a while he was having diarrhea, but that did improve. He has otherwise tolerated it well. During follow-up he continued to show gradual improvement with declining lymphocyte count and further improvement in the anemia. During follow-up he has had persistent lymphocytosis. It had been gradually declining, but the current CBC does show an increase in the absolute lymphocyte count from to almost 30,000 compared to approximately 20,000 in November. As yet the significance of this is uncertain, but he may be developing resistance. He appears stable clinically. As such, for now he will continue ibrutinib at 420 mg daily. I will see him again in 3 months. Signed By: Sang Pandey M.D. <<Signature on File>>
== END 2021-03-08 08:38 | disposition home or self-care (01) ==
LOC: ONCMED 08:42
PROVIDERS: PCP Family Medicine; Visit Provider Internal Medicine Medical Oncology
DX: C91.10 Chronic lymphocytic leukemia of B-cell type not having achieved remission (principal); J44.9 Chronic obstructive pulmonary disease, unspecified; N18.9 Chronic kidney disease, unspecified; Z79.899 Other long term (current) drug therapy
CPT/HCPCS: 36415; 80053; 85007; 85025; 99214

== ENCOUNTER 2021-06-07 12:42 | Outpatient (CLI) | payer MEDICARE, SELFPAY ==
[2021-06-07 13:25] LABS: Hematocrit 49.5 % (42.0-52.0); Hemoglobin 15.8 g/dL (11.7-16.6); Mean Corpuscular HGB Conc 31.9 g/dL (30.0-36.0); Mean Corpuscular Hemoglobin 30.1 pg (28.0-34.0); Mean Corpuscular Volume 94.3 fl (80-94); Mean Platelet Volume 11.2 fL (7.4-10.4); Platelet Count 397 10^3/cmm (130-400); Red Blood Count 5.25 10^6/uL (4.1-5.3); Red Cell Distribution Width 14.6 % (12.1-15.1)
[2021-06-07 13:52] LABS: Alanine Aminotransferase 13 U/L (0-41); Albumin Level 4.5 g/dL (3.5-5.2); Alkaline Phosphatase 111 IU/L (40-130); Anion Gap 16.4 (5-19); Aspartate Amino Transferase 10 U/L (0-40); Blood Urea Nitrogen 14 mg/dL (8-23); Calcium 9.3 mg/dL (8.5-10.5); Carbon Dioxide 24 mmol/L (22-29); Chloride 103 mmol/L (98-107); Globulin 2.1 g/dL (1.3-4.6); Glomerular Filtration Rate 66.6 mL/min (90-130); Glucose 123 mg/dL (65-115); Lactate Dehydrogenase 153 U/L (135-225); Osmolality Calculated 290 mOsm/kg (285-295); Potassium 4.4 mmol/L (3.5-5.1); Sodium 139 mmol/L (136-145); Total Bilirubin 0.8 mg/dL (0.15-1.2); Total Protein 6.6 g/dL (6.6-8.7)
[2021-06-07 14:26] LABS: Slide Review Slide Review Perform; White Blood Count 39.6 10^3/uL (4.0-10.0)
[2021-06-07 14:31] LABS: Absolute Eosinophils 1.1 10^3/cmm (0.0-0.7); Absolute Neutrophil 13.9 10^3/cmm (1.4-6.5); Absolute Segmented Neutrophil 13.9 10/cmm (1.6-7.1); Eosinophils 3 %; Lymphocytes 7 %; Lymphocytes Absolute 23.4 10^3/cmm (1.2-3.4); Monocytes Absolute 0.8 10^3/cmm (0.1-0.6); Platelet Estimate Increased (Normal); Segmented Neutrophils 35 %; Total Cells Counted 100 (0-100)
[2021-06-07 14:32] LABS: Blastocytes 1 % (0-0)
--- NOTE | 2021-06-11 10:09 | ONC FU_ITS ---
Dr. Pandey Patient Follow-Up Note Patient: Fredy Pabon Unit #: [id number]: [id number] Dicatated By: Sang Pandey M.D.Date of Visit:Jun 07, 2021 Onc Med Follow-up/Prog Note Chief Complaint: Chronic lymphocytic leukemia. History of Present Illness: This is a 66 year-old man with chronic lymphocytic leukemia, Sellers stage 0 at initial diagnosis in 2014. In October 2014 he had presented to the [place] emergency room after he had an acute episode of feeling dizzy and lightheaded. The episode had started abruptly. There was no actual vertigo with the episode. He did have nausea and sweating, and he turned pale. He also had some trouble breathing, and he felt weak and shaky. He did not have chest pain. The episode lasted only about 20 minutes. He had no further symptoms. His initial evaluation in the emergency room was unremarkable except for an elevated white blood cell count. His subsequent evaluation did include a 48 hour Holter monitor, which apparently showed no abnormality. He was seen for follow-up as an outpatient by Dr. Roy. A CBC at that time showed normal hemoglobin at 15.1 g with hematocrit 46%. The red cell indices were normal. The white blood cell count was elevated at 31,700. The differential included 24% neutrophils, 65% lymphocytes, 9% monocytes, and 2% eosinophils. The report included the presence of abnormal lymphocytes (smudge cells). I had seen him initially in December 2014. He had further evaluation with bone marrow aspiration/biopsy on 01/05/2015. The bone marrow showed increased cellularity at 95%. Flow cytometry confirmed the presence of a population of monotypic B cells consistent with chronic lymphocytic leukemia. There was evidence of CD38 expression in excess of 30%, reported to be an adverse prognostic marker. 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 As he appeared to have early stage disease by clinical evaluation (Sellers stage 0), observation/expectant management was recommended. As of his follow-up visit in August 2018 his white count had increased to 142,000. His hemoglobin was down just slightly at 13.6 g. His platelet count was normal at 232,000. He appeared stable clinically, and he continued on observation/expectant management. As of 12/03/2018 there was further decrease in the hemoglobin to 11.4 g. As of his follow-up visit on 03/04/2019 his hemoglobin was down to 10.2 g with his white blood cell count elevated at 152,000. His platelet count was still normal at 201,000. At that time I had discussed the possibility of starting treatment with ibrutinib. It was deferred pending verification of insurance coverage, but he did then start treatment with ibrutinib 420 mg daily on 03/25/2019. He also was given prophylaxis with allopurinol. At his follow-up visit on 04/08/2019 his white count had increased to 286,000 with hemoglobin mildly decreased at 10.9 g and platelet count normal at 300,000. He continued ibrutinib 420 mg daily. As of 05/06/2019 the white count had further increased to 353,000 but with his hemoglobin increased to 12.3 g and his platelet count normal at 363,000. During subsequent followup there was a gradual decline in his white blood cell count with his hemoglobin remaining stable. He continued ibrutinib 420 mg daily. He has otherwise been in good health. He has no other medical illnesses. He has a history of smoking 2 packs of cigarettes daily for 30 years, but he quit smoking 4 years ago. INTERIM HISTORY: He is seen for a follow-up visit. He has been feeling pretty good generally, though recently has felt lightheaded at times. His energy is otherwise pretty good. His ECOG score is 1. He has good appetite. He has not had fever. He very occasionally has sweating at night. He has not had sore mouth or throat. He has had a little cough over the last couple of weeks. He has some shortness of breath, but that is the same. He does not complain of chest pain. He has very occasional nausea and he has just very occasional diarrhea. His urination is sometimes slow, but bladder function remains adequate. He has pain in his hands and knees, worse on the right. He does not complain of headache. He has some numbness on the bottoms of his feet. He has not had any abnormal bruising or other bleeding manifestations. Medications: Allopurinol 1 Tablet (of 300 mg) Oral daily, Imbruvica 1 (420 mg) Tablet Oral daily Allergies: No Known Allergies. Vital Signs: Performed on Jun 07, 2021 14:28 Height - 71.00 in Weight - 268.8 lbs (LOW) BSA - 2.39 sq.m BMI - 37.49 (HIGH) Temperature - 97.2 F (LOW) Pulse - 51 /min (LOW) Respiration - 17 /min BP - 152/71 mm(hg) (HIGH) O2 Sat - 97 % Pain - 0 Fatigue - 2 Physical Examination: Constitutional - He looks pretty good generally, Eyes - Sclerae nonicteric. Conjunctivae clear, ENMT - No lesions noted in the oral cavity, Hematologic/Lymphatic - No cervical, clavicular, or axillary adenopathy, Respiratory - Lungs sound clear with diminished air movement bilaterally, Cardiovascular - Heart rhythm is regular with a bradycardia. There is no murmur, gallop, or rub noted, Abdomen - Mildly distended. Liver and spleen are not enlarged. There is no abdominal mass or ascites noted and there is no inguinal adenopathy, Extremities - No edema, Neurologic - No focal neurologic deficits noted. Lab/Imaging: Test performed on Jun 07, 2021 13:15 LDH (Total) 153 U/L Sodium 139 mmol/L Potassium 4.4 mmol/L Chloride 103 mmol/L CO2 24 mmol/L Anion Gap 16.4 BUN 14 mg/dL Creatinine 1.1 mg/dL Cr Clearance (Est) 110.84 mL/min eGFR 66.6 mL/min Glucose 123 mg/dL Osmolality - Calculated 290 mOsm/kg Calcium 9.3 mg/dL Protein, Total 6.6 g/dL Albumin 4.5 g/dL Globulin 2.1 g/dL Bilirubin, Total 0.8 mg/dL ALT (SGPT) 13 U/L AST (SGOT) 10 U/L Alkaline Phosphatase 111 IU/L WBC 39.6 10 3/uL Manual Segs % 35 % Manual Bands % 0.0 % RBC 5.25 10 6/uL HGB 15.8 g/dL Manual Lymphs % 7 % Atypical Lymphs % 52.0 % HCT 49.5 % MCV 94.3 fl Total Cells Counted 100 Manual Monos % 2.0 % MCH 30.1 pg Manual Eos % 3 % MCHC 31.9 g/dL Manual Basos % 0.0 % RDW 14.6 % Platelet Count 397 10 3/cmm MPV 11.2 fL Blasts % 1 % CBC Slide Review Slide Review Perform Platelet Estimate Increased Manual Segs Abs 13.9 10/cmm Manual Bands Abs 0.0 10 3/cmm Manual Neutrophils Abs 13.9 10 3/cmm Manual Lymphocytes Abs 23.4 10 3/cmm Manual Monocytes Abs 0.8 10 3/cmm Manual Eosinophils Abs 1.1 10 3/cmm Manual Basophils Abs 0.0 10 3/cmm Problem List: 1. Chronic lymphocytic leukemia, Sellers stage 0 at initial diagnosis in December 2014. 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 He did not, however, have any indication for treatment, and he was initially followed on observation/expectant management. 2. COPD. 3. Chronic kidney disease. Problems Addressed with this Encounter and Plan: Patient with chronic lymphocytic leukemia, Sellers stage 0 at initial diagnosis. 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 He did not, however, have any indication for treatment, and he was initially followed on observation/expectant management. During followup there was a gradual and progressive increase in his lymphocyte count. As of February 2019 he had become mildly anemic, and he also had associated splenomegaly. The serum iron studies had shown borderline low transferrin saturation, but overall the findings appeared to be most consistent with progression of the chronic lymphocytic leukemia to Sellers stage III. On 03/25/2019 he began treatment with ibrutinib 420 mg daily. He also started prophylaxis with allopurinol. Initially there was a significant increase in his lymphocyte count, reaching a maximum of 353,000 on 05/06/2019. However, there was evidence of response with an increase in his hemoglobin level. He then continued the ibrutinib at 420 mg daily. For a while he was having diarrhea, but that did improve. He has otherwise tolerated it well. During follow-up he continued to show gradual improvement with declining lymphocyte count and further improvement in the anemia. During follow-up he has had persistent lymphocytosis. It had been gradually declining, but it does appear now to have stabilized. However, his other blood counts remain normal, and his clinical status appears stable. In the absence of any evidence of disease progression he will continue treatment with ibrutinib at 420 mg daily. I will see him again in 3 months. Signed By: Sang Pandey M.D. <<Signature on File>>
== END 2021-06-07 12:43 | disposition home or self-care (01) ==
LOC: ONCMED 12:49
PROVIDERS: Internal Medicine Medical Oncology; PCP Family Medicine; Visit Provider Neurological Surgery
DX: C91.10 Chronic lymphocytic leukemia of B-cell type not having achieved remission (principal); J44.9 Chronic obstructive pulmonary disease, unspecified; N18.9 Chronic kidney disease, unspecified; Z79.899 Other long term (current) drug therapy
CPT/HCPCS: 36415; 80053; 83615; 85007; 85025; 99214

== ENCOUNTER 2021-10-04 10:10 | Oncology outpatient (recurring) (ONCR) | payer MEDICARE, SELFPAY ==
[2021-10-04 11:29] LABS: Hematocrit 48.2 % (42.0-52.0); Mean Corpuscular HGB Conc 31.1 g/dL (30.0-36.0); Mean Corpuscular Hemoglobin 29.6 pg (28.0-34.0); Mean Corpuscular Volume 95.3 fl (80-94); Mean Platelet Volume 11.4 fL (7.4-10.4); Platelet Count 281 10^3/cmm (130-400); Red Blood Count 5.06 10^6/uL (4.1-5.3); Red Cell Distribution Width 14.5 % (12.1-15.1)
[2021-10-04 12:07] LABS: Alanine Aminotransferase 11 U/L (0-41); Albumin Level 4.3 g/dL (3.5-5.2); Alkaline Phosphatase 109 IU/L (40-130); Aspartate Amino Transferase 14 U/L (0-40); Blood Urea Nitrogen 21 mg/dL (8-23); Calcium 9.9 mg/dL (8.5-10.5); Carbon Dioxide 26 mmol/L (22-29); Chloride 103 mmol/L (98-107); Globulin 2.1 g/dL (1.3-4.6); Glomerular Filtration Rate 66.6 mL/min (90-130); Glucose 98 mg/dL (65-115); Osmolality Calculated 293 mOsm/kg (285-295); Sodium 140 mmol/L (136-145); Total Bilirubin 0.5 mg/dL (0.15-1.2); Total Protein 6.4 g/dL (6.6-8.7)
[2021-10-04 12:21] LABS: Anion Gap 15.5 (5-19); Potassium 4.5 mmol/L (3.5-5.1)
[2021-10-04 12:22] LABS: Lactate Dehydrogenase 155 U/L (135-225)
[2021-10-04 12:52] LABS: Slide Review Slide Review Perform
[2021-10-04 12:53] LABS: Absolute Eosinophils 0.2 10^3/cmm (0.0-0.7); Absolute Neutrophil 11.3 10^3/cmm (1.4-6.5); Absolute Segmented Neutrophil 11.3 10/cmm (1.6-7.1); Eosinophils 1 %; Lymphocytes 23 %; Lymphocytes Absolute 13.8 10^3/cmm (1.2-3.4); Monocytes Absolute 1.6 10^3/cmm (0.1-0.6); Platelet Estimate Normal (Normal); Segmented Neutrophils 42 %; Smudge Cells 1+; Total Cells Counted 100 (0-100)
== END 2021-10-16 23:59 | disposition home or self-care (01) ==
PROVIDERS: PCP Family Medicine; Visit Provider Internal Medicine Medical Oncology
DX: C91.10 Chronic lymphocytic leukemia of B-cell type not having achieved remission (principal); D64.9 Anemia, unspecified; R19.7 Diarrhea, unspecified; Z79.899 Other long term (current) drug therapy
CPT/HCPCS: 36415; 80053; 83615; 85007; 85025; 99214

== ENCOUNTER 2022-01-18 13:46 | Oncology outpatient (recurring) (ONCR) | payer MEDICARE, SELFPAY ==
[2022-01-18 14:07] LABS: Basophils # 0.2 10^3/uL (0.0-0.1); Basophils % 0.5 %; Eosinophils # 0.2 10^3/uL (0.0-0.8); Eosinophils % 0.4 %; Hematocrit 46.9 % (42.0-52.0); Hemoglobin 15.1 g/dL (11.7-16.6); Lymphocytes # 28.7 10^3/uL (0.8-4.8); Lymphocytes % 70.5 %; Mean Corpuscular HGB Conc 32.2 g/dL (30.0-36.0); Mean Corpuscular Hemoglobin 29.9 pg (28.0-34.0); Mean Corpuscular Volume 92.9 fl (80-94); Mean Platelet Volume 11.3 fL (7.4-10.4); Monocytes # 4.8 10^3/uL (0.2-0.9); Monocytes % 11.8 %; Neutrophils # 6.67 10^3/uL (1.8-7.7); Neutrophils % 16.4 %; Nucleated Red Blood Cells % 0 %; Platelet Count 290 10^3/cmm (130-400); Red Blood Count 5.05 10^6/uL (4.1-5.3); Red Cell Distribution Width 14.5 % (12.1-15.1)
[2022-01-18 14:28] LABS: Alanine Aminotransferase 13 U/L (0-41); Albumin Level 4.6 g/dL (3.5-5.2); Alkaline Phosphatase 104 U/L (40-130); Aspartate Amino Transferase 14 U/L (0-40); Blood Urea Nitrogen 24 mg/dL (8-23); Calcium 9.5 mg/dL (8.5-10.5); Carbon Dioxide 26 mmol/L (22-29); Chloride 104 mmol/L (98-107); Globulin 2.1 g/dL (1.3-4.6); Glomerular Filtration Rate 54.9 mL/min (90-130); Glucose 131 mg/dL (65-115); Lactate Dehydrogenase 149 U/L (135-225); Osmolality Calculated 296 mOsm/kg (285-295); Sodium 140 mmol/L (136-145); Total Bilirubin 0.5 mg/dL (0.15-1.2); Total Protein 6.7 g/dL (6.6-8.7)
[2022-01-18 15:13] LABS: Slide Review Slide Review Perform; White Blood Count 40.7 10^3/uL (4.0-10.0)
[2022-01-20 16:14] LABS: Leukemia Profile (BBPL) See Report; Lymphoma Profile (BBPL) See Report
== END 2022-02-15 23:59 | disposition home or self-care (01) ==
PROVIDERS: PCP Family Medicine; Visit Provider Internal Medicine Medical Oncology
DX: C91.10 Chronic lymphocytic leukemia of B-cell type not having achieved remission (principal); D64.9 Anemia, unspecified; Z79.899 Other long term (current) drug therapy; Z87.891 Personal history of nicotine dependence
CPT/HCPCS: 80053; 83615; 85025; 88184; 88185; 99214

== ENCOUNTER 2022-02-27 13:28 | Oncology outpatient (recurring) (ONCR) | payer MEDICARE, SELFPAY ==
[2022-02-27 14:14] LABS: Basophils # 0.2 10^3/uL (0.0-0.1); Basophils % 0.5 %; Eosinophils # 0.2 10^3/uL (0.0-0.8); Eosinophils % 0.4 %; Hematocrit 48.8 % (42.0-52.0); Hemoglobin 15.6 g/dL (11.7-16.6); Lymphocytes # 32.5 10^3/uL (0.8-4.8); Lymphocytes % 72.8 %; Mean Corpuscular Hemoglobin 30.4 pg (28.0-34.0); Mean Corpuscular Volume 94.9 fl (80-94); Mean Platelet Volume 11.6 fL (7.4-10.4); Monocytes # 4.9 10^3/uL (0.2-0.9); Monocytes % 10.9 %; Neutrophils # 6.77 10^3/uL (1.8-7.7); Neutrophils % 15.1 %; Nucleated Red Blood Cells % 0 %; Platelet Count 295 10^3/cmm (130-400); Red Blood Count 5.14 10^6/uL (4.1-5.3); Red Cell Distribution Width 14.6 % (12.1-15.1)
[2022-02-27 14:28] LABS: Slide Review Slide Review Perform; White Blood Count 44.6 10^3/uL (4.0-10.0)
[2022-02-27 14:29] LABS: Alanine Aminotransferase 10 U/L (0-41); Albumin Level 4.4 g/dL (3.5-5.2); Alkaline Phosphatase 110 U/L (40-130); Anion Gap 12.5 (5-19); Aspartate Amino Transferase 14 U/L (0-40); Blood Urea Nitrogen 18 mg/dL (8-23); Calcium 9.5 mg/dL (8.5-10.5); Carbon Dioxide 30 mmol/L (22-29); Chloride 100 mmol/L (98-107); Globulin 2.1 g/dL (1.3-4.6); Glucose 91 mg/dL (65-115); Lactate Dehydrogenase 164 U/L (135-225); Osmolality Calculated 287 mOsm/kg (285-295); Potassium 4.5 mmol/L (3.5-5.1); Sodium 138 mmol/L (136-145); Total Bilirubin 0.6 mg/dL (0.15-1.2); Total Protein 6.5 g/dL (6.6-8.7)
== END 2022-03-18 23:59 | disposition home or self-care (01) ==
PROVIDERS: PCP Family Medicine; Visit Provider Internal Medicine Medical Oncology
DX: C91.10 Chronic lymphocytic leukemia of B-cell type not having achieved remission (principal); D64.9 Anemia, unspecified; Z79.899 Other long term (current) drug therapy; Z87.891 Personal history of nicotine dependence
CPT/HCPCS: 36415; 80053; 83615; 85025; 99214

== ENCOUNTER 2022-04-03 08:23 | Oncology outpatient (recurring) (ONCR) | payer MEDICARE, SELFPAY ==
[2022-04-03 09:35] LABS: Basophils # 0.4 10^3/uL (0.0-0.1); Basophils % 0.6 %; Eosinophils # 0.2 10^3/uL (0.0-0.8); Eosinophils % 0.3 %; Hemoglobin 14.6 g/dL (11.7-16.6); Lymphocytes % 75.3 %; Mean Corpuscular HGB Conc 31.7 g/dL (30.0-36.0); Mean Corpuscular Hemoglobin 29.8 pg (28.0-34.0); Mean Corpuscular Volume 93.9 fl (80-94); Mean Platelet Volume 11.5 fL (7.4-10.4); Monocytes # 8.1 10^3/uL (0.2-0.9); Neutrophils # 7.72 10^3/uL (1.8-7.7); Neutrophils % 11.5 %; Nucleated Red Blood Cells % 0 %; Platelet Count 325 10^3/cmm (130-400); Red Cell Distribution Width 14.3 % (12.1-15.1)
[2022-04-03 09:59] LABS: Slide Review Slide Review Perform
[2022-04-03 10:00] LABS: White Blood Count 67.7 10^3/uL (4.0-10.0)
== END 2022-04-18 23:59 | disposition home or self-care (01) ==
PROVIDERS: PCP Family Medicine; Visit Provider Internal Medicine Medical Oncology
DX: C91.10 Chronic lymphocytic leukemia of B-cell type not having achieved remission (principal)
CPT/HCPCS: 85025

== ENCOUNTER 2022-05-08 12:11 | Oncology outpatient (recurring) (ONCR) | payer MEDICARE, SELFPAY ==
[2022-05-08 13:05] LABS: Hematocrit 45.5 % (42.0-52.0); Hemoglobin 14.4 g/dL (11.7-16.6); Mean Corpuscular HGB Conc 31.6 g/dL (30.0-36.0); Mean Corpuscular Hemoglobin 29.9 pg (28.0-34.0); Mean Corpuscular Volume 94.6 fl (80-94); Mean Platelet Volume 10.9 fL (7.4-10.4); Platelet Count 349 10^3/cmm (130-400); Red Blood Count 4.81 10^6/uL (4.1-5.3); Red Cell Distribution Width 14.6 % (12.1-15.1)
[2022-05-08 13:22] LABS: Alanine Aminotransferase 13 U/L (0-41); Albumin Level 4.2 g/dL (3.5-5.2); Alkaline Phosphatase 118 U/L (40-130); Anion Gap 15.2 (5-19); Aspartate Amino Transferase 15 U/L (0-40); Blood Urea Nitrogen 12 mg/dL (8-23); Calcium 8.9 mg/dL (8.5-10.5); Carbon Dioxide 26 mmol/L (22-29); Chloride 102 mmol/L (98-107); Globulin 2.4 g/dL (1.3-4.6); Glomerular Filtration Rate 66.4 mL/min (90-130); Glucose 116 mg/dL (65-115); Lactate Dehydrogenase 170 U/L (135-225); Osmolality Calculated 289 mOsm/kg (285-295); Potassium 4.2 mmol/L (3.5-5.1); Sodium 139 mmol/L (136-145); Total Bilirubin 0.6 mg/dL (0.15-1.2); Total Protein 6.6 g/dL (6.6-8.7)
[2022-05-08 14:21] LABS: White Blood Count 61.5 10^3/uL (4.0-10.0)
[2022-05-08 14:27] LABS: Absolute Neutrophil 11.1 10^3/cmm (1.4-6.5); Absolute Segmented Neutrophil 11.1 10/cmm (1.6-7.1); Eosinophils 0 %; Lymphocytes 28 %; Lymphocytes Absolute 48.6 10^3/cmm (1.2-3.4); Monocytes Absolute 1.8 10^3/cmm (0.1-0.6); Platelet Estimate Normal (Normal); Segmented Neutrophils 18 %; Total Cells Counted 100 (0-100)
== END 2022-05-16 23:59 | disposition home or self-care (01) ==
PROVIDERS: PCP Family Medicine; Visit Provider Internal Medicine Medical Oncology
DX: C91.10 Chronic lymphocytic leukemia of B-cell type not having achieved remission (principal); D64.9 Anemia, unspecified; Z79.899 Other long term (current) drug therapy; Z87.891 Personal history of nicotine dependence; R16.1 Splenomegaly, not elsewhere classified; R19.7 Diarrhea, unspecified
CPT/HCPCS: 80053; 83615; 85007; 85025; 99214

== ENCOUNTER 2022-08-08 13:13 | Oncology outpatient (recurring) (ONCR) | payer MEDICARE, SELFPAY ==
[2022-08-08 14:00] LABS: Hematocrit 46.6 % (42.0-52.0); Mean Corpuscular HGB Conc 32.2 g/dL (30.0-36.0); Mean Corpuscular Hemoglobin 30.2 pg (28.0-34.0); Platelet Count 332 10^3/cmm (130-400); Red Blood Count 4.96 10^6/uL (4.1-5.3); Red Cell Distribution Width 14.6 % (12.1-15.1)
[2022-08-08 14:26] LABS: Alanine Aminotransferase 25 U/L (0-41); Albumin Level 4.3 g/dL (3.5-5.2); Alkaline Phosphatase 107 U/L (40-130); Anion Gap 14.7 (5-19); Aspartate Amino Transferase 23 U/L (0-40); Blood Urea Nitrogen 16 mg/dL (8-23); Calcium 9.4 mg/dL (8.5-10.5); Carbon Dioxide 26 mmol/L (22-29); Chloride 103 mmol/L (98-107); Globulin 2.5 g/dL (1.3-4.6); Glomerular Filtration Rate 66.4 mL/min (90-130); Glucose 96 mg/dL (65-115); Lactate Dehydrogenase 214 U/L (135-225); Osmolality Calculated 289 mOsm/kg (285-295); Potassium 4.7 mmol/L (3.5-5.1); Sodium 139 mmol/L (136-145); Total Bilirubin 0.4 mg/dL (0.15-1.2); Total Protein 6.8 g/dL (6.6-8.7)
[2022-08-08 15:20] LABS: Absolute Segmented Neutrophil 20.3 10/cmm (1.6-7.1); Eosinophils 0 %; Lymphocytes 4 %; Monocytes Absolute 0.8 10^3/cmm (0.1-0.6); Segmented Neutrophils 27 %; Slide Review Slide Review Perform; Total Cells Counted 100 (0-100)
[2022-08-08 15:21] LABS: Absolute Neutrophil 20.3 10^3/cmm (1.4-6.5); Lymphocytes Absolute 54.1 10^3/cmm (1.2-3.4); Platelet Estimate Normal (Normal); Smudge Cells 1+
[2022-08-08 15:23] LABS: White Blood Count 75.2 10^3/uL (4.0-10.0)
== END 2022-08-16 23:59 | disposition home or self-care (01) ==
LOC: ONCMED 13:15
PROVIDERS: PCP Family Medicine; Visit Provider Internal Medicine Medical Oncology
DX: C91.10 Chronic lymphocytic leukemia of B-cell type not having achieved remission (principal); D64.9 Anemia, unspecified; R19.7 Diarrhea, unspecified; Z79.899 Other long term (current) drug therapy; Z87.891 Personal history of nicotine dependence
CPT/HCPCS: 36415; 80053; 83615; 85007; 85025; 99214

== ENCOUNTER 2022-09-29 13:35 | Outpatient (CLI) | payer MEDICARE, SELFPAY ==
[2022-09-29] MEDS: iohexol 350 mg/mL 500 mL Btl (per mL) IV (14:01)
--- NOTE | 2022-09-29 15:30 | CTR_ITS ---
PROCEDURE INFORMATION: Exam: CT Chest With Contrast; Diagnostic Exam date and time: 09/29/2022 2:05 PM Age: 67 years old Clinical indication: Condition or disease; Other: Lymphoma; Initial oncological staging assessment; Additional info: Follow up, to be done at [facility] TECHNIQUE: Imaging protocol: Diagnostic computed tomography of the chest with contrast. Radiation optimization: All CT scans at this facility use at least one of these dose optimization techniques: automated exposure control; mA and/or kV adjustment per patient size (includes targeted exams where dose is matched to clinical indication); or iterative reconstruction. Contrast material: OMNI 350; Contrast volume: 100 ml; Contrast route: INTRAVENOUS (IV); REPORTING DATA: Count of CT and Cardiac NM exams in prior 12 months: This patient has received 0 known CTs and 0 known cardiac nuclear medicine studies in the 12 months prior to the current study. COMPARISON: No relevant prior studies available. RADIATION DOSE METRICS: Total DLP (mGy-cm): 2046.93 FINDINGS: Lungs: Emphysematous changes. Bibasilar atelectasis versus minimal infiltrate. Lingular lobe 14 mm nodule suspected. Pleural spaces: Unremarkable. No pneumothorax. No pleural effusion. Heart: Mild cardiomegaly. Coronary arteries: Coronary artery atherosclerotic calcifications. Lymph nodes: Scattered prominent subcentimeter nonspecific mediastinal and bilateral axillary lymph nodes. Vasculature: Unremarkable. No aortic aneurysm. Bones/joints: Unremarkable. No acute fracture. Soft tissues: Unremarkable. patients, consider CT Chest at 3 months, PET/CT, or biopsy. (Reference: David) COMMENTS: In the absence of a history or active diagnosis of lung cancer, it is recommended that this patient with emphysema be evaluated for enrollment in a low dose CT lung cancer screening program. REFERENCES: David Tam et al. Guidelines for Management of Incidental Pulmonary Nodules Detected on CT Images: From the Fleischner Society 2017. Radiology. 2017;284(1):228-243. PROCEDURE INFORMATION: Exam: CT Abdomen And Pelvis With Contrast Exam date and time: 09/29/2022 2:05 PM Age: 67 years old Clinical indication: Condition or disease; Other: Lymphoma; Initial oncological staging assessment; Additional info: Follow up, to be done at [facility] TECHNIQUE: Imaging protocol: Computed tomography of the abdomen and pelvis with contrast. Radiation optimization: All CT scans at this facility use at least one of these dose optimization techniques: automated exposure control; mA and/or kV adjustment per patient size (includes targeted exams where dose is matched to clinical indication); or iterative reconstruction. Contrast material: OMNI 350; Contrast volume: 100 ml; Contrast route: INTRAVENOUS (IV); REPORTING DATA: Count of CT and Cardiac NM exams in prior 12 months: This patient has received 0 known CTs and 0 known cardiac nuclear medicine studies in the 12 months prior to the current study. COMPARISON: No relevant prior studies available. RADIATION DOSE METRICS: Total DLP (mGy-cm): 2046.93 FINDINGS: Liver: Normal. No mass. Gallbladder and bile ducts: Normal. No calcified stones. No ductal dilation. Pancreas: Normal. No ductal dilation. Spleen: Spleen enlarged to 17.1 cm. Adrenal glands: Right adrenal hypertrophy suspected. Kidneys and ureters: Bilateral renal cysts, negative for follow-up advised. Perinephric edema bilaterally likely reflecting renal insufficiency, please correlate for pyelonephritis. Stomach and bowel: Mild diverticulosis without diverticulitis. Appendix: No evidence of appendicitis. Intraperitoneal space: Unremarkable. No free air. No significant fluid collection. Vasculature: Unremarkable. No abdominal aortic aneurysm. Lymph nodes: Diffuse suprarenal and infrarenal para-aortic adenopathy with lymph nodes measuring up to 16 mm short axis, may reflect provided history of lymphoma. Several prominent subcentimeter short axis inguinal lymph nodes bilaterally, nonspecific. Urinary bladder: Unremarkable as visualized. Reproductive: Unremarkable as visualized. Bones/joints: Unremarkable. No acute fracture. Soft tissues: Bilateral right greater than left fat containing inguinal hernias. CT/CT chest abdpel w/*[id number] IMPRESSION: 1. Scattered prominent subcentimeter nonspecific mediastinal and bilateral axillary lymph nodes. 2. Coronary artery atherosclerotic calcifications. 3. Mild cardiomegaly. 4. Emphysematous changes. 5. Bibasilar atelectasis versus minimal infiltrate. 6. Lingular lobe 14 mm nodule suspected. For both low risk and high risk IMPRESSION: 1. Diffuse suprarenal and infrarenal para-aortic adenopathy with lymph nodes measuring up to 16 mm short axis, may reflect provided history of lymphoma. 2. Spleen enlarged to 17.1 cm. 3. Right adrenal hypertrophy suspected. 4. Bilateral renal cysts, negative for follow-up advised. 5. Perinephric edema bilaterally likely reflecting renal insufficiency, please correlate for pyelonephritis. 6. Bilateral right greater than left fat containing inguinal hernias. 7. Several prominent subcentimeter short axis inguinal lymph nodes bilaterally, nonspecific. 8. Mild diverticulosis without diverticulitis. COMMENTS: Consistent with the [employer]'s Incidental Findings Committee white paper (J Am Martinez Radiol 2018): Any incidental renal lesion less than 1 cm or classified as too small to characterize, or any incidental cystic renal lesion characterized as simple-appearing, is likely benign. No follow-up imaging is recommended for these lesions per consensus recommendations based on imaging criteria.
== END 2022-09-29 13:36 | disposition home or self-care (01) ==
PROVIDERS: PCP Family Medicine; Visit Provider Internal Medicine Medical Oncology
DX: C91.10 Chronic lymphocytic leukemia of B-cell type not having achieved remission (principal); I25.10 Atherosclerotic heart disease of native coronary artery without angina pectoris; I51.7 Cardiomegaly; R91.1 Solitary pulmonary nodule; R16.1 Splenomegaly, not elsewhere classified; N28.1 Cyst of kidney, acquired; K40.20 Bilateral inguinal hernia, without obstruction or gangrene, not specified as recurrent; K57.30 Diverticulosis of large intestine without perforation or abscess without bleeding
CPT/HCPCS: 71260; 74177; Q9967

== ENCOUNTER 2022-11-01 10:17 | Oncology outpatient (recurring) (ONCR) | payer MEDICARE, SELFPAY ==
[2022-11-01 10:26] VITALS: BMI 39.0
[2022-11-01 10:27] VITALS: BP 151/79; PULSE 60; RESP 18; TEMP 37; O2SAT 94
[2022-11-01 10:36] LABS: Hematocrit 42.8 % (42.0-52.0); Hemoglobin 13.8 g/dL (11.7-16.6); Mean Corpuscular HGB Conc 32.2 g/dL (30.0-36.0); Platelet Count 293 10^3/cmm (130-400); Red Cell Distribution Width 15.2 % (12.1-15.1)
[2022-11-01 10:59] LABS: Alanine Aminotransferase 16 U/L (0-41); Albumin Level 4.4 g/dL (3.5-5.2); Alkaline Phosphatase 110 U/L (40-130); Anion Gap 14.4 (5-19); Aspartate Amino Transferase 19 U/L (0-40); Blood Urea Nitrogen 16 mg/dL (8-23); Calcium 9.1 mg/dL (8.5-10.5); Carbon Dioxide 26 mmol/L (22-29); Chloride 105 mmol/L (98-107); Globulin 2.1 g/dL (1.3-4.6); Glomerular Filtration Rate 54.7 mL/min (90-130); Glucose 99 mg/dL (65-115); Lactate Dehydrogenase 226 U/L (135-225); Osmolality Calculated 293 mOsm/kg (285-295); Potassium 4.4 mmol/L (3.5-5.1); Sodium 141 mmol/L (136-145); Total Bilirubin 0.5 mg/dL (0.15-1.2); Total Protein 6.5 g/dL (6.6-8.7)
[2022-11-01 11:08] LABS: Absolute Eosinophils 0.9 10^3/cmm (0.0-0.7); Absolute Segmented Neutrophil 11.2 10/cmm (1.6-7.1); Eosinophils 1 %; Lymphocytes 4 %; Lymphocytes Absolute 80.6 10^3/cmm (1.2-3.4); Monocytes Absolute 0.9 10^3/cmm (0.1-0.6); Segmented Neutrophils 12 %; Slide Review Slide Review Perform; Total Cells Counted 100 (0-100); White Blood Count 93.7 10^3/uL (4.0-10.0)
[2022-11-01 11:09] LABS: Absolute Neutrophil 11.2 10^3/cmm (1.4-6.5); Platelet Estimate Normal (Normal)
== END 2022-11-16 23:59 | disposition home or self-care (01) ==
PROVIDERS: PCP Family Medicine; Visit Provider Internal Medicine Medical Oncology
DX: C91.10 Chronic lymphocytic leukemia of B-cell type not having achieved remission (principal); Z79.899 Other long term (current) drug therapy; Z87.891 Personal history of nicotine dependence
CPT/HCPCS: 36415; 80053; 83615; 85007; 85025; 99214

== ENCOUNTER 2023-01-10 10:00 | Oncology outpatient (recurring) (ONCR) | payer MEDICARE, SELFPAY ==
[2022-12-18 13:40] VITALS: BP 159/72; PULSE 63; RESP 16; TEMP 36.8; O2SAT 94
[2022-12-18 13:52] LABS: Basophils # 0.4 10^3/uL (0.0-0.1); Basophils % 0.5 %; Eosinophils # 0.2 10^3/uL (0.0-0.8); Eosinophils % 0.2 %; Hematocrit 44.7 % (37-53); Lymphocytes # 49.7 10^3/uL (0.8-4.8); Lymphocytes % 60.4 %; Mean Corpuscular HGB Conc 32.2 g/dL (30-55); Mean Corpuscular Hemoglobin 30.3 pg (27-33); Mean Corpuscular Volume 93.9 fl (82-101); Mean Platelet Volume 11.1 fL (7.4-10.4); Monocytes # 20.9 10^3/uL (0.2-0.9); Monocytes % 25.4 %; Neutrophils # 10.89 10^3/uL (1.8-7.7); Neutrophils % 13.1 %; Nucleated Red Blood Cells % 0 %; Platelet Count 256 10^3/cmm (157-399); Red Blood Count 4.76 10^6/uL (3.85-5.65); Red Cell Distribution Width 14.6 % (12.1-15.1)
[2022-12-18 14:09] LABS: Alanine Aminotransferase 20 U/L (0-41); Albumin Level 4.5 g/dL (3.5-5.2); Alkaline Phosphatase 113 U/L (40-130); Anion Gap 15.1 (5-19); Aspartate Amino Transferase 25 U/L (0-40); Blood Urea Nitrogen 17 mg/dL (8-23); Calcium 9.1 mg/dL (8.5-10.5); Carbon Dioxide 26 mmol/L (22-29); Chloride 103 mmol/L (98-107); Globulin 2.2 g/dL (1.3-4.6); Glomerular Filtration Rate 50.2 mL/min (90-130); Glucose 111 mg/dL (65-115); Lactate Dehydrogenase 255 U/L (135-225); Osmolality Calculated 290 mOsm/kg (285-295); Potassium 5.1 mmol/L (3.5-5.1); Sodium 139 mmol/L (136-145); Total Bilirubin 0.9 mg/dL (0.15-1.2); Total Protein 6.7 g/dL (6.6-8.7)
[2022-12-18 14:22] LABS: Slide Review Slide Review Perform; White Blood Count 82.29 10^3/uL (3.29-11.43)
[2023-01-10 09:50] VITALS: BP 167/69; PULSE 52; RESP 16; TEMP 36.2; O2SAT 97
[2023-01-10 10:05] LABS: Basophils # 0.6 10^3/uL (0.0-0.1); Basophils % 0.7 %; Eosinophils # 0.2 10^3/uL (0.0-0.8); Eosinophils % 0.2 %; Hematocrit 46.7 % (37-53); Lymphocytes # 68.8 10^3/uL (0.8-4.8); Lymphocytes % 78.8 %; Mean Corpuscular HGB Conc 31.5 g/dL (30-55); Mean Corpuscular Hemoglobin 29.9 pg (27-33); Mean Corpuscular Volume 94.9 fl (82-101); Monocytes # 10.4 10^3/uL (0.2-0.9); Monocytes % 11.9 %; Neutrophils # 7.02 10^3/uL (1.8-7.7); Neutrophils % 8.1 %; Nucleated Red Blood Cells % 0 %; Platelet Count 300 10^3/cmm (157-399); Red Blood Count 4.92 10^6/uL (3.85-5.65); Red Cell Distribution Width 14.6 % (12.1-15.1)
[2023-01-10 10:21] LABS: Alanine Aminotransferase 12 U/L (0-41); Albumin Level 4.5 g/dL (3.5-5.2); Alkaline Phosphatase 106 U/L (40-130); Anion Gap 17.8 (5-19); Aspartate Amino Transferase 15 U/L (0-40); Blood Urea Nitrogen 17 mg/dL (8-23); Calcium 9.2 mg/dL (8.5-10.5); Carbon Dioxide 25 mmol/L (22-29); Chloride 103 mmol/L (98-107); Globulin 2.1 g/dL (1.3-4.6); Glomerular Filtration Rate 54.7 mL/min (90-130); Glucose 126 mg/dL (65-115); Lactate Dehydrogenase 176 U/L (135-225); Osmolality Calculated 295 mOsm/kg (285-295); Potassium 4.8 mmol/L (3.5-5.1); Sodium 141 mmol/L (136-145); Total Bilirubin 0.5 mg/dL (0.15-1.2); Total Protein 6.6 g/dL (6.6-8.7)
[2023-01-10 10:46] LABS: White Blood Count 87.23 10^3/uL (3.29-11.43)
[2023-01-10 10:50] LABS: Slide Review Slide Review Perform
== END 2023-01-16 23:59 | disposition home or self-care (01) ==
PROVIDERS: Nurse Practitioner Family; PCP Family Medicine; Visit Provider Internal Medicine Medical Oncology
DX: C91.10 Chronic lymphocytic leukemia of B-cell type not having achieved remission (principal)
CPT/HCPCS: 36415; 80053; 83615; 85025

== ENCOUNTER 2023-02-06 10:48 | Oncology outpatient (recurring) (ONCR) | payer MEDICARE, SELFPAY ==
[2023-02-06 11:01] VITALS: BP 141/77; PULSE 52; RESP 18; TEMP 36.7; O2SAT 96
[2023-02-06 11:24] LABS: Hematocrit 44.8 % (37-53); Mean Corpuscular HGB Conc 31.9 g/dL (30-55); Mean Corpuscular Hemoglobin 30.2 pg (27-33); Mean Corpuscular Volume 94.7 fl (82-101); Mean Platelet Volume 11.6 fL (7.4-10.4); Platelet Count 243 10^3/cmm (157-399); Red Blood Count 4.73 10^6/uL (3.85-5.65); Red Cell Distribution Width 14.6 % (12.1-15.1)
[2023-02-06 11:49] LABS: Alanine Aminotransferase 16 U/L (0-41); Albumin Level 4.4 g/dL (3.5-5.2); Alkaline Phosphatase 113 U/L (40-130); Anion Gap 14.7 (5-19); Aspartate Amino Transferase 17 U/L (0-40); Blood Urea Nitrogen 14 mg/dL (8-23); Calcium 9.5 mg/dL (8.5-10.5); Carbon Dioxide 26 mmol/L (22-29); Chloride 104 mmol/L (98-107); Globulin 2.3 g/dL (1.3-4.6); Glomerular Filtration Rate 54.6 mL/min (90-130); Glucose 117 mg/dL (65-115); Lactate Dehydrogenase 174 U/L (135-225); Osmolality Calculated 292 mOsm/kg (285-295); Potassium 4.7 mmol/L (3.5-5.1); Sodium 140 mmol/L (136-145); Total Bilirubin 0.7 mg/dL (0.15-1.2); Total Protein 6.7 g/dL (6.6-8.7)
[2023-02-06 12:04] LABS: White Blood Count 70.58 10^3/uL (3.29-11.43)
[2023-02-06 12:07] LABS: Slide Review Slide Review Perform
[2023-02-06 12:08] LABS: Total Cells Counted 100 (0-100)
[2023-02-06 12:14] LABS: Eosinophils 0 %; Lymphocytes 61 %; Lymphocytes Absolute 57.9 10^3/cmm (1.2-3.4); Monocytes Absolute 0.7 10^3/cmm (0.1-0.6); Segmented Neutrophils 17 %
[2023-02-06 12:15] LABS: Macrocytosis 1+; Platelet Estimate Normal (Normal)
== END 2023-02-15 23:59 | disposition home or self-care (01) ==
PROVIDERS: PCP Family Medicine; Visit Provider Internal Medicine Medical Oncology
DX: C91.10 Chronic lymphocytic leukemia of B-cell type not having achieved remission (principal); D64.9 Anemia, unspecified; R16.1 Splenomegaly, not elsewhere classified; R19.7 Diarrhea, unspecified; Z79.899 Other long term (current) drug therapy; Z87.891 Personal history of nicotine dependence
CPT/HCPCS: 36415; 80053; 83615; 85007; 85025; 99214

== ENCOUNTER 2023-05-16 11:18 | Oncology outpatient (recurring) (ONCR) | payer MEDICARE, SELFPAY ==
[2023-05-16 12:08] LABS: Basophils # 0.4 10^3/uL (0.0-0.1); Basophils % 0.4 %; Eosinophils # 0.2 10^3/uL (0.0-0.8); Eosinophils % 0.2 %; Hematocrit 44.8 % (37-53); Lymphocytes # 52.2 10^3/uL (0.8-4.8); Lymphocytes % 63.8 %; Mean Corpuscular HGB Conc 30.6 g/dL (30-55); Mean Corpuscular Hemoglobin 29.4 pg (27-33); Mean Corpuscular Volume 96.1 fl (82-101); Mean Platelet Volume 11.4 fL (7.4-10.4); Monocytes # 21.1 10^3/uL (0.2-0.9); Monocytes % 25.8 %; Neutrophils # 7.76 10^3/uL (1.8-7.7); Neutrophils % 9.5 %; Nucleated Red Blood Cells % 0 %; Platelet Count 261 10^3/cmm (157-399); Red Blood Count 4.66 10^6/uL (3.85-5.65); Red Cell Distribution Width 15.9 % (12.1-15.1)
[2023-05-16 12:23] LABS: Alanine Aminotransferase 31 U/L (0-41); Albumin Level 4.3 g/dL (3.5-5.2); Alkaline Phosphatase 177 U/L (40-130); Anion Gap 14.7 (5-19); Aspartate Amino Transferase 23 U/L (0-40); Blood Urea Nitrogen 15 mg/dL (8-23); Carbon Dioxide 27 mmol/L (22-29); Chloride 101 mmol/L (98-107); Globulin 2.5 g/dL (1.3-4.6); Glomerular Filtration Rate 66.2 mL/min (90-130); Glucose 83 mg/dL (65-115); Lactate Dehydrogenase 198 U/L (135-225); Osmolality Calculated 286 mOsm/kg (285-295); Potassium 4.7 mmol/L (3.5-5.1); Sodium 138 mmol/L (136-145); Total Bilirubin 0.7 mg/dL (0.15-1.2); Total Protein 6.8 g/dL (6.6-8.7)
[2023-05-16 12:53] LABS: White Blood Count 81.79 10^3/uL (3.29-11.43)
[2023-05-16 12:57] LABS: Slide Review Slide Review Perform
[2023-05-16 13:30] LABS: LAB Peripheral Smear Sent for Review
== END 2023-05-17 23:59 | disposition home or self-care (01) ==
PROVIDERS: Nurse Practitioner Family; PCP Family Medicine; Visit Provider Internal Medicine Medical Oncology
DX: C91.10 Chronic lymphocytic leukemia of B-cell type not having achieved remission (principal); Z79.899 Other long term (current) drug therapy; Z87.891 Personal history of nicotine dependence; Z79.622 Long term (current) use of Janus kinase inhibitor
CPT/HCPCS: 36415; 80053; 83615; 85025; 99214

== ENCOUNTER 2023-08-16 08:15 | Oncology outpatient (recurring) (ONCR) | payer MEDICARE, SELFPAY ==
--- NOTE | 2023-08-15 09:00 | CT_ITS ---
WS: [id number] CT CHEST, ABDOMEN AND PELVIS WITHOUT CONTRAST HISTORY: Restaging lymphoma. TECHNIQUE: Contiguous 5 mm axial imaging performed through the chest, abdomen and pelvis without IV c ontrast, oral contrast has been provided. Coronal and sagittal reformats chest. Coronal and sagittal reformats through the abdomen and pelvis. All CT scans at [facility] use at least one of thes e dose optimization techniques: automated exposure control; mA and/or kV adjustment per patient size (includes targeted exams where dose is matched to clinical indication); or iterative reconstruction. CONTRAST: None DLP: 1223.48 mGy.cm COMPARISON: 09/29/[address]: Numerous small mediastinal and hilar lymph nodes. The number and size of the lymph nodes is slightly increased. Hilar regions are also difficult to evaluate without IV contrast. There are a fe w paraesophageal and retrocrural lymph nodes with the largest lymph node measuring 14 mm in the RIGHT retrocrural region. Some of the retrocrural lymph nodes appear slightly greater in size. Retrocrural lymph nodes have increased in size and number. Wedge-shaped atelectasis LEFT lung base. No pulmonary mass or nodule. No pneumonia. Mild atherosclero sis aorta. Abdomen CT: Unenhanced evaluation of the visceral organs. Liver is normal size. Spleen continues to b e moderately enlarged extending over a length of 18 cm. Similar to the prior study. Unenhanced imagin g of the pancreas is negative. Mild RIGHT adrenal gland thickening. LEFT adrenal is negative. Mild at herosclerosis aorta. Bilateral renal cysts. No renal obstruction. There has been a moderate increase in size and number of the central mesenteric and retroperitoneal l ymph nodes. Largest LEFT para-aortic lymph node measures 3.0 cm. On the prior study this lymph node m easured 2.4 cm in transverse diameter. Significant increase in size and number of the aortocaval and precaval lymph nodes. Increasing lymphadenopathy around the celiac axis and dank hepatis. Increasing lymph node burden along the iliac chains. Increase in size and number of the inguinal lymph nodes, g reatest on the RIGHT. Pelvic CT: Millimeters send urinary bladder. No free fluid. Inguinal canals are patent bilaterally. R IGHT obturator lymph node measuring 3.4 cm as compared to 2.5 cm. No bony destruction. CT/[place] [id number] IMPRESSION: 1. There has been a moderate increase in size and number of the central mesent paz and retroperitoneal lymphadenopathy in the abdomen and pelvis. Lymph nodes have increased in size and number. 2. Slight increase in size and number of the mediastinal and hilar lymph nodes . Hilar lymph nodes are difficult to evaluate well without IV contrast. 3. Moderate splenomegaly. 4. No ascites. 5. Bilateral renal cysts.
[2023-08-15] MEDS: iohexol 350 mg/mL 500 mL Btl (per mL) PO (10:05)
[2023-08-16 08:47] LABS: Hematocrit 45.9 % (37-53); Mean Corpuscular HGB Conc 31.8 g/dL (30-55); Mean Corpuscular Hemoglobin 29.6 pg (27-33); Mean Corpuscular Volume 93.1 fl (82-101); Mean Platelet Volume 11.1 fL (7.4-10.4); Platelet Count 263 10^3/cmm (157-399); Red Blood Count 4.93 10^6/uL (3.85-5.65)
[2023-08-16 09:02] LABS: Alanine Aminotransferase 13 U/L (0-41); Albumin Level 4.3 g/dL (3.5-5.2); Alkaline Phosphatase 117 U/L (40-130); Anion Gap 12.9 (5-19); Aspartate Amino Transferase 19 U/L (0-40); Blood Urea Nitrogen 19 mg/dL (8-23); Carbon Dioxide 25 mmol/L (22-29); Chloride 102 mmol/L (98-107); Creatinine Clr Calc Pharmacy 55.3459; Globulin 2.4 g/dL (1.3-4.6); Glomerular Filtration Rate 42.9 mL/min (90-130); Glucose 96 mg/dL (65-115); Osmolality Calculated 282 mOsm/kg (285-295); Potassium 4.9 mmol/L (3.5-5.1); Sodium 135 mmol/L (136-145); Total Bilirubin 0.8 mg/dL (0.15-1.2); Total Protein 6.7 g/dL (6.6-8.7)
[2023-08-16 09:32] LABS: Absolute Segmented Neutrophil 10.4 10/cmm (1.6-7.1); Lymphocytes 10 %; Segmented Neutrophils 8 %; Total Cells Counted 100 (0-100)
[2023-08-16 09:33] LABS: Absolute Neutrophil 10.4 10^3/cmm (1.4-6.5); Eosinophils 0 %; Lymphocytes Absolute 119.8 10^3/cmm (1.2-3.4); Platelet Estimate Decreased (Normal); White Blood Count 130.23 10^3/uL (3.29-11.43)
== END 2023-08-17 23:59 | disposition home or self-care (01) ==
PROVIDERS: Internal Medicine Medical Oncology; PCP Family Medicine; Visit Provider Nurse Practitioner Family
DX: Z53.9 Procedure and treatment not carried out, unspecified reason; C91.10 Chronic lymphocytic leukemia of B-cell type not having achieved remission; Z87.891 Personal history of nicotine dependence; Z79.899 Other long term (current) drug therapy
CPT/HCPCS: 36415; 71250; 74176; 80053; 84550; 85007; 85025; 99214; Q9967

== ENCOUNTER 2023-09-11 08:30 | Oncology outpatient (recurring) (ONCR) | payer MEDICARE, SELFPAY ==
[2023-08-30 08:31] LABS: Hematocrit 43.6 % (37-53); Mean Corpuscular HGB Conc 33.5 g/dL (30-55); Mean Corpuscular Hemoglobin 29.9 pg (27-33); Mean Corpuscular Volume 89.3 fl (82-101); Mean Platelet Volume 10.9 fL (7.4-10.4); Platelet Count 223 10^3/cmm (157-399); Red Blood Count 4.88 10^6/uL (3.85-5.65)
[2023-08-30 08:48] LABS: Alanine Aminotransferase 33 U/L (0-41); Albumin Level 3.6 g/dL (3.5-5.2); Alkaline Phosphatase 530 U/L (40-130); Aspartate Amino Transferase 57 U/L (0-40); Blood Urea Nitrogen 26 mg/dL (8-23); Carbon Dioxide 23 mmol/L (22-29); Chloride 99 mmol/L (98-107); Globulin 2.5 g/dL (1.3-4.6); Glomerular Filtration Rate 59.9 mL/min (90-130); Glucose 134 mg/dL (65-115); Osmolality Calculated 283 mOsm/kg (285-295); Sodium 133 mmol/L (136-145); Total Bilirubin 3.3 mg/dL (0.15-1.2); Total Protein 6.1 g/dL (6.6-8.7)
[2023-08-30 08:51] LABS: Anion Gap 17.6 (5-19); Potassium 6.6 mmol/L (3.5-5.1)
[2023-08-30 09:42] LABS: Slide Review Slide Review Perform; White Blood Count 75.42 10^3/uL (3.29-11.43)
[2023-08-30 09:43] LABS: Absolute Segmented Neutrophil 22.6 10/cmm (1.6-7.1); Band Neutrophils Absolute 1.5 10^3/cmm (0.0-1.2); Eosinophils 0 %; Lymphocytes 26 %; Lymphocytes Absolute 27.9 10^3/cmm (1.2-3.4); Segmented Neutrophils 30 %; Total Cells Counted 100 (0-100)
[2023-08-30 09:44] LABS: Absolute Neutrophil 24.1 10^3/cmm (1.4-6.5); Blastocytes 1 % (0-0); Platelet Estimate Normal (Normal)
--- NOTE | 2023-08-30 11:37 | CT_ITS ---
WS: [id number] CT CHEST, ABDOMEN, AND PELVIS TECHNIQUE: Contrast-enhanced CT of the chest, abdomen, and pelvis with coronal and sagittal reformatt ed images. CLINICAL INFORMATION: ELEVATED BILIRUBIN COMPARISON: 08/15/2023 DLP: [address] scans at [facility] use at least one of these dose optimization techniques: automated e xposure control; mA and/or kV adjustment per patient size (includes targeted exams where dose is matc hed to clinical indication); or iterative reconstruction. CT CHEST: Chronic emphysematous changes. Bibasilar atelectasis. LEFT lower lobe nodule measuring 6 mm appears n ew or progressed since the prior study. Hazy atelectases in the lung bases. Volume loss RIGHT lower l obe with subsegmental atelectasis and air bronchograms is new compared to previous. Noncalcified nodu le RIGHT upper lobe measuring 4 mm. Noncalcified nodule RIGHT lower lobe posteriorly progressed shoaib red to previous measuring 5 mm. A few small nodules in the lingula. Progressive bulky axillary lymphadenopathy. Largest axillary lymph nodes today measure 2.8 cm on the RIGHT compared to subcentimeter previously. Bulky mediastinal, parabronchial hilar and subcarinal lym phadenopathy has significantly progressed. Normal caliber thoracic aorta. Aortic calcification. Progr essed retrocrural and paraesophageal lymphadenopathy. Progressed cardiophrenic lymphadenopathy. Moderate thoracic kyphosis. Chronic anterior wedging in the midthoracic spine is similar to previous. Progressed thoracic inlet and partially visualized supraclavicular and retropectoral lymphadenopathy . CT ABDOMEN AND PELVIS: Hepatomegaly. Splenomegaly. Portal vein and splenic vein are patent. Tiny esophageal hiatal hernia. N ormal gallbladder. Continued marked increase in size of the central mesenteric and peripancreatic lym ph nodes compared to 08/15/2023. Bulky lymph nodes have progressed in size from the recent study. Bulk y celiac, superior mesenteric, and dank hepatis lymph nodes. Bulky para-aortic and retroperitoneal l ymphadenopathy has also progressed. Mild induration in the central mesentery. Progressed retrocrural lymphadenopathy. Bulky common iliac lymphadenopathy has also progressed. Bulky external iliac and com mon femoral lymphadenopathy extending to the pelvis and along the pelvic sidewall has also progressed . For example RIGHT obturator lymph node previously measured 3.3 cm and today measures 4.9 cm. Associat ed symmetric compression of the bladder dome due to bilateral obturator lymphadenopathy. This is new compared to previous. Bulky inguinal lymphadenopathy. Normal caliber abdominal aorta. Artery calcification. Adrenal glands are normal. Perinephric edema conte s progressed and can be seen with renal insufficiency. No hydronephrosis. Large RIGHT lower pole akshat l cyst measuring 11.2 cm. Smaller bilateral renal cysts. Bulky retroperitoneal lymph nodes for example today measure 4.1 cm compared to 2.[address]/CT chest abdpel w/*[id number] IMPRESSION: 1. Markedly progressive adenopathy in the chest abdomen pelvis compared to 07/18 described above. 2. Markedly increased lymphadenopathy in the dank hepatis and upper abdomen a long the celiac and SMA likely account for elevated biliary function studies. N o intrahepatic biliary ductal dilatation. 3. Diffuse bulky para-aortic and retroperitoneal lymphadenopathy has markedly progressed. Bulky pelvic lymphadenopathy has markedly progressed with compressi on of the bladder. 4. Mediastinal axillary and retrocrural lymphadenopathy has markedly progresse d. 5. A few new or progressed subcentimeter pulmonary nodules. Discussed with Dr. Pandey 08/30/2023 12:41 PM
[2023-08-30] MEDS: iohexol 350 mg/mL 500 mL Btl (per mL) IV (11:38)
[2023-08-30 13:03] LABS: Anion Gap 14.5 (5-19); Blood Urea Nitrogen 29 mg/dL (8-23); Calcium 9.1 mg/dL (8.5-10.5); Carbon Dioxide 24 mmol/L (22-29); Chloride 100 mmol/L (98-107); Creatinine Clr Calc Pharmacy 68.0164; Glomerular Filtration Rate 54.6 mL/min (90-130); Glucose 104 mg/dL (65-115); Osmolality Calculated 282 mOsm/kg (285-295); Potassium 5.5 mmol/L (3.5-5.1); Sodium 133 mmol/L (136-145)
[2023-09-06 14:27] LABS: Hematocrit 40.9 % (37-53); Mean Corpuscular HGB Conc 33.3 g/dL (30-55); Mean Corpuscular Hemoglobin 30.2 pg (27-33); Mean Corpuscular Volume 90.7 fl (82-101); Mean Platelet Volume 9.9 fL (7.4-10.4); Platelet Count 221 10^3/cmm (157-399); Red Blood Count 4.51 10^6/uL (3.85-5.65); Red Cell Distribution Width 17.6 % (12.1-15.1)
[2023-09-06 14:50] LABS: Alanine Aminotransferase 21 U/L (0-41); Albumin Level 3.7 g/dL (3.5-5.2); Alkaline Phosphatase 319 U/L (40-130); Anion Gap 15.3 (5-19); Aspartate Amino Transferase 37 U/L (0-40); Blood Urea Nitrogen 26 mg/dL (8-23); Carbon Dioxide 25 mmol/L (22-29); Chloride 106 mmol/L (98-107); Creatinine Clr Calc Pharmacy 88.4213; Globulin 2.1 g/dL (1.3-4.6); Glomerular Filtration Rate 73.9 mL/min (90-130); Glucose 136 mg/dL (65-115); Osmolality Calculated 299 mOsm/kg (285-295); Potassium 5.3 mmol/L (3.5-5.1); Sodium 141 mmol/L (136-145); Total Bilirubin 1.3 mg/dL (0.15-1.2); Total Protein 5.8 g/dL (6.6-8.7)
[2023-09-06 15:06] LABS: White Blood Count 39.18 10^3/uL (3.29-11.43)
[2023-09-06 15:40] LABS: Slide Review Slide Review Perform
[2023-09-06 15:41] LABS: Absolute Segmented Neutrophil 10.6 10/cmm (1.6-7.1); Anisocytosis Trace; Band Neutrophils Absolute 0.4 10^3/cmm (0.0-1.2); Eosinophils 0 %; Lymphocytes 50 %; Lymphocytes Absolute 25.5 10^3/cmm (1.2-3.4); Monocytes Absolute 2.7 10^3/cmm (0.1-0.6); Platelet Estimate Normal (Normal); Segmented Neutrophils 27 %; Total Cells Counted 100 (0-100)
[2023-09-11 08:39] LABS: Hematocrit 43.1 % (37-53); Mean Corpuscular HGB Conc 31.8 g/dL (30-55); Mean Corpuscular Hemoglobin 29.3 pg (27-33); Mean Corpuscular Volume 92.1 fl (82-101); Mean Platelet Volume 9.8 fL (7.4-10.4); Platelet Count 249 10^3/cmm (157-399); Red Blood Count 4.68 10^6/uL (3.85-5.65); Red Cell Distribution Width 17.2 % (12.1-15.1); White Blood Count 21.39 10^3/uL (3.29-11.43)
[2023-09-11 09:06] LABS: Alanine Aminotransferase 53 U/L (0-41); Albumin Level 3.8 g/dL (3.5-5.2); Alkaline Phosphatase 243 U/L (40-130); Anion Gap 15.7 (5-19); Aspartate Amino Transferase 58 U/L (0-40); Blood Urea Nitrogen 34 mg/dL (8-23); Calcium 8.9 mg/dL (8.5-10.5); Carbon Dioxide 25 mmol/L (22-29); Chloride 105 mmol/L (98-107); Creatinine Clr Calc Pharmacy 89.1267; Globulin 2.4 g/dL (1.3-4.6); Glomerular Filtration Rate 73.9 mL/min (90-130); Glucose 147 mg/dL (65-115); Osmolality Calculated 302 mOsm/kg (285-295); Potassium 4.7 mmol/L (3.5-5.1); Sodium 141 mmol/L (136-145); Total Bilirubin 1.3 mg/dL (0.15-1.2); Total Protein 6.2 g/dL (6.6-8.7)
[2023-09-11 09:47] LABS: Slide Review Slide Review Perform; Total Cells Counted 100 (0-100)
[2023-09-11 09:48] LABS: Absolute Neutrophil 4.9 10^3/cmm (1.4-6.5); Absolute Segmented Neutrophil 4.9 10/cmm (1.6-7.1); Eosinophils 0 %; Lymphocytes 53 %; Lymphocytes Absolute 15.4 10^3/cmm (1.2-3.4); Monocytes Absolute 1.1 10^3/cmm (0.1-0.6); Platelet Estimate Normal (Normal); Segmented Neutrophils 23 %
[2023-09-11 09:49] LABS: Anisocytosis Trace
== END 2023-09-16 23:59 | disposition home or self-care (01) ==
PROVIDERS: Nurse Practitioner Family; PCP Family Medicine; Visit Provider Nurse Practitioner Family
DX: C91.10 Chronic lymphocytic leukemia of B-cell type not having achieved remission (principal); Z53.9 Procedure and treatment not carried out, unspecified reason; Z87.891 Personal history of nicotine dependence; Z79.69 Long term (current) use of other immunomodulators and immunosuppressants
CPT/HCPCS: 36415; 71260; 74177; 80048; 80053; 85007; 85025; 99214; 99215; Q9967

== ENCOUNTER 2023-10-01 08:15 | Oncology outpatient (recurring) (ONCR) | payer MEDICARE, SELFPAY ==
[2023-09-18 09:30] LABS: Hematocrit 46.4 % (37-53); Mean Corpuscular HGB Conc 31.9 g/dL (30-55); Mean Corpuscular Volume 93.9 fl (82-101); Mean Platelet Volume 9.3 fL (7.4-10.4); Platelet Count 271 10^3/cmm (157-399); Red Blood Count 4.94 10^6/uL (3.85-5.65); Red Cell Distribution Width 16.2 % (12.1-15.1); White Blood Count 10.48 10^3/uL (3.29-11.43)
[2023-09-18 09:46] LABS: Alanine Aminotransferase 70 U/L (0-41); Albumin Level 4.2 g/dL (3.5-5.2); Alkaline Phosphatase 170 U/L (40-130); Anion Gap 15.9 (5-19); Aspartate Amino Transferase 53 U/L (0-40); Blood Urea Nitrogen 25 mg/dL (8-23); Calcium 9.1 mg/dL (8.5-10.5); Carbon Dioxide 28 mmol/L (22-29); Chloride 101 mmol/L (98-107); Globulin 2.3 g/dL (1.3-4.6); Glomerular Filtration Rate 83.4 mL/min (90-130); Glucose 134 mg/dL (65-115); Osmolality Calculated 296 mOsm/kg (285-295); Potassium 4.9 mmol/L (3.5-5.1); Sodium 140 mmol/L (136-145); Total Bilirubin 1.1 mg/dL (0.15-1.2); Total Protein 6.5 g/dL (6.6-8.7)
[2023-09-18 10:13] LABS: Slide Review Slide Review Perform
[2023-09-18 10:28] LABS: Absolute Neutrophil 3.7 10^3/cmm (1.4-6.5); Absolute Segmented Neutrophil 3.7 10/cmm (1.6-7.1); Eosinophils 0 %; Lymphocytes 55 %; Lymphocytes Absolute 6.5 10^3/cmm (1.2-3.4); Monocytes Absolute 0.3 10^3/cmm (0.1-0.6); Platelet Estimate Normal (Normal); Segmented Neutrophils 35 %; Total Cells Counted 100 (0-100)
[2023-09-18 10:29] LABS: Anisocytosis Trace
[2023-09-25 09:44] LABS: Basophils % 0.3 %; Eosinophils % 0.1 %; Hematocrit 44.4 % (37-53); Lymphocytes # 2.1 10^3/uL (0.8-4.8); Lymphocytes % 30.8 %; Mean Corpuscular HGB Conc 31.1 g/dL (30-55); Mean Corpuscular Hemoglobin 29.9 pg (27-33); Mean Corpuscular Volume 96.3 fl (82-101); Mean Platelet Volume 9.5 fL (7.4-10.4); Monocytes % 14.2 %; Neutrophils # 3.76 10^3/uL (1.8-7.7); Neutrophils % 54.3 %; Nucleated Red Blood Cells % 0 %; Platelet Count 241 10^3/cmm (157-399); Red Blood Count 4.61 10^6/uL (3.85-5.65); Red Cell Distribution Width 15.6 % (12.1-15.1); White Blood Count 6.92 10^3/uL (3.29-11.43)
[2023-09-25 10:03] LABS: Alanine Aminotransferase 46 U/L (0-41); Albumin Level 4.1 g/dL (3.5-5.2); Alkaline Phosphatase 138 U/L (40-130); Anion Gap 12.8 (5-19); Aspartate Amino Transferase 32 U/L (0-40); Blood Urea Nitrogen 26 mg/dL (8-23); Calcium 8.9 mg/dL (8.5-10.5); Carbon Dioxide 30 mmol/L (22-29); Chloride 102 mmol/L (98-107); Creatinine Clr Calc Pharmacy 78.0977; Glomerular Filtration Rate 66.2 mL/min (90-130); Glucose 108 mg/dL (65-115); Osmolality Calculated 295 mOsm/kg (285-295); Potassium 4.8 mmol/L (3.5-5.1); Sodium 140 mmol/L (136-145); Total Bilirubin 0.8 mg/dL (0.15-1.2); Total Protein 6.1 g/dL (6.6-8.7)
[2023-10-01] VITALS (10 sets, daily range): BP systolic 101–137; BP diastolic 57–88; PULSE 59–100; RESP 16–18; TEMP 36.1–36.9; O2SAT 91–95
[2023-10-01 08:43] LABS: Basophils % 0.1 %; Hematocrit 44.7 % (37-53); Lymphocytes # 2.3 10^3/uL (0.8-4.8); Lymphocytes % 30.9 %; Mean Corpuscular HGB Conc 31.3 g/dL (30-55); Mean Corpuscular Hemoglobin 29.7 pg (27-33); Mean Corpuscular Volume 94.9 fl (82-101); Mean Platelet Volume 9.8 fL (7.4-10.4); Monocytes # 0.8 10^3/uL (0.2-0.9); Monocytes % 11.2 %; Neutrophils # 4.22 10^3/uL (1.8-7.7); Neutrophils % 57.7 %; Nucleated Red Blood Cells % 0 %; Platelet Count 243 10^3/cmm (157-399); Red Blood Count 4.71 10^6/uL (3.85-5.65); Red Cell Distribution Width 15.3 % (12.1-15.1); White Blood Count 7.32 10^3/uL (3.29-11.43)
[2023-10-01 09:01] LABS: Alanine Aminotransferase 43 U/L (0-41); Albumin Level 4.3 g/dL (3.5-5.2); Alkaline Phosphatase 124 U/L (40-130); Anion Gap 17.5 (5-19); Aspartate Amino Transferase 27 U/L (0-40); Blood Urea Nitrogen 22 mg/dL (8-23); Calcium 9.1 mg/dL (8.5-10.5); Carbon Dioxide 25 mmol/L (22-29); Chloride 101 mmol/L (98-107); Creatinine Clr Calc Pharmacy 87.6715; Globulin 2.1 g/dL (1.3-4.6); Glomerular Filtration Rate 73.9 mL/min (90-130); Glucose 125 mg/dL (65-115); Lactate Dehydrogenase 147 U/L (135-225); Osmolality Calculated 293 mOsm/kg (285-295); Potassium 4.5 mmol/L (3.5-5.1); Sodium 139 mmol/L (136-145); Total Bilirubin 0.9 mg/dL (0.15-1.2); Total Protein 6.4 g/dL (6.6-8.7); Uric Acid 3.8 mg/dL (3.4-7.0)
[2023-10-01] MEDS: acetaminophen 325 mg Tablet 650 MG PO (10:01)
[2023-10-01] MEDS: diphenhydrAMINE 50 mg/mL SDV 1mL 25 MG IVP (10:01)
[2023-10-01] MEDS: sodium chloride 0.9% 500 ML 75 ML IV (10:03)
[2023-10-01] MEDS: rituximab-abbs 500 MG, rituximab-abbs 350 MG in sodium chloride 0.9% 500 ML 38.2 MG IV (10:50)
[2023-10-01] MEDS: methylPREDNISolone sod succ 125 mg/2 mL INJ 60 MG IVP (13:58)
== END 2023-10-17 23:59 | disposition home or self-care (01) ==
PROVIDERS: Internal Medicine Medical Oncology; Nurse Practitioner Family; PCP Family Medicine; Visit Provider Nurse Practitioner Family
DX: C91.10 Chronic lymphocytic leukemia of B-cell type not having achieved remission (principal); Z53.9 Procedure and treatment not carried out, unspecified reason; Z51.12 Encounter for antineoplastic immunotherapy; Z79.899 Other long term (current) drug therapy; Z87.891 Personal history of nicotine dependence; Z79.69 Long term (current) use of other immunomodulators and immunosuppressants
CPT/HCPCS: 36415; 80053; 83615; 84550; 85007; 85025; 96375; 96413; 96415; 99214; J1200; J2919; J7040; Q5115

== ENCOUNTER 2023-10-29 07:09 | Oncology outpatient (recurring) (ONCR) | payer MEDICARE, SELFPAY ==
[2023-10-29] VITALS (8 sets, daily range): BP systolic 124–164; BP diastolic 65–98; PULSE 68–96; RESP 16; TEMP 36.4–36.8; O2SAT 92–95
[2023-10-29 07:47] LABS: Basophils % 0.2 %; Eosinophils % 0.5 %; Hematocrit 45.8 % (37-53); Lymphocytes # 1.7 10^3/uL (0.8-4.8); Lymphocytes % 42.6 %; Mean Corpuscular HGB Conc 33.4 g/dL (30-55); Mean Corpuscular Hemoglobin 30.6 pg (27-33); Mean Corpuscular Volume 91.6 fl (82-101); Mean Platelet Volume 8.8 fL (7.4-10.4); Monocytes # 0.6 10^3/uL (0.2-0.9); Monocytes % 13.5 %; Neutrophils # 1.75 10^3/uL (1.8-7.7); Nucleated Red Blood Cells % 0 %; Platelet Count 331 10^3/cmm (157-399); Red Cell Distribution Width 14.6 % (12.1-15.1); White Blood Count 4.08 10^3/uL (3.29-11.43)
[2023-10-29 08:02] LABS: Alanine Aminotransferase 14 U/L (0-41); Albumin Level 4.4 g/dL (3.5-5.2); Alkaline Phosphatase 113 U/L (40-130); Anion Gap 15.9 (5-19); Aspartate Amino Transferase 14 U/L (0-40); Blood Urea Nitrogen 20 mg/dL (8-23); Calcium 9.3 mg/dL (8.5-10.5); Carbon Dioxide 26 mmol/L (22-29); Chloride 102 mmol/L (98-107); Globulin 2.7 g/dL (1.3-4.6); Glomerular Filtration Rate 73.9 mL/min (90-130); Glucose 142 mg/dL (65-115); Osmolality Calculated 295 mOsm/kg (285-295); Potassium 3.9 mmol/L (3.5-5.1); Sodium 140 mmol/L (136-145); Total Bilirubin 0.6 mg/dL (0.15-1.2); Total Protein 7.1 g/dL (6.6-8.7)
[2023-10-29 08:54] LABS: Lactate Dehydrogenase 132 U/L (135-225)
[2023-10-29] MEDS: sodium chloride 0.9% 500 ML 75 ML IV (10:19)
[2023-10-29] MEDS: acetaminophen 325 mg Tablet 650 MG PO (10:20)
[2023-10-29] MEDS: diphenhydrAMINE 50 mg/mL SDV 1mL 25 MG IVP (10:20)
[2023-10-29] MEDS: methylPREDNISolone sod succ 125 mg/2 mL INJ 60 MG IVP (11:51)
== END 2023-10-29 23:59 | disposition home or self-care (01) ==
PROVIDERS: Internal Medicine Medical Oncology; PCP Family Medicine; Visit Provider Nurse Practitioner Family
DX: Z51.12 Encounter for antineoplastic immunotherapy (principal); C91.10 Chronic lymphocytic leukemia of B-cell type not having achieved remission; Z79.899 Other long term (current) drug therapy; Z87.891 Personal history of nicotine dependence; Z79.69 Long term (current) use of other immunomodulators and immunosuppressants; Z79.52 Long term (current) use of systemic steroids
CPT/HCPCS: 80053; 83615; 85025; 96375; 96413; 96415; 99214; J1200; J2919; J7040; J9312

== ENCOUNTER 2023-11-15 09:39 | Oncology outpatient (recurring) (ONCR) | payer MEDICARE, SELFPAY ==
[2023-11-15 09:56] LABS: Basophils % 0.3 %; Hematocrit 46.4 % (37-53); Lymphocytes # 2.1 10^3/uL (0.8-4.8); Lymphocytes % 28.1 %; Mean Corpuscular Hemoglobin 30.7 pg (27-33); Mean Corpuscular Volume 93.2 fl (82-101); Mean Platelet Volume 9.1 fL (7.4-10.4); Monocytes # 0.9 10^3/uL (0.2-0.9); Monocytes % 11.9 %; Neutrophils # 4.36 10^3/uL (1.8-7.7); Neutrophils % 59.3 %; Nucleated Red Blood Cells % 0 %; Platelet Count 271 10^3/cmm (157-399); Red Blood Count 4.98 10^6/uL (3.85-5.65); Red Cell Distribution Width 14.9 % (12.1-15.1); White Blood Count 7.34 10^3/uL (3.29-11.43)
[2023-11-15 10:15] LABS: Alanine Aminotransferase 15 U/L (0-41); Albumin Level 4.2 g/dL (3.5-5.2); Alkaline Phosphatase 101 U/L (40-130); Anion Gap 17.9 (5-19); Aspartate Amino Transferase 13 U/L (0-40); Blood Urea Nitrogen 20 mg/dL (8-23); Calcium 9.1 mg/dL (8.5-10.5); Carbon Dioxide 27 mmol/L (22-29); Chloride 103 mmol/L (98-107); Globulin 2.5 g/dL (1.3-4.6); Glomerular Filtration Rate 73.9 mL/min (90-130); Glucose 112 mg/dL (65-115); Osmolality Calculated 299 mOsm/kg (285-295); Potassium 4.9 mmol/L (3.5-5.1); Sodium 143 mmol/L (136-145); Total Bilirubin 0.6 mg/dL (0.15-1.2); Total Protein 6.7 g/dL (6.6-8.7)
== END 2023-11-17 23:59 | disposition home or self-care (01) ==
PROVIDERS: PCP Family Medicine; Visit Provider Nurse Practitioner Family
DX: Z51.12 Encounter for antineoplastic immunotherapy (principal); C91.10 Chronic lymphocytic leukemia of B-cell type not having achieved remission; Z53.9 Procedure and treatment not carried out, unspecified reason; Z79.899 Other long term (current) drug therapy; Z87.891 Personal history of nicotine dependence; Z79.69 Long term (current) use of other immunomodulators and immunosuppressants
CPT/HCPCS: 36415; 80053; 85025

== ENCOUNTER 2023-11-26 07:18 | Oncology outpatient (recurring) (ONCR) | payer MEDICARE, SELFPAY ==
[2023-11-26 08:16] LABS: Basophils % 0.2 %; Hematocrit 44.5 % (37-53); Lymphocytes # 1.7 10^3/uL (0.8-4.8); Lymphocytes % 28.6 %; Mean Corpuscular HGB Conc 32.6 g/dL (30-55); Mean Corpuscular Hemoglobin 30.7 pg (27-33); Mean Corpuscular Volume 94.3 fl (82-101); Mean Platelet Volume 9.3 fL (7.4-10.4); Monocytes # 0.6 10^3/uL (0.2-0.9); Monocytes % 9.9 %; Neutrophils % 60.8 %; Nucleated Red Blood Cells % 0 %; Platelet Count 174 10^3/cmm (157-399); Red Blood Count 4.72 10^6/uL (3.85-5.65); White Blood Count 5.76 10^3/uL (3.29-11.43)
[2023-11-26 08:37] LABS: Alanine Aminotransferase 16 U/L (0-41); Albumin Level 4.1 g/dL (3.5-5.2); Alkaline Phosphatase 114 U/L (40-130); Aspartate Amino Transferase 16 U/L (0-40); Blood Urea Nitrogen 20 mg/dL (8-23); Calcium 8.9 mg/dL (8.5-10.5); Carbon Dioxide 26 mmol/L (22-29); Chloride 104 mmol/L (98-107); Globulin 2.4 g/dL (1.3-4.6); Glomerular Filtration Rate 95.6 mL/min (90-130); Glucose 168 mg/dL (65-115); Osmolality Calculated 298 mOsm/kg (285-295); Sodium 141 mmol/L (136-145); Total Bilirubin 0.4 mg/dL (0.15-1.2); Total Protein 6.5 g/dL (6.6-8.7)
[2023-11-26 08:40] LABS: Anion Gap 15.1 (5-19); Potassium 4.1 mmol/L (3.5-5.1)
[2023-11-26 09:05] VITALS: BP 143/58; PULSE 65; RESP 16; TEMP 36.7; O2SAT 97
[2023-11-26] MEDS: sodium chloride 0.9% 500 ML 75 ML IV (09:17)
[2023-11-26] MEDS: acetaminophen 325 mg Tablet 650 MG PO (09:18)
[2023-11-26] MEDS: diphenhydrAMINE 50 mg/mL SDV 1mL 25 MG IVP (09:18)
[2023-11-26] MEDS: methylPREDNISolone sod succ 125 mg/2 mL INJ 60 MG IVP (09:20)
[2023-11-26 10:00] VITALS: BP 146/72; PULSE 52; RESP 16; TEMP 36.8; O2SAT 96
[2023-11-26 10:30] VITALS: BP 136/68; PULSE 56; RESP 16; TEMP 36.8; O2SAT 95
[2023-11-26 11:00] VITALS: BP 126/77; PULSE 56; RESP 16; TEMP 36.9; O2SAT 97
[2023-11-26 11:30] VITALS: BP 134/80; PULSE 53; RESP 16; TEMP 36.6; O2SAT 95
[2023-11-26 13:25] VITALS: BP 151/80; PULSE 57; RESP 18; TEMP 36.7; O2SAT 94
== END 2023-11-26 23:59 | disposition home or self-care (01) ==
PROVIDERS: PCP Family Medicine; Visit Provider Nurse Practitioner Family
DX: Z51.12 Encounter for antineoplastic immunotherapy (principal); C91.10 Chronic lymphocytic leukemia of B-cell type not having achieved remission; Z79.899 Other long term (current) drug therapy; Z87.891 Personal history of nicotine dependence; Z79.69 Long term (current) use of other immunomodulators and immunosuppressants
CPT/HCPCS: 80053; 85025; 96375; 96413; 96415; 99214; J1200; J2919; J7040; J9312

== ENCOUNTER 2023-12-24 07:16 | Oncology outpatient (recurring) (ONCR) | payer MEDICARE, SELFPAY ==
[2023-12-24 08:00] LABS: Basophils % 0.2 %; Hematocrit 46.7 % (37-53); Lymphocytes # 1.6 10^3/uL (0.8-4.8); Lymphocytes % 38.1 %; Mean Corpuscular HGB Conc 33.6 g/dL (30-55); Mean Corpuscular Hemoglobin 31.3 pg (27-33); Mean Platelet Volume 9.6 fL (7.4-10.4); Monocytes # 0.5 10^3/uL (0.2-0.9); Monocytes % 12.5 %; Neutrophils # 1.99 10^3/uL (1.8-7.7); Neutrophils % 48.7 %; Nucleated Red Blood Cells % 0 %; Platelet Count 194 10^3/cmm (157-399); Red Blood Count 5.02 10^6/uL (3.85-5.65); Red Cell Distribution Width 14.6 % (12.1-15.1); White Blood Count 4.09 10^3/uL (3.29-11.43)
[2023-12-24 08:16] LABS: Alanine Aminotransferase 17 U/L (0-41); Albumin Level 4.4 g/dL (3.5-5.2); Alkaline Phosphatase 101 U/L (40-130); Anion Gap 14.2 (5-19); Aspartate Amino Transferase 20 U/L (0-40); Blood Urea Nitrogen 13 mg/dL (8-23); Calcium 8.9 mg/dL (8.5-10.5); Carbon Dioxide 27 mmol/L (22-29); Chloride 101 mmol/L (98-107); Globulin 2.2 g/dL (1.3-4.6); Glomerular Filtration Rate 73.9 mL/min (90-130); Glucose 150 mg/dL (65-115); Osmolality Calculated 289 mOsm/kg (285-295); Potassium 4.2 mmol/L (3.5-5.1); Sodium 138 mmol/L (136-145); Total Bilirubin 0.6 mg/dL (0.15-1.2); Total Protein 6.6 g/dL (6.6-8.7)
[2023-12-24 09:25] VITALS: BP 143/82; PULSE 65; RESP 16; TEMP 36.4; O2SAT 97
[2023-12-24] MEDS: sodium chloride 0.9% 500 ML 75 ML IV (09:34)
[2023-12-24] MEDS: acetaminophen 325 mg Tablet 650 MG PO (09:35)
[2023-12-24] MEDS: diphenhydrAMINE 50 mg/mL SDV 1mL 25 MG IVP (09:35)
[2023-12-24] MEDS: methylPREDNISolone sod succ 125 mg/2 mL INJ 60 MG IVP (09:36)
[2023-12-24 10:10] VITALS: BP 138/78; PULSE 62; RESP 16; TEMP 36.6; O2SAT 95
[2023-12-24] MEDS: RITUXIMAB IV (10:10)
[2023-12-24] MEDS: SODIUM CHLORIDE 0.9% IV (10:10)
[2023-12-24 10:40] VITALS: BP 142/78; PULSE 62; RESP 16; TEMP 36.4; O2SAT 95
[2023-12-24 11:10] VITALS: BP 147/88; PULSE 63; RESP 16; TEMP 36.2; O2SAT 95
[2023-12-24 11:40] VITALS: BP 142/82; PULSE 62; RESP 16; TEMP 36.4; O2SAT 96
== END 2023-12-24 23:59 | disposition home or self-care (01) ==
PROVIDERS: Nurse Practitioner Family; PCP Family Medicine; Visit Provider Internal Medicine Hematology & Oncology
DX: Z51.12 Encounter for antineoplastic immunotherapy (principal); C91.10 Chronic lymphocytic leukemia of B-cell type not having achieved remission; Z79.899 Other long term (current) drug therapy; Z87.891 Personal history of nicotine dependence; Z79.69 Long term (current) use of other immunomodulators and immunosuppressants
CPT/HCPCS: 80053; 85025; 96375; 96413; 96415; 99214; J1200; J2919; J7040; J9312

== ENCOUNTER 2024-01-08 09:51 | Oncology outpatient (recurring) (ONCR) | payer MEDICARE, SELFPAY ==
[2024-01-08 10:04] LABS: Basophils % 0.1 %; Hematocrit 44.7 % (37-53); Lymphocytes % 28.3 %; Mean Corpuscular HGB Conc 33.8 g/dL (30-55); Mean Corpuscular Hemoglobin 31.6 pg (27-33); Mean Corpuscular Volume 93.5 fl (82-101); Mean Platelet Volume 9.4 fL (7.4-10.4); Monocytes # 0.8 10^3/uL (0.2-0.9); Monocytes % 11.3 %; Neutrophils % 59.9 %; Nucleated Red Blood Cells % 0 %; Platelet Count 213 10^3/cmm (157-399); Red Blood Count 4.78 10^6/uL (3.85-5.65); Red Cell Distribution Width 14.3 % (12.1-15.1); White Blood Count 7.02 10^3/uL (3.29-11.43)
[2024-01-08 10:20] LABS: Alanine Aminotransferase 16 U/L (0-41); Albumin Level 4.4 g/dL (3.5-5.2); Alkaline Phosphatase 97 U/L (40-130); Anion Gap 14.3 (5-19); Aspartate Amino Transferase 15 U/L (0-40); Blood Urea Nitrogen 12 mg/dL (8-23); Calcium 8.7 mg/dL (8.5-10.5); Carbon Dioxide 28 mmol/L (22-29); Chloride 103 mmol/L (98-107); Globulin 2.2 g/dL (1.3-4.6); Glomerular Filtration Rate 83.4 mL/min (90-130); Glucose 123 mg/dL (65-115); Osmolality Calculated 293 mOsm/kg (285-295); Potassium 4.3 mmol/L (3.5-5.1); Sodium 141 mmol/L (136-145); Total Bilirubin 0.5 mg/dL (0.15-1.2); Total Protein 6.6 g/dL (6.6-8.7)
== END 2024-01-17 23:59 | disposition home or self-care (01) ==
PROVIDERS: Nurse Practitioner Family; PCP Family Medicine; Visit Provider Internal Medicine Hematology & Oncology
DX: C91.10 Chronic lymphocytic leukemia of B-cell type not having achieved remission (principal)
CPT/HCPCS: 36415; 80053; 85025

== ENCOUNTER 2024-01-21 07:18 | Oncology outpatient (recurring) (ONCR) | payer MEDICARE, SELFPAY ==
[2024-01-21 08:24] LABS: Basophils % 0.1 %; Hematocrit 46.6 % (37-53); Lymphocytes # 1.6 10^3/uL (0.8-4.8); Mean Corpuscular HGB Conc 33.7 g/dL (30-55); Mean Corpuscular Hemoglobin 31.3 pg (27-33); Mean Corpuscular Volume 92.8 fl (82-101); Mean Platelet Volume 9.5 fL (7.4-10.4); Monocytes # 0.7 10^3/uL (0.2-0.9); Monocytes % 9.6 %; Neutrophils # 4.43 10^3/uL (1.8-7.7); Neutrophils % 65.9 %; Nucleated Red Blood Cells % 0 %; Platelet Count 168 10^3/cmm (157-399); Red Blood Count 5.02 10^6/uL (3.85-5.65); Red Cell Distribution Width 13.5 % (12.1-15.1); White Blood Count 6.74 10^3/uL (3.29-11.43)
[2024-01-21 08:44] LABS: Alanine Aminotransferase 17 U/L (0-41); Albumin Level 4.5 g/dL (3.5-5.2); Alkaline Phosphatase 94 U/L (40-130); Anion Gap 16.5 (5-19); Aspartate Amino Transferase 16 U/L (0-40); Blood Urea Nitrogen 13 mg/dL (8-23); Calcium 9.1 mg/dL (8.5-10.5); Carbon Dioxide 26 mmol/L (22-29); Chloride 105 mmol/L (98-107); Creatinine Clr Calc Pharmacy 99.8835; Globulin 2.3 g/dL (1.3-4.6); Glomerular Filtration Rate 83.4 mL/min (90-130); Glucose 150 mg/dL (65-115); Osmolality Calculated 299 mOsm/kg (285-295); Potassium 4.5 mmol/L (3.5-5.1); Sodium 143 mmol/L (136-145); Total Bilirubin 0.7 mg/dL (0.15-1.2); Total Protein 6.8 g/dL (6.6-8.7)
[2024-01-21 09:20] LABS: Lactate Dehydrogenase 153 U/L (135-225)
[2024-01-21] MEDS: acetaminophen 325 mg Tablet 650 MG PO (09:40)
[2024-01-21] MEDS: diphenhydrAMINE 50 mg/mL SDV 1mL 25 MG IVP (09:40)
[2024-01-21] MEDS: sodium chloride 0.9% 500 ML 75 ML IV (09:41)
[2024-01-21] MEDS: methylPREDNISolone sod succ 125 mg/2 mL INJ 60 MG IVP (09:44)
[2024-01-21 10:10] VITALS: BP 128/84; PULSE 74; RESP 16; TEMP 36.2; O2SAT 96
[2024-01-21] MEDS: SODIUM CHLORIDE 0.9% IV (10:10)
[2024-01-21] MEDS: RITUXIMAB IV (10:10)
[2024-01-21 10:40] VITALS: BP 115/80; PULSE 63; RESP 16; TEMP 36.2; O2SAT 96
[2024-01-21 11:10] VITALS: BP 126/76; PULSE 69; RESP 16; TEMP 35.7; O2SAT 97
[2024-01-21 11:40] VITALS: BP 113/71; PULSE 68; RESP 16; TEMP 35.8; O2SAT 96
[2024-01-21 14:10] VITALS: BP 150/89; PULSE 73; RESP 16; TEMP 36.3; O2SAT 95
== END 2024-01-21 23:59 | disposition home or self-care (01) ==
PROVIDERS: Nurse Practitioner Family; PCP Family Medicine; Visit Provider Internal Medicine Hematology & Oncology
DX: C91.10 Chronic lymphocytic leukemia of B-cell type not having achieved remission (principal); Z51.12 Encounter for antineoplastic immunotherapy; Z79.899 Other long term (current) drug therapy; Z87.891 Personal history of nicotine dependence; Z79.69 Long term (current) use of other immunomodulators and immunosuppressants; R16.1 Splenomegaly, not elsewhere classified
CPT/HCPCS: 80053; 83615; 85025; 96375; 96413; 96415; 99214; J1200; J2919; J7040; J9312

== ENCOUNTER 2024-02-18 08:07 | Oncology outpatient (recurring) (ONCR) | payer MEDICARE, SELFPAY ==
[2024-02-18 08:33] LABS: Basophils % 0.2 %; Hematocrit 46.7 % (37-53); Lymphocytes # 1.5 10^3/uL (0.8-4.8); Lymphocytes % 28.9 %; Mean Corpuscular HGB Conc 33.4 g/dL (30-55); Mean Corpuscular Hemoglobin 31.6 pg (27-33); Mean Corpuscular Volume 94.5 fl (82-101); Mean Platelet Volume 9.3 fL (7.4-10.4); Monocytes # 0.5 10^3/uL (0.2-0.9); Monocytes % 9.2 %; Neutrophils # 3.11 10^3/uL (1.8-7.7); Neutrophils % 61.1 %; Nucleated Red Blood Cells % 0 %; Platelet Count 218 10^3/cmm (157-399); Red Blood Count 4.94 10^6/uL (3.85-5.65); Red Cell Distribution Width 13.4 % (12.1-15.1); White Blood Count 5.09 10^3/uL (3.29-11.43)
[2024-02-18 08:54] LABS: Alanine Aminotransferase 14 U/L (0-41); Albumin Level 4.6 g/dL (3.5-5.2); Alkaline Phosphatase 101 U/L (40-130); Aspartate Amino Transferase 14 U/L (0-40); Blood Urea Nitrogen 15 mg/dL (8-23); Calcium 9.4 mg/dL (8.5-10.5); Carbon Dioxide 26 mmol/L (22-29); Chloride 102 mmol/L (98-107); Creatinine Clr Calc Pharmacy 89.4804; Globulin 2.4 g/dL (1.3-4.6); Glucose 150 mg/dL (65-115); Osmolality Calculated 296 mOsm/kg (285-295); Sodium 141 mmol/L (136-145); Total Bilirubin 0.7 mg/dL (0.15-1.2); Uric Acid 6.8 mg/dL (3.4-7.0)
[2024-02-18 08:56] LABS: Anion Gap 16.7 (5-19); Lactate Dehydrogenase 162 U/L (135-225); Potassium 3.7 mmol/L (3.5-5.1)
[2024-02-18] MEDS: acetaminophen 325 mg Tablet 650 MG PO (10:06)
[2024-02-18] MEDS: methylPREDNISolone sod succ 125 mg/2 mL INJ 60 MG IVP (10:07)
[2024-02-18] MEDS: diphenhydrAMINE 50 mg/mL SDV 1mL 25 MG IVP (10:09)
[2024-02-18] MEDS: SODIUM CHLORIDE 0.9% IV (10:56)
[2024-02-18] MEDS: RITUXIMAB IV (10:56)
[2024-02-18 11:01] VITALS: BP 118/76; PULSE 50; RESP 18; TEMP 36.7; O2SAT 93
[2024-02-18 11:30] VITALS: BP 125/76; PULSE 50; RESP 18; TEMP 36.4; O2SAT 95
[2024-02-18 12:00] VITALS: BP 128/82; PULSE 62; RESP 18; TEMP 37.3; O2SAT 94
[2024-02-18 12:33] VITALS: BP 131/86; PULSE 57; RESP 17; TEMP 36.5; O2SAT 97
[2024-02-18 14:27] VITALS: BP 144/88; PULSE 73; RESP 16; TEMP 36.6; O2SAT 93
== END 2024-02-18 23:59 | disposition home or self-care (01) ==
PROVIDERS: Internal Medicine Hematology & Oncology; PCP Family Medicine; Visit Provider Nurse Practitioner Family
DX: C91.10 Chronic lymphocytic leukemia of B-cell type not having achieved remission (principal); Z79.899 Other long term (current) drug therapy; Z87.891 Personal history of nicotine dependence; Z79.69 Long term (current) use of other immunomodulators and immunosuppressants; Z51.12 Encounter for antineoplastic immunotherapy
CPT/HCPCS: 80053; 83615; 84550; 85025; 96375; 96413; 96415; 99214; J1200; J2919; J7040; J9312

== ENCOUNTER 2024-03-17 09:18 | Oncology outpatient (recurring) (ONCR) | payer MEDICARE, SELFPAY ==
[2024-03-17 11:37] LABS: Basophils % 0.2 %; Eosinophils % 0.2 %; Hematocrit 44.6 % (37-53); Lymphocytes # 1.7 10^3/uL (0.8-4.8); Lymphocytes % 27.1 %; Mean Corpuscular HGB Conc 33.6 g/dL (30-55); Mean Corpuscular Hemoglobin 32.6 pg (27-33); Mean Platelet Volume 9.2 fL (7.4-10.4); Monocytes # 0.6 10^3/uL (0.2-0.9); Monocytes % 9.7 %; Neutrophils # 3.86 10^3/uL (1.8-7.7); Neutrophils % 62.3 %; Nucleated Red Blood Cells % 0 %; Platelet Count 178 10^3/cmm (157-399); Red Cell Distribution Width 13.2 % (12.1-15.1); White Blood Count 6.19 10^3/uL (3.29-11.43)
[2024-03-17 11:56] LABS: Alanine Aminotransferase 18 U/L (0-41); Albumin Level 4.4 g/dL (3.5-5.2); Alkaline Phosphatase 100 U/L (40-130); Aspartate Amino Transferase 14 U/L (0-40); Blood Urea Nitrogen 18 mg/dL (8-23); Calcium 9.3 mg/dL (8.5-10.5); Carbon Dioxide 28 mmol/L (22-29); Chloride 101 mmol/L (98-107); Creatinine Clr Calc Pharmacy 83.4008; Globulin 2.4 g/dL (1.3-4.6); Glucose 124 mg/dL (65-115); Lactate Dehydrogenase 128 U/L (135-225); Osmolality Calculated 293 mOsm/kg (285-295); Sodium 140 mmol/L (136-145); Total Bilirubin 0.7 mg/dL (0.15-1.2); Total Protein 6.8 g/dL (6.6-8.7)
== END 2024-03-18 23:59 | disposition home or self-care (01) ==
PROVIDERS: Nurse Practitioner Family; PCP Family Medicine; Visit Provider Internal Medicine Medical Oncology
DX: C91.10 Chronic lymphocytic leukemia of B-cell type not having achieved remission (principal)
CPT/HCPCS: 36415; 80053; 83615; 85025; 99214

== ENCOUNTER 2024-04-14 10:00 | Oncology outpatient (recurring) (ONCR) | payer MEDICARE, SELFPAY ==
--- NOTE | 2024-04-08 11:00 | CTR_ITS ---
PROCEDURE INFORMATION: Exam: CT Chest With Contrast; Diagnostic Exam date and time: 04/08/2024 10:58 AM Age: 69 years old Clinical indication: Condition or disease; Other: Leukemia; Additional info: Surveillance TECHNIQUE: Imaging protocol: Diagnostic computed tomography of the chest with contrast. Radiation optimization: All CT scans at this facility use at least one of these dose optimization techniques: automated exposure control; mA and/or kV adjustment per patient size (includes targeted exams where dose is matched to clinical indication); or iterative reconstruction. Contrast material: OMNI 350; Contrast volume: 100 ml; Contrast route: INTRAVENOUS (IV); COMPARISON: CT chest abdpel w/*[id number] 08/30/2023 11:31 AM RADIATION DOSE METRICS: Total DLP (mGy-cm): 1668.88 FINDINGS: Lungs: Stable mild centrilobular emphysema. The previously identified 6 mm noncalcified nodule in the left lower lobe has resolved. The previously identified 4 mm nodule in the right upper lobe has resolved. The 5 mm nodule in the right lower lobe has resolved. The tiny nodular densities in the left lingula are no longer identified. Minor pleural-based atelectasis of the left costophrenic sulcus. Pleural spaces: Unremarkable. No pneumothorax. No pleural effusion. Heart: Unremarkable. No cardiomegaly. No pericardial effusion. Coronary arteries: Calcified coronary artery disease. Lymph nodes: The bulky bilateral axillary adenopathy, mediastinal adenopathy and hilar adenopathy has all resolved. Vasculature: Unremarkable. No aortic aneurysm. Bones/joints: No acute osseous lesions. There are multilevel chronic degenerative changes throughout the visualized thoracic spine. Soft tissues: Unremarkable. COMMENTS: The presence of pulmonary emphysema on CT is an independent risk factor for lung cancer. In the absence of a history or active diagnosis of lung cancer, it is recommended that this patient with emphysema be evaluated for enrollment in a low dose CT lung cancer screening program. PROCEDURE INFORMATION: Exam: CT Abdomen And Pelvis With Contrast Exam date and time: 04/08/2024 10:58 AM Age: 69 years old Clinical indication: Condition or disease; Other: Leukemia; Additional info: Surveillance TECHNIQUE: Imaging protocol: Computed tomography of the abdomen and pelvis with contrast. Radiation optimization: All CT scans at this facility use at least one of these dose optimization techniques: automated exposure control; mA and/or kV adjustment per patient size (includes targeted exams where dose is matched to clinical indication); or iterative reconstruction. Contrast material: OMNI 350; Contrast volume: 100 ml; Contrast route: INTRAVENOUS (IV); COMPARISON: CT chest abdpel w/*[id number] 08/30/2023 11:31 AM RADIATION DOSE METRICS: Total DLP (mGy-cm): 1668.88 FINDINGS: Liver: At the time of the previous exam, the liver was significantly enlarged measuring 25 cm. On the current study the liver measures about 18 cm. No focal liver lesions identified. Gallbladder and biliary ducts: The gallbladder is unremarkable with no calcified stones visualized and no strandy inflammatory changes surrounding the gallbladder. Pancreas: The pancreas is normal in appearance. No evidence of pancreatic ductal dilatation. Spleen: There was significant splenomegaly at the time of the previous exam with the spleen measuring up to 23 cm. There is persistent splenomegaly but the spleen has decreased in size and now measures 14.2 cm. Adrenal glands: The adrenal glands are stable. Kidneys and ureters: No evidence of hydronephrosis or nephroureteral calculi. There are stable simple appearing bilateral renal cysts measuring up to 12 cm on the right. Stomach and bowel: The small bowel loops are not thickened and are nondilated. The colon is unremarkable. Appendix: The appendix is not identified, but there are no inflammatory changes in its expected region. Intraperitoneal space: Unremarkable. No free air. No significant fluid collection. Vasculature: Unremarkable. No abdominal aortic aneurysm. Lymph nodes: The bulky adenopathy throughout the abdomen and pelvis and bilateral inguinal regions has all resolved. There are several tiny lymph nodes in the retroperitoneum, likely representing burned out ? old treated lymph nodes. The largest retroperitoneal lymph node measures about 7-8 mm in short axis dimension. Urinary bladder: The urinary bladder is normal in appearance. Reproductive: Unremarkable as visualized. Bones/joints: No acute osseous lesions. There are mild multilevel chronic degenerative changes throughout the spine. Soft tissues: There are fat containing bilateral inguinal hernias. There are fat containing bilateral inguinal hernias. CT/CT chest abdpel w/*[id number] IMPRESSION: 1. Interval resolution of the bulky lymphadenopathy in the mediastinum, bilateral hilar and bilateral axillary regions. 2. Interval resolution of the small noncalcified pulmonary nodules seen at the time of the previous exam. 3. Calcified coronary artery disease. 4. Stable mild centrilobular emphysema and minimal pleural-based atelectasis of the left costophrenic sulcus. IMPRESSION: 1. Significant decrease in the hepatosplenomegaly compared to the prior study. 2. Interval resolution of the bulky adenopathy throughout the abdomen and pelvis and bilateral inguinal regions. 3. Relatively stable bilateral renal cysts.
[2024-04-08] MEDS: iohexol 350 mg/mL 500 mL Btl (per mL) PO (11:07)
[2024-04-08] MEDS: iohexol 350 mg/mL 500 mL Btl (per mL) IV (11:08)
[2024-04-14 10:56] LABS: Basophils % 0.3 %; Eosinophils % 0.2 %; Hematocrit 44.5 % (37-53); Lymphocytes # 1.5 10^3/uL (0.8-4.8); Lymphocytes % 25.2 %; Mean Corpuscular HGB Conc 33.3 g/dL (30-55); Mean Corpuscular Hemoglobin 31.8 pg (27-33); Mean Corpuscular Volume 95.5 fl (82-101); Mean Platelet Volume 9.3 fL (7.4-10.4); Monocytes # 0.6 10^3/uL (0.2-0.9); Neutrophils # 3.65 10^3/uL (1.8-7.7); Neutrophils % 62.6 %; Nucleated Red Blood Cells % 0 %; Platelet Count 217 10^3/cmm (157-399); Red Blood Count 4.66 10^6/uL (3.85-5.65); Red Cell Distribution Width 13.2 % (12.1-15.1); White Blood Count 5.83 10^3/uL (3.29-11.43)
[2024-04-14 11:12] LABS: Alanine Aminotransferase 13 U/L (0-41); Albumin Level 4.5 g/dL (3.5-5.2); Alkaline Phosphatase 100 U/L (40-130); Anion Gap 17.2 (5-19); Aspartate Amino Transferase 11 U/L (0-40); Blood Urea Nitrogen 22 mg/dL (8-23); Calcium 9.6 mg/dL (8.5-10.5); Carbon Dioxide 25 mmol/L (22-29); Chloride 103 mmol/L (98-107); Creatinine Clr Calc Pharmacy 92.2622; Globulin 2.5 g/dL (1.3-4.6); Glucose 139 mg/dL (65-115); Osmolality Calculated 298 mOsm/kg (285-295); Potassium 4.2 mmol/L (3.5-5.1); Sodium 141 mmol/L (136-145); Total Bilirubin 0.5 mg/dL (0.15-1.2)
== END 2024-04-18 23:59 | disposition home or self-care (01) ==
PROVIDERS: PCP Family Medicine; Visit Provider Internal Medicine Medical Oncology
DX: C91.10 Chronic lymphocytic leukemia of B-cell type not having achieved remission (principal); Z53.9 Procedure and treatment not carried out, unspecified reason; R17 Unspecified jaundice; Z87.891 Personal history of nicotine dependence; Z79.899 Other long term (current) drug therapy; Z92.25 Personal history of immunosuppression therapy
CPT/HCPCS: 36415; 71260; 74177; 80053; 85025; 99214

== ENCOUNTER 2024-05-12 11:14 | Oncology outpatient (recurring) (ONCR) | payer MEDICARE, SELFPAY ==
[2024-05-12 11:47] LABS: Basophils % 0.1 %; Eosinophils % 0.1 %; Hematocrit 45.3 % (37-53); Lymphocytes # 1.8 10^3/uL (0.8-4.8); Lymphocytes % 25.6 %; Mean Platelet Volume 9.1 fL (7.4-10.4); Monocytes # 0.8 10^3/uL (0.2-0.9); Monocytes % 11.7 %; Neutrophils # 4.23 10^3/uL (1.8-7.7); Neutrophils % 61.9 %; Nucleated Red Blood Cells % 0 %; Platelet Count 195 10^3/cmm (157-399); Red Blood Count 4.82 10^6/uL (3.85-5.65); Red Cell Distribution Width 12.8 % (12.1-15.1); White Blood Count 6.84 10^3/uL (3.29-11.43)
[2024-05-12 12:01] LABS: Alanine Aminotransferase 19 U/L (0-41); Albumin Level 4.4 g/dL (3.5-5.2); Alkaline Phosphatase 106 U/L (40-130); Anion Gap 15.6 (5-19); Aspartate Amino Transferase 12 U/L (0-40); Blood Urea Nitrogen 19 mg/dL (8-23); Calcium 9.5 mg/dL (8.5-10.5); Carbon Dioxide 25 mmol/L (22-29); Chloride 103 mmol/L (98-107); Creatinine Clr Calc Pharmacy 84.2403; Globulin 2.7 g/dL (1.3-4.6); Glucose 110 mg/dL (65-115); Lactate Dehydrogenase 123 U/L (135-225); Osmolality Calculated 291 mOsm/kg (285-295); Potassium 4.6 mmol/L (3.5-5.1); Sodium 139 mmol/L (136-145); Total Bilirubin 0.5 mg/dL (0.15-1.2); Total Protein 7.1 g/dL (6.6-8.7)
== END 2024-05-16 23:59 | disposition home or self-care (01) ==
PROVIDERS: PCP Family Medicine; Visit Provider Internal Medicine Medical Oncology
DX: C91.10 Chronic lymphocytic leukemia of B-cell type not having achieved remission (principal); R19.7 Diarrhea, unspecified; Z87.891 Personal history of nicotine dependence; Z79.899 Other long term (current) drug therapy; Z79.69 Long term (current) use of other immunomodulators and immunosuppressants
CPT/HCPCS: 36415; 80053; 83615; 84550; 85025; 99214

== ENCOUNTER 2024-07-15 14:16 | Oncology outpatient (recurring) (ONCR) | payer MEDICARE, SELFPAY ==
[2024-07-15 14:36] LABS: Basophils % 0.3 %; Eosinophils % 0.1 %; Hematocrit 46.5 % (37-53); Lymphocytes # 1.7 10^3/uL (0.8-4.8); Lymphocytes % 23.9 %; Mean Corpuscular HGB Conc 33.3 g/dL (30-55); Mean Corpuscular Hemoglobin 31.4 pg (27-33); Mean Corpuscular Volume 94.1 fl (82-101); Mean Platelet Volume 9.5 fL (7.4-10.4); Monocytes # 0.9 10^3/uL (0.2-0.9); Monocytes % 12.2 %; Neutrophils # 4.42 10^3/uL (1.8-7.7); Neutrophils % 63.2 %; Nucleated Red Blood Cells % 0 %; Platelet Count 208 10^3/cmm (157-399); Red Blood Count 4.94 10^6/uL (3.85-5.65); White Blood Count 6.99 10^3/uL (3.29-11.43)
[2024-07-15 14:52] LABS: Alanine Aminotransferase 16 U/L (0-41); Albumin Level 4.2 g/dL (3.5-5.2); Alkaline Phosphatase 108 U/L (40-130); Anion Gap 16.3 (5-19); Aspartate Amino Transferase 11 U/L (0-40); Blood Urea Nitrogen 19 mg/dL (8-23); Calcium 9.1 mg/dL (8.5-10.5); Carbon Dioxide 27 mmol/L (22-29); Chloride 101 mmol/L (98-107); Creatinine Clr Calc Pharmacy 77.3244; Globulin 2.6 g/dL (1.3-4.6); Glucose 107 mg/dL (65-115); Lactate Dehydrogenase 122 U/L (135-225); Osmolality Calculated 293 mOsm/kg (285-295); Potassium 4.3 mmol/L (3.5-5.1); Sodium 140 mmol/L (136-145); Total Bilirubin 0.5 mg/dL (0.15-1.2); Total Protein 6.8 g/dL (6.6-8.7); Uric Acid 7.7 mg/dL (3.4-7.0)
== END 2024-07-16 23:59 | disposition home or self-care (01) ==
PROVIDERS: Nurse Practitioner Family; PCP Family Medicine; Visit Provider Internal Medicine Medical Oncology
DX: Z51.11 Encounter for antineoplastic chemotherapy (principal); C91.10 Chronic lymphocytic leukemia of B-cell type not having achieved remission; Z87.891 Personal history of nicotine dependence; Z79.69 Long term (current) use of other immunomodulators and immunosuppressants
CPT/HCPCS: 36415; 80053; 83615; 84550; 85025; 99214

== ENCOUNTER 2024-09-09 12:23 | Oncology outpatient (recurring) (ONCR) | payer MEDICARE, SELFPAY ==
[2024-09-09 13:04] LABS: Basophils % 0.3 %; Eosinophils % 0.1 %; Hematocrit 46.7 % (37-53); Lymphocytes # 1.5 10^3/uL (0.8-4.8); Lymphocytes % 20.8 %; Mean Corpuscular HGB Conc 32.8 g/dL (30-55); Mean Corpuscular Hemoglobin 31.2 pg (27-33); Mean Corpuscular Volume 95.1 fl (82-101); Mean Platelet Volume 9.6 fL (7.4-10.4); Monocytes # 0.5 10^3/uL (0.2-0.9); Monocytes % 7.6 %; Neutrophils % 70.8 %; Nucleated Red Blood Cells % 0 %; Platelet Count 205 10^3/cmm (157-399); Red Blood Count 4.91 10^6/uL (3.85-5.65); Red Cell Distribution Width 13.4 % (12.1-15.1); White Blood Count 7.07 10^3/uL (3.29-11.43)
[2024-09-09 13:31] LABS: Alanine Aminotransferase 17 U/L (0-41); Albumin Level 4.3 g/dL (3.5-5.2); Alkaline Phosphatase 108 U/L (40-130); Anion Gap 17.4 (5-19); Aspartate Amino Transferase 13 U/L (0-40); Blood Urea Nitrogen 15 mg/dL (8-23); Calcium 9.1 mg/dL (8.5-10.5); Carbon Dioxide 25 mmol/L (22-29); Chloride 102 mmol/L (98-107); Globulin 2.6 g/dL (1.3-4.6); Glucose 150 mg/dL (65-115); Osmolality Calculated 294 mOsm/kg (285-295); Potassium 4.4 mmol/L (3.5-5.1); Sodium 140 mmol/L (136-145); Total Bilirubin 0.5 mg/dL (0.15-1.2); Total Protein 6.9 g/dL (6.6-8.7)
== END 2024-09-15 23:59 | disposition home or self-care (01) ==
PROVIDERS: PCP Family Medicine; Visit Provider Internal Medicine
DX: C91.10 Chronic lymphocytic leukemia of B-cell type not having achieved remission (principal); Z87.891 Personal history of nicotine dependence; R19.7 Diarrhea, unspecified; Z79.899 Other long term (current) drug therapy; Z79.69 Long term (current) use of other immunomodulators and immunosuppressants; R17 Unspecified jaundice
CPT/HCPCS: 36415; 80053; 85025; 99213

== ENCOUNTER 2024-11-11 11:25 | Oncology outpatient (recurring) (ONCR) | payer MEDICARE, SELFPAY ==
[2024-11-11 11:59] LABS: Hematocrit 43.7 % (37-53); Hemoglobin 14.80 g/dL (11.27-16.99); Mean Corpuscular HGB Conc 33.9 g/dL (30-55); Mean Corpuscular Hemoglobin 32.4 pg (27-33); Mean Corpuscular Volume 95.6 fl (82-101); Nucleated Red Blood Cells % 0 %; Platelet Count 249 10^3/cmm (157-399); Red Blood Count 4.57 10^6/uL (3.85-5.65); White Blood Count 7.13 10^3/uL (3.29-11.43)
[2024-11-11 12:16] LABS: Alanine Aminotransferase 16 U/L (0-41); Albumin Level 4.2 g/dL (3.5-5.2); Alkaline Phosphatase 103 U/L (40-130); Anion Gap 12.3 (5-19); Aspartate Amino Transferase 14 U/L (0-40); Blood Urea Nitrogen 16 mg/dL (8-23); Calcium 9.1 mg/dL (8.5-10.5); Carbon Dioxide 28 mmol/L (22-29); Chloride 102 mmol/L (98-107); Globulin 2.5 g/dL (1.3-4.6); Glucose 154 mg/dL (65-115); Osmolality Calculated 290 mOsm/kg (285-295); Potassium 4.3 mmol/L (3.5-5.1); Sodium 138 mmol/L (136-145); Total Protein 6.7 g/dL (6.6-8.7); Uric Acid 8.3 mg/dL (3.4-7.0)
[2024-11-12 05:24] LABS: PROTEIN, TOTAL 6.3 g/dL (6.1-8.1)
[2024-11-12 14:45] LABS: ALPHA 1 GLOBULIN 0.3 g/dL (0.2-0.3); ALPHA 2 GLOBULIN 0.8 g/dL (0.5-0.9); BETA 1 GLOBULIN 0.4 g/dL (0.4-0.6); BETA 2 GLOBULIN 0.3 g/dL (0.2-0.5)
== END 2024-11-16 23:59 | disposition home or self-care (01) ==
PROVIDERS: Internal Medicine; PCP Family Medicine; Visit Provider Internal Medicine Medical Oncology
DX: C91.10 Chronic lymphocytic leukemia of B-cell type not having achieved remission (principal); Z87.891 Personal history of nicotine dependence; Z79.899 Other long term (current) drug therapy; Z79.69 Long term (current) use of other immunomodulators and immunosuppressants
CPT/HCPCS: 36415; 80053; 82784; 83010; 83615; 84155; 84165; 84550; 85025; 86334; 99214

== ENCOUNTER 2025-03-17 11:45 | Oncology outpatient (recurring) (ONCR) | payer MEDICARE, SELFPAY ==
--- NOTE | 2025-03-09 09:15 | CT_ITS ---
WS: [id number] CT CHEST, ABDOMEN AND PELVIS WITH CONTRAST HISTORY: CLL TECHNIQUE: Contiguous 5 mm axial imaging performed through the chest, abdomen and pelvis with IV contrast, oral contrast has been provided. Coronal and sagittal reformats chest. Coronal and sagittal reformats through the abdomen and pelvis. All CT scans at [facility] use at least one of these dose optimization techniques: automated exposure control; mA and/or kV adjustment per patient size (includes targeted exams where dose is matched to clinical indication); or iterative reconstruction. CONTRAST: Omnipaque 350; 100 mL IV. DLP: 1618.28 mGy.cm COMPARISON: 04/08/2024, 08/30/[address]: Mild dependent changes at the lung bases. No mass or pulmonary nodule. No pneumonia. Crowding of the lung markings due to poor inspiration. No axillary, hilar or mediastinal adenopathy. Mild atherosclerosis aorta. Normal size aorta and pulmonary artery. Normal size heart. No pericardial or pleural effusions. Small hiatal hernia. Mild gynecomastia. Abdomen CT: Normal size liver and spleen. Spleen measures 13.0 cm in length. No liver masses. Normal gallbladder. No intrahepatic duct dilatation. Normal pancreas. Bilateral adrenal gland hyperplasia and thickening. Similar to the prior study. Mild atherosclerosis aorta. No renal obstruction. Bilateral renal cysts. Largest cyst from the RIGHT kidney with a transverse diameter of 11.2 cm. No GI tract obstruction. Mild constipation. Normal appendix. Small retrocrural lymph nodes are stable. Small cystic nodule contacting the caudate lobe of the liver may be a hepatic cyst or cystic lymph node. No interval size changer several prior exams. There are several mesenteric and retroperitoneal lymph nodes. Largest lymph node at the celiac axis measuring 18 mm which has increased in size by 2 mm. Overall the lymph node burden in the retroperitoneum just below the level of the renal arteries and surrounding the aorta has progressed. There is been a slight increase in the size and number of these lymph nodes measuring up to 14 mm. Small lymph nodes along the iliac chains and inguinal regions are stable. Pelvic CT: Fat-containing bilateral inguinal canals. No free fluid. CT/CT chest abdpel w/*[id number] IMPRESSION: 1. Very slight increase in size and number of the mesenteric and retroperitone al lymph nodes since 04/08/2024. Some of the lymph nodes appear to have increase d in size by approximately 2 mm. 2. No ascites. 3. No pulmonary mass or nodule. 4. No mediastinal or hilar adenopathy. 5. Normal size spleen.
[2025-03-09 09:36] LABS: Blood Urea Nitrogen 12 mg/dL (8-23)
[2025-03-09] MEDS: iohexol 350 mg/mL 500 mL Btl (per mL) PO (09:59)
[2025-03-09] MEDS: iohexol 350 mg/mL 500 mL Btl (per mL) IV (09:59)
[2025-03-17 11:50] LABS: Hematocrit 49.2 % (37-53); Hemoglobin 15.80 g/dL (11.27-16.99); Mean Corpuscular HGB Conc 32.1 g/dL (30-55); Mean Corpuscular Hemoglobin 30.0 pg (27-33); Mean Corpuscular Volume 93.5 fl (82-101); Nucleated Red Blood Cells % 0 %; Platelet Count 275 10^3/cmm (157-399); Red Blood Count 5.26 10^6/uL (3.85-5.65); White Blood Count 8.71 10^3/uL (3.29-11.43)
[2025-03-17 12:10] LABS: Alanine Aminotransferase 12 U/L (0-41); Albumin Level 4.3 g/dL (3.5-5.2); Alkaline Phosphatase 113 U/L (40-130); Anion Gap 14.7 (5-19); Aspartate Amino Transferase 11 U/L (0-40); Blood Urea Nitrogen 16 mg/dL (8-23); Calcium 9.1 mg/dL (8.5-10.5); Carbon Dioxide 26 mmol/L (22-29); Chloride 103 mmol/L (98-107); Globulin 2.7 g/dL (1.3-4.6); Glucose 77 mg/dL (65-115); Osmolality Calculated 288 mOsm/kg (285-295); Potassium 4.7 mmol/L (3.5-5.1); Sodium 139 mmol/L (136-145); Total Protein 7.0 g/dL (6.6-8.7); Uric Acid 6.7 mg/dL (3.4-7.0)
[2025-03-18 05:55] LABS: PROTEIN, TOTAL 6.7 g/dL (6.1-8.1)
[2025-03-18 18:10] LABS: ALPHA 1 GLOBULIN 0.3 g/dL (0.2-0.3); ALPHA 2 GLOBULIN 0.9 g/dL (0.5-0.9); BETA 1 GLOBULIN 0.4 g/dL (0.4-0.6); BETA 2 GLOBULIN 0.3 g/dL (0.2-0.5)
== END 2025-03-18 23:59 | disposition home or self-care (01) ==
PROVIDERS: Nurse Practitioner; PCP Family Medicine; Visit Provider Internal Medicine Medical Oncology
DX: Z53.9 Procedure and treatment not carried out, unspecified reason; C91.10 Chronic lymphocytic leukemia of B-cell type not having achieved remission; N28.1 Cyst of kidney, acquired; Z87.891 Personal history of nicotine dependence
CPT/HCPCS: 71260; 74177; 80053; 82565; 82784; 83010; 83615; 84155; 84165; 84520; 84550; 85025; 86334; 99214